=== PATIENT | male | born 1960 | race Caucasian/White ===

== ENCOUNTER 2017-11-19 19:04 | Inpatient (IN) | payer SELFPAY ==
[~2017-11-19] VITALS: Ht 175.3 cm; Wt 83.5 kg
--- NOTE | 2017-11-19 19:04 | ER Report ---
History and Physical Time Seen By MD: 19:04 HPI/ROS CHIEF COMPLAINT: Difficulty Breathing, vomiting HISTORY OF PRESENT ILLNESS: 57-year-old male brought in by EMS from home with vomiting. He's been sick for one week with flu-type symptoms. Patient denies significant past medical history he was a former smoker, quit 13 years ago. Patient states she's been very thirsty and drinking lots of water. He states he 's been vomiting up approximate 70% when he's been drinking. He denies fever, chills or productive cough. He has 3-4 word dyspnea on arrival. Patient notes that he suffers from severe GERD. He takes Prilosec occasionally REVIEW OF SYSTEMS: Respiratory: As above Cardiovascular: No chest pain, no palpitations. Gastrointestinal: As above Musculoskeletal: No back pain. 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 Former smoker, quit 13 years ago Reviewed Nurses Notes: Yes Old Medical Records Reviewed: Yes Constitutional Vital Sign - Last 24 Hours 11/19/17 11/19/17 11/19/17 11/19/17 19:05 19:19 19:22 19:22 Temp 98.5 Pulse 103 103 100 Resp 24 16 B/P (MAP) 142/88 Pulse Ox 97 97 97 O2 Delivery Room Air Room Air 11/19/17 11/19/17 11/19/17 11/19/17 19:23 19:23 19:34 20:04 Pulse 98 100 102 Pulse Ox 100 96 97 O2 Delivery Room Air 11/19/17 11/19/17 11/19/17 11/19/17 20:19 20:31 20:34 20:49 Pulse 185 93 109 Resp 17 13 18 B/P (MAP) 125/79 (94) Pulse Ox 96 96 96 11/19/17 11/19/17 21:00 21:15 Pulse 105 Resp 25 B/P (MAP) 139/79 (99) Pulse Ox 94 Physical Exam Vital signs stable, afebrile, pulse ox normal General Appearance: The patient is alert, has no immediate need for airway protection and no current signs of toxicity. 3-4word dyspnea ENT: Pupils equal and round no injection. Pharynx with mild erythema, dry mucous membranes Respiratory: Chest is non tender, lungs are clear to auscultation. No wheezing or rails Cardiac: regular rate and rhythm Gastrointestinal: Abdomen is soft and non tender, no masses, bowel sounds normal. Musculoskeletal: Neck: Neck is supple and non tender. Extremities have full range of motion and are non tender. Skin: No rashes or lesions. DIFFERENTIAL DIAGNOSIS: After history and physical exam differential diagnosis was considered for shortness of breath including but not limited to pulmonary infectious process, COPD, asthma, pulmonary embolus, diabetic ketoacidosis and congestive heart failure. Medical Decision Making Data Points Result Diagram: 11/20/17 0502 11/20/17 0502 Laboratory Hematology Test 11/19/17 00:00 11/19/17 19:12 11/19/17 19:13 Venous Blood pH 7.24 (7.31-7.41) Magnesium Level 2.3 mg/dl (1.7-2.2) Amylase Level 73 U/L (0-110) Lipase 157 U/L (23-300) Acetone, Qualitative Moderate D-Dimer Quantitative (PE/DVT) 0.37 ug/ml (0-0.50) B-Type Natriuretic Peptide 29 pg/ml (0-100) Influenza Virus Type A (PCR) Negative (NEGATIVE) Influenza Virus Type B (PCR) Negative (NEGATIVE) Chemistry Test 11/19/17 00:00 11/19/17 19:12 11/19/17 19:13 Venous Blood pH 7.24 (7.31-7.41) Magnesium Level 2.3 mg/dl (1.7-2.2) Amylase Level 73 U/L (0-110) Lipase 157 U/L (23-300) Acetone, Qualitative Moderate D-Dimer Quantitative (PE/DVT) 0.37 ug/ml (0-0.50) B-Type Natriuretic Peptide 29 pg/ml (0-100) Influenza Virus Type A (PCR) Negative (NEGATIVE) Influenza Virus Type B (PCR) Negative (NEGATIVE) Coagulation Test 11/19/17 19:12 D-Dimer Quantitative (PE/DVT) 0.37 ug/ml Toxicology Test 11/19/17 00:00 Acetone, Qualitative Moderate EKG/Imaging EKG Interpretation 12 lead EK Rhythm: normal sinus rhythm Clarita: normal QRS: normal ST segments: normal without evidence of ischemia or dysrhythmia 12 lead EK. Because SVT noted on monitor by nurse Rhythm: Supraventricular tachycardia, narrow complex 196 for the rate. Clarita: normal QRS: normal ST segments: normal Imaging X-ray: Single view chest x-ray was obtained. I viewed the images myself on the PACS system. My interpretation of the images is: No infiltrate, no effusion, normal mediastinum. The radiologist interpretation had no clinically significant variation from this interpretation. ED Course/Re-evaluation Clinical Indication for ER IV: Hydration, IV Access ED Course Patient was minute to an examination room. H&P was done. The differential diagnoses was considered. On local examination, patient appears grossly short of breath. He's having 3-4 dyspnea. His vital signs are stable. His pulse ox is normal. Diagnostic studies are ordered. He is treated with IV fluid hydration, DuoNeb. His history sounds like influenza comp acute by pneumonia. Diagnostic studies show acute DKA. Chest x-ray is negative. He is treated with IV insulin 10 units regular. He started on the insulin drip. He started on a bicarbonate drip after receiving 1 amp of bicarbonate. After returning from x-ray, he is noted to be in SVT at a rate of 200. An EKG is performed documented this. He is given diltiazem 10 mg IV 3 over the next 30 minutes. Finally is in a sinus rhythm at approximately 100 bpm. On transfer to ICU. 11/19/2017 8:25:10 pm case discussed with Dr. Eloisa Gibson hospitalist on-call , who accepts the patient permission ICU. Decision to Disposition Date: Nov 19, 2017 Decision to Disposition Time: 19:46 Critical Care Time I spent a total of 60 minutes of critical care time in obtaining history, performing a physical exam, bedside monitoring of interventions, collecting and interpreting tests and discussion with consultants but not including time spent performing procedures. Depart Departure Latest Vital Signs Vital Signs Date Time Temp Pulse Resp B/P (MAP) Pulse Ox O2 Delivery O2 Flow Rate FiO2 11/19/17 21:15 105 25 94 11/19/17 21:00 139/79 (99) 11/19/17 19:23 Room Air 11/19/17 19:05 98.5 Impression: Primary Impression: Diabetic ketoacidosis Additional Impressions: New onset type 1 diabetes mellitus, uncontrolled Hyponatremia Polycythemia Supraventricular tachycardia Condition: Improved Disposition: Admitted from ER Problem Qualifiers Primary Impression: Diabetic ketoacidosis Diabetes mellitus type: type 1 Diabetes mellitus complication detail: without coma Qualified Codes: E10.10 - Type 1 diabetes mellitus with ketoacidosis without coma KATLIN ARORA DO Nov 19, 2017 19:04
[2017-11-19] MEDS ORDERED: NS(*) 0.9% 1000 ML BAG 1,000 ML IV ONE ×2 (19:07→19:40)
[2017-11-19] MEDS ORDERED: ALBUTEROL/IPRATROPIUM 3 ML NEB NEB ONE (19:10)
[2017-11-19 19:17] LABS: PLATELET COUNT, AUTOMATED 194 K/uL (150-450)
[2017-11-19] MEDS ORDERED: ONDANSETRON 4 MG/2 ML VIAL IVP ONE ×2 (19:20→21:15)
[2017-11-19] MEDS ORDERED: EMS NS 0.9%(*) 1000 ML BAG 1,000 ML IV ONE (19:20)
--- NOTE | 2017-11-19 19:31 | EKG ---
FACILITY: [facility] - [place] PATIENT NAME: VASHTI SNELL : [id number] MR: [id number] V: [id number] EXAM DATE: ORDERING PHYSICIAN: KATLIN ARORA TECHNOLOGIST: Raimundo Guallpa Reason : Blood Pressure : / mmHG Vent. Rate : 100 BPM Atrial Rate : 100 BPM P-R Int : 168 ms QRS Dur : 100 ms QT Int : 414 ms P-R-T Axes : 048 068 024 degrees QTc Int : 534 ms Normal sinus rhythm Possible Left atrial enlargement Prolonged QT Abnormal ECG Confirmed by VITALIY VALDEZ ([id number]) on 11/19/2017 7:56:41 PM Referred By: Confirmed By:VITALIY VALDEZ
[2017-11-19] MEDS ORDERED: INSU HUM REG 100 U/ML(ER ONLY) 10 ML VIAL IVP ONE (19:40)
[2017-11-19] MEDS ORDERED: SODIUM BICAR(* 8.4% 50 ML SYR 50 ML SYR IVP ONE (19:40)
[2017-11-19] MEDS ORDERED: INSULIN HUM REG 100 UN/ML 3 ML 100 UNIT in NS(*) 0.9% 100 ML BAG 99 ML IV ONE (19:50)
[2017-11-19] MEDS ORDERED: INSULIN HUM REG 100 UN/ML 3 ML 100 UNIT in NS(*) 0.9% 100 ML BAG 100 ML IV ONE (19:50)
[2017-11-19] MEDS ORDERED: DILTIAZEM 5 MG/ML 5ML IVPUSH IVP ONE ×3 (20:15→21:20)
[2017-11-19] MEDS ORDERED: POTASSIUM CHL 20 MEQ TABCR PO ONE (20:15)
--- NOTE | 2017-11-19 20:30 | EKG ---
FACILITY: [facility] - [place], [place] PATIENT NAME: VASHTI SNELL : [id number] MR: [id number] V: [id number] EXAM DATE: ORDERING PHYSICIAN: KATLIN ARORA TECHNOLOGIST: Raimundo Guallpa Reason : Blood Pressure : / mmHG Vent. Rate : 196 BPM Atrial Rate : 196 BPM P-R Int : 114 ms QRS Dur : 096 ms QT Int : 162 ms P-R-T Axes : 038 070 259 degrees QTc Int : [address] and T wave abnormality, consider inferior ischemia ST and T wave abnormality, consider anterolateral ischemia Abnormal ECG No previous ECGs available Confirmed by VITALIY VALDEZ ([id number]) on 11/19/2017 8:44:21 PM Referred By: Confirmed By:VITALIY VALDEZ
--- NOTE | 2017-11-19 20:35 | RADIOLOGY IMAGING REPORT ---
FACILITY: [facility] PATIENT NAME: Nikhil Orozco : 1960 MR: [id number] V: [id number] EXAM DATE: ORDERING PHYSICIAN: KATLIN ARORA TECHNOLOGIST: Location: [facility] Patient: Nikhil Orozco : 1960 Visit/Account:[id number] Date of Sevice: 11/19/2017 CHEST: Indication: Respiratory distress. Technique: Frontal and lateral views were obtained. Comparison: None. Skeletal and soft tissue structures: There are mild degenerative changes in the thoracic spine. No ac porsche skeletal deformity is identified. Heart and mediastinum: Within normal limits. Lung ring: Well-expanded and clear. No focal or diffuse opacities. Pleural spaces: Unremarkable. Impression: No acute process. Report Dictated By: Mariano Wiggins MD at 11/19/2017 8:30 PM Report E-Signed By: Mariano Wiggins MD at 11/19/2017 8:32 PM WSN:[id number]
[2017-11-19] MEDS ORDERED: SODIUM BICAR 8.4%* 50 MEQ/50ML 100 MEQ in NS 0.45%(*) 1000 ML BAG 1,000 ML IV SCH (20:45)
[2017-11-19] MEDS ORDERED: PROMETHAZINE 25 MG/ML 1 ML AMP IVP ONE (21:20)
[2017-11-19 21:51] VITALS: BP 125/79
[2017-11-19] MEDS ORDERED: OMEP-218 PO (22:01)
[2017-11-19] MEDS ORDERED: KCL 2 MEQ/ML 20 MEQ/10 ML VIAL 20 MEQ in NS 0.45%(*) 1000 ML BAG 1,000 ML IV SCH (22:16)
[2017-11-19] MEDS ORDERED: INFLUENZA VIRUS VAC 0.5 ML SYR IM ONLY ONE (22:20)
[2017-11-19 22:30] VITALS: BP 107/78
[2017-11-19] MEDS ORDERED: NS 0.45%(*) 1000 ML BAG 1,000 ML ONE (22:44)
--- NOTE | 2017-11-19 22:48 | History & Physical ---
History of Present Illness Chief Complaint Nausea, vomiting and chills for one week. History of Present Illness The patient is a 57 year old male with PMH of GERD who presents with one week of N/V/D. The patient states he has felt feverish and has had chills with this. He has not seen a doctor in 23 years but does self treat GERD symptoms with omeprazole OTC. The patient states his appetite has been very poor and he has not eaten well for the past week. Prior to feeling ill one week ago, the patient denies weight loss, polydipsia, polyuria or polyphagia. He has had some pain in his neck and back due to old injuries. History Problems: (1) GERD (gastroesophageal reflux disease) Status: Chronic Home Meds Reported Medications Omeprazole Magnesium (PRILOSEC OTC) 20 Mg Tablet., 1 TAB PO QDAY, TAB 11/19/17 Allergies: Coded Allergies: No Known Drug Allergies (Unverified , 11/19/17) Patient History: FH: CAD (coronary artery disease) FATHER FH: COPD (chronic obstructive pulmonary disease) FATHER FH: HTN (hypertension) FATHER FH: dementia FATHER FH: pulmonary embolism FATHER Stroke or transient ischemic attack in father FATHER Vascular disease MOTHER Other Social/Family Hx Single. 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 Hx Smoking: Yes Smoking Status: Smoker: Status Unknown (Quit 13 years ago.) Hx Alcohol Use: Yes Alcohol Use: Occassional (Quit drinking heavily 13 years ago. Has had a couple of drinks only since then.) Hx Substance Use Disorder: Yes (Cocaine. Stopped 13 years ago.) Social Drug Use: Currently Social Drugs: Marijuana History of IV Drug Use: No Review of Systems Constitutional: Chills, No Weight Loss Neurological: Weakness Cardiovascular: No Chest Pain Respiratory: No Shortness of Breath Gastrointestinal: Nausea, Vomiting, Diarrhea Genitourinary: No Dysuria Musculoskeletal: Pain (Neck and back.) Psychiatric: No Depression Exam Vital Signs Vital Signs Date Time Temp Pulse Resp B/P (MAP) Pulse Ox O2 Delivery O2 Flow Rate FiO2 11/19/17 22:00 109 11/19/17 21:51 98.5 24 125/79 (94) 97 Room Air General Appearance: Alert, Awake, Afebrile, Other (Tremulous.) Neuro: No Gross deficits Eyes: PERRLA Neck: No Masses Cardiovascular: Other (Tachy, regular.) Respiratory: No Respiratory Distress, Clear to Auscultation (Anteriorly.) GI: Other (Abdomen soft, tender in the RUQ to palpation. No rebound. No masses. ) Extremities: Warm, Perfused Integumentary: Skin Intact without Lesion / Mass Psych: Appropriate Mood & Affect Medical Decision Making Data Points Result Diagram: 11/19/17191111/19/171911 Item Value Date Time Calcium Level 9.0 mg/dl 11/19/171911 Magnesium Level 2.3 mg/dl H 11/19/17 0000 Total Bilirubin 2.2 mg/dl H 11/19/171911 Aspartate Amino Transf (AST/SGOT) 22 U/L 11/19/171911 Alanine Aminotransferase (ALT/SGPT) 45 U/L 11/19/171911 Troponin I 0.014 ng/ml 11/19/171911 Total Protein 7.7 gm/dl 11/19/171911 Albumin 4.7 g/dl 11/19/171911 B-Type Natriuretic Peptide 29 pg/ml 11/19/171911 Lactate 2.5 mmol/L H 11/19/171911 Acetone, Qualitative Moderate 11/19/17 0000 Influenza Virus Type B (PCR) Negative 11/19/171912 Influenza Virus Type A (PCR) Negative 11/19/171912 Venous Blood pH 7.24 L 11/19/17 0000 D-Dimer Quantitative (PE/DVT) 0.37 ug/ml 11/19/171911 Blood cultures X 2 ordered. EKG / Imaging EKG Interpretation FACILITY: [facility] - [place] PATIENT NAME: NIKHIL SNELL : [id number] MR: [id number] V: [id number] EXAM DATE: ORDERING PHYSICIAN: KATLIN ARORA TECHNOLOGIST: Raimundo Guallpa Reason : Blood Pressure : / mmHG Vent. Rate : 196 BPM Atrial Rate : 196 BPM P-R Int : 114 ms QRS Dur : 096 ms QT Int : 162 ms P-R-T Axes : 038 070 259 degrees QTc Int : [address] and T wave abnormality, consider inferior ischemia ST and T wave abnormality, consider anterolateral ischemia Abnormal ECG No previous ECGs available Confirmed by VITALIY VALDEZ ([id number]) on 11/19/2017 8:44:21 PM Referred By: Confirmed By:VITALIY VALDEZ 07 T: JOSE/ FACILITY: [facility] - [place] PATIENT NAME: NIKHIL SNELL : [id number] MR: [id number] V: [id number] EXAM DATE: ORDERING PHYSICIAN: KATLIN ARORA TECHNOLOGIST: Raimundo Test Reason : Blood Pressure : / mmHG Vent. Rate : 100 BPM Atrial Rate : 100 BPM P-R Int : 168 ms QRS Dur : 100 ms QT Int : 414 ms P-R-T Axes : 048 068 024 degrees QTc Int : 534 ms Normal sinus rhythm Possible Left atrial enlargement Prolonged QT Abnormal ECG Confirmed by VITALIY VALDEZ ([id number]) on 11/19/2017 7:56:41 PM Referred By: Confirmed By:VITALIY VALDEZ 11 T: JOSE/ Monitor Interpretation: Sinus Tachycardia Imaging FACILITY: [facility] - [place] PATIENT NAME: Nikhil Snell : 1960 MR: [id number] V: [id number] EXAM DATE: ORDERING PHYSICIAN: KATLIN ARORA TECHNOLOGIST: Location: [facility] Patient: Nikhil Snell : 1960 Visit/Account:[id number] Date of Sevice: 11/19/2017 CHEST: Indication: Respiratory distress. Technique: Frontal and lateral views were obtained. Comparison: None. Skeletal and soft tissue structures: There are mild degenerative changes in the thoracic spine. No acute skeletal deformity is identified. Heart and mediastinum: Within normal limits. Lung ring: Well-expanded and clear. No focal or diffuse opacities. Pleural spaces: Unremarkable. Impression: No acute process. Report Dictated By: Mariano Wiggins MD at 11/19/2017 8:30 PM Report E-Signed By: Mariano Wiggins MD at 11/19/2017 8:32 PM WSN:[id number] Pre-Admit Course ED Medications Zofran, NS, insulin, potassium chloride, diltiazem, promethazine, sodium bicarb , Duoneb. Medical Record Review: Yes (ER notes.) Assessment and Plan Problems: (1) Diabetic ketoacidosis Status: Acute Assessment & Plan: BS was elevated at 469. Acetone was measured at moderate. His pH was 7.2. Potassium 3.8. Sodium 117. Will repeat a BMP to reassess electrolytes immediately. Continue insulin gtt. Monitor glucoses hourly. Adjust rate as needed. To keep from increasing his sodium level too quickly will place on 1/2NS with 20meq of KCl at 125ml/hr. Once his glucose is nearing 200, will switch to D51/2 NS with 20meq KCl. Magnesium level was WNL.Initial lactate high. Will repeat. (2) Nausea & vomiting Assessment & Plan: LFTs are WNL. Treat with antiemetics. Will use promethazine rather than Zofran as his QT interval is prolonged. Hydrate. Protonix bid IV. (3) New onset type 1 diabetes mellitus, uncontrolled Status: Acute Assessment & Plan: Will order a C-peptide level and HgA1c. (4) Hyponatremia Status: Acute Assessment & Plan: Severe. His sodium corrects to about 122. Will hydrate as above and monitor BMPs every 6 hours. Adjust fluids as needed. (5) Supraventricular tachycardia Status: Acute Assessment & Plan: The patient had several bouts of SVT while in the ER. He was successfully treated with Cardizem pushes. Will monitor and treat as needed. (6) GERD (gastroesophageal reflux disease) Status: Chronic Assessment & Plan: Will place on IV Protonix 40mg bid. Time Spent on Plan of Care: < 30 min Venous Thromboembolism VTE Risk Physician Assess for VTE Risk: Yes Patient's VTE Risk: Low VTE Diagnostic Test 2 Days Prior to Admit: No Antithrombotics Is Pt On Any Antithrombotics?: Yes Exam Sepsis Risk: No Definite Risk Problem Qualifiers (1) Diabetic ketoacidosis: Diabetes mellitus type: type 1 Diabetes mellitus complication detail: without coma Qualified Codes: E10.10 - Type 1 diabetes mellitus with ketoacidosis without coma (2) GERD (gastroesophageal reflux disease): Esophagitis presence: esophagitis presence not specified Qualified Codes: K21.9 - Gastro-esophageal reflux disease without esophagitis VITALIY REBOLLEDO MD Nov 19, 2017 22:48
[2017-11-19] MEDS ORDERED: KCL 2 MEQ/ML 20 MEQ/10 ML VIAL ONE ×2 (22:49)
[2017-11-19 23:00] VITALS: BP 120/77
[2017-11-19] MEDS ORDERED: INS HUM REG* 100 U/ML(ER ONLY) 100 UNIT in NS(*) 0.9% 100 ML BAG 99 ML IV SCH (23:15)
[2017-11-19] MEDS: PANTOPRAZOLE SOD 40 MG IV VIAL IVP SCH (23:28)
[2017-11-19 23:30] VITALS: BP 118/72
[2017-11-19] MEDS: KCL (*) 20 MEQ/100 ML PREMIX 100 ML IV SCH (23:37)
[2017-11-20] VITALS (28 sets, daily range): BP systolic 97–144; BP diastolic 60–80; Ht 175.3 cm; Wt 83.5 kg
[2017-11-20] MEDS ORDERED: KCL/D1/2NS 20 MEQ 1000 ML 1,000 ML IV ONE (00:35)
[2017-11-20] MEDS ORDERED: KCL 2 MEQ/ML 20 MEQ/10 ML VIAL 20 MEQ in D5 1/2 NS(*) 1000 ML BAG 1,000 ML IV SCH (00:40)
[2017-11-20] MEDS ORDERED: KCL/D1/2NS 20 MEQ 1000 ML 1,000 ML IV SCH (00:55)
[2017-11-20] MEDS: KCL (*) 20 MEQ/100 ML PREMIX 100 ML IV SCH ×3 (01:59→21:09)
[2017-11-20] MEDS ORDERED: INS HUM REG* 100 U/ML(ER ONLY) 100 UNIT in NS(*) 0.9% 100 ML BAG 99 ML IV SCH (02:28)
[2017-11-20 05:21] LABS: PLATELET COUNT, AUTOMATED 137 K/uL (150-450)
[2017-11-20] MEDS ORDERED: INSULIN GLARGINE 100 U/ML 3 ML PEN SUBQ SCH (09:00)
[2017-11-20] MEDS: PANTOPRAZOLE SOD 40 MG IV VIAL IVP SCH ×2 (09:04→21:09)
[2017-11-20] MEDS: ENOXAPARIN 40 MG/0.4ML SYR SC SCH (09:05)
[2017-11-20] MEDS: PROMETHAZINE 25 MG/ML 1 ML AMP IVP PRN ×2 (09:11→21:10)
--- NOTE | 2017-11-20 10:01 | Hospitalist Progress Note ---
Subjective Progress Notes Subjective Overall improving. He did have some nausea this morning. Physical Exam Vital Signs Date Time Temp Pulse Resp B/P (MAP) Pulse Ox O2 Delivery O2 Flow Rate FiO2 11/20/17 07:30 104 17 103/74 (84) 87 11/20/17 07:17 98.8 Room Air Intake and Output 11/21/17 07:00 Intake Total 1516.1 ml Output Total 50 ml Balance 1466.1 ml Intake Oral 1180 ml IV Total 336.1 ml Emesis 50 ml General Appearance: Alert, Awake, No Acute Distress Cardiovascular: Regular Rate and Rhythm Respiratory: Clear to Auscultation GI: Soft and Non-Tender Extremities: No Edema Result Diagram: 11/20/17 0502 11/20/17 0502 Monitor Interpretation: Sinus Tachycardia Assessment and Plan Problems: (1) Diabetic ketoacidosis Status: Acute Assessment & Plan: He presented with months of excessive thirst and polyuria and then a week of N/V/D. In the ER, glucose 469, acetone moderate, AG 34, bicarbonate 7, and venous pH was 7.2. He was aggressively hydrated and started on an insulin drip. The AG has normalized and the bicarbonate 20. His glucose is 187-203 since about midnight. He will be given 20 units of Lantus, and the insulin drip/D5 1/2 NS stopped. HgA1c and C-Peptide pending. Diabetic counselor to see tomorrow. Likely, he will go home on Lantus, but potentially could be switched to oral treatment based on his C-Peptide (it won't be back for a number of days) (2) Nausea & vomiting Assessment & Plan: LFTs are WNL. Treat with antiemetics. Will use promethazine rather than Zofran as his QT interval is prolonged. Protonix bid IV. (3) Hyponatremia Status: Acute Assessment & Plan: Likely, related to the vomiting and diarrhea. His sodium corrected to about 122 upon admission. This morning it is about 127 with correction. He was hydrated, but now saline locked. BMP later this morning. (4) Supraventricular tachycardia Status: Acute Assessment & Plan: The patient had several bouts of SVT while in the ER. He was successfully treated with Cardizem pushes. Will monitor and treat as needed. (5) GERD (gastroesophageal reflux disease) Status: Chronic Assessment & Plan: Will place on IV Protonix 40mg bid. Exam Sepsis Risk: No Definite Risk Problem Qualifiers (1) Diabetic ketoacidosis: Diabetes mellitus type: type 1 Diabetes mellitus complication detail: without coma Qualified Codes: E10.10 - Type 1 diabetes mellitus with ketoacidosis without coma (2) GERD (gastroesophageal reflux disease): Esophagitis presence: esophagitis presence not specified Qualified Codes: K21.9 - Gastro-esophageal reflux disease without esophagitis CHINA LARKIN MD Nov 20, 2017 10:01
[2017-11-20] MEDS: INSULIN HUM LISPRO 100 UN/ML 3 ML VIAL SUBQ PRN ×3 (12:34→21:21)
[2017-11-20] MEDS ORDERED: NS(*) 0.9% 1000 ML BAG 1,000 ML IV ONE (18:20)
[2017-11-21 02:32] VITALS: BP 131/75
[2017-11-21 06:25] LABS: PLATELET COUNT, AUTOMATED 110 K/uL (150-450)
[2017-11-21 07:17] VITALS: BP 126/81
[2017-11-21] MEDS: INSULIN HUM LISPRO 100 UN/ML 3 ML VIAL SUBQ PRN ×2 (07:57→12:26)
[2017-11-21 08:45] VITALS: BP 129/82
[2017-11-21] MEDS ORDERED: INSULIN GLARGINE 100 U/ML 3 ML PEN SUBQ SCH (09:00)
[2017-11-21] MEDS ORDERED: INSU100I28 SQ (09:15)
[2017-11-21] MEDS ORDERED: INSU100I30 SUBQ (09:15)
[2017-11-21] MEDS: PANTOPRAZOLE SOD 40 MG IV VIAL IVP SCH (09:20)
--- NOTE | 2017-11-21 09:20 | Hospitalist Depart ---
Discharge Summary Reason for Hosp/Final Diag: (1) Diabetic ketoacidosis Status: Acute Hospital Course & Plan: He did present with hyperglycemia and ketoacidosis, but had no prior history of diagnosed diabetes. He was started on an insulin infusion and received fluid resuscitation. He has now weaned to subcutaneous insulin. He will discharge on Lantus and mealtime Humalog. (2) Nausea & vomiting Hospital Course & Plan: Resolved with treatment of DKA. (3) Hyponatremia Status: Acute Hospital Course & Plan: Resolved with correction of his glucose. (4) Supraventricular tachycardia Status: Acute Hospital Course & Plan: He did have several bouts of SVT while in the ER. He was successfully treated with Cardizem. Departure Latest Vital Signs Vital Signs 11/21/17 11/21/17 02:32 07:17 Temp 98.4 Pulse 92 Resp 17 B/P (MAP) 126/81 (96) Pulse Ox 96 O2 Delivery Room Air Weight (Pounds): 184 Weight (Ounces): 1.0 Result Diagram: 11/21/17 0537 11/21/17 0537 Condition: Improved Discharge: Home, Self Care Follow-Up Labs: Finger Sticks Discharge Instructions Home Meds Active Scripts Insulin Lispro 3 Ml Prefilled (HUMALOG 3 ML PEN) 100 Unit/1 Ml Insuln.pen, 4 UNIT SQ TIDAC, #3 ML 1 Refill Prov:LALI PRATER DO 11/21/17 Insulin Glargine,Hum.rec.anlog (LANTUS SOLOSTAR) 100 Unit/1 Ml Insuln.pen, 30 UNIT SUBQ DAILY, #3 ML 1 Refill Prov:LALI PRATER DO 11/21/17 Discontinued Reported Medications Omeprazole Magnesium (PRILOSEC OTC) 20 Mg Tablet., 1 TAB PO QDAY, TAB 11/19/17 Activity: As Tolerated Venous Thromboembolism Antithrombotics Is Pt On Any Antithrombotics?: Yes Problem Qualifiers (1) Diabetic ketoacidosis: Diabetes mellitus type: type 1 Diabetes mellitus complication detail: without coma Qualified Codes: E10.10 - Type 1 diabetes mellitus with ketoacidosis without coma LALI PRATER DO Nov 21, 2017 09:20
[2017-11-21] MEDS: ENOXAPARIN 40 MG/0.4ML SYR SC SCH (09:21)
[2017-11-21 12:27] VITALS: BP 139/92
--- NOTE | 2017-11-21 13:39 | Medical Nutrition Therapy ---
Nutrition Anthropometrics Height (Inches): 69.00 Height (Calculated Centimeters: 175.063211 Weight (Pounds): 184 Weight (Calculated Kilograms): 83.489 BMI Calculated: 27.17 Awais Nutrition Score: Probably Inadequate Awais Nutrition Risk Score: 20 Dietary Referral Nutrition Risk Factors: Nutrition Risk Comment: Physical Findings Physical Appearance: Overweight BMI 25-29 Skin Appearance Skin Appearance: Edema Edema Location Modifier: Edema Location: Type of Edema: Degree of Edema: Gastrointestinal Symptoms GI Symtoms: Heartburn Tube Present: Bowel Sounds: Recent Bowel Pattern: Stool Characteristics: Nutrition/Food History Breakfast: eggs, sausage, 1 sl WW toast Lunch: sandwich Dinner: meat, starch Snacks: candy- large amount Nutritional Diagnosis Nutritional Risk Acuity 2: Pr Appetite > 3d, Diabetes New Dx, DKA Nutritional Acuity: 2-Moderate Adjusted Energy Requirement Re: 2500 (30 kcal/kg) Protein Requirement: 83 (1gm/kg) Fluid Requirement: 2500 (30ml/kg) Nutrition Intervention: Cont diet as ordered, Encourage intake Nutritional Education Nutrition Education Topic: Diabetic Nutrition Learning Readiness: Interested Teaching Methods: Discussion, Handout Response to Teaching: Verbalize understanding, Reinforcement needed Teaching Recipient: Patient Nutrition Counseling: Reviewed glycemic response to foods. Discussed CHO to consume for insulin rx. Discussed BG testing. Reviewed CHO content of foods and gave meal plan of 45-60gm CHO/meal. Pt states he eat "a lot" of candy before bedtime. Recommend having a protein and CHO before bedtime. If craving candy. Recommend limiting to 5gm CHO i.e 2 hersy kisses or a dove chocolate. Recommended pt go to [facility] for more education. Nutrition Monitoring & Eval Nutrition Goals: Eat 75-100% Meal RD Patient Assessment Time: [address] Assessment Type: RD Assessment Patient Nutrition Acuity: 2-Moderate Follow Up Date: Nov 25, 2017 Nutritional Comment: 3/4 Pt with new dx T1DM and DKA. Admitting BG 469, has declined to 200's. Pt is receiving insulin. Diet was just advanced to carb controlled. No intake reported at this time. Pt reporting months of excessive thirst and polyuria and then a week of N/V/D. Nursing states pt not feeling well today, will start diabetic education 11/21. 11/21 Pt cont N/V. Ate 25-50% of meals. Provided diabetic diet education and discussed glucometer testing. Pt will be given glucometer and instructed in hopsital. Recommend pt f/u with [facility]. ANA GUILLEN Nov 21, 2017 13:39
== END 2017-11-21 15:51 | disposition home or self-care (01) | DRG 638 ==
LOC: ER 19:06 → ICU 21:22 → MED 11-20 18:24
PROVIDERS: ADMIT Internal Medicine; ATTEND Internal Medicine
DX: E10.10 Type 1 diabetes mellitus with ketoacidosis without coma (principal); E87.1 Hypo-osmolality and hyponatremia; I47.1 Supraventricular tachycardia; K21.9 Gastro-esophageal reflux disease without esophagitis; D75.1 Secondary polycythemia; Z87.891 Personal history of nicotine dependence
CPT/HCPCS: 36415; 36416; 71046; 81001; 82009; 82040; 82150; 82247; 82310; 82374; 82435; 82565; 82800; 82947; 82948; 83036; 83605; 83690; 83735; 83880; 84075; 84132; 84155; 84295; 84450; 84460; 84484; 84520; 84681; 85025; 85379; 87502; 93005; 94640; 96365; 96368; 96375; 96376; 97161; 99285; 99291; C9113; J1650; J1815; J2405; J2550; J3480; J3490; J7030; J7050

== ENCOUNTER → 2017-11-19 | Outpatient (CLI) | payer SELFPAY ==
[~2017-11-19] MED LIST: INSU100I28 SQ; INSU100I30 SUBQ; OMEP-218 PO
[2017-11-20 11:03] VITALS: BMI 27.2
== END ==
LOC: AMB 18:47
PROVIDERS: ATTEND Nurse Practitioner
DX: R53.1 Weakness (principal); R11.10 Vomiting, unspecified; R68.83 Chills (without fever); R06.02 Shortness of breath
CPT/HCPCS: A0425; A0427

== ENCOUNTER 2018-02-02 21:56 | Emergency (ER) | payer SELFPAY ==
[2017-11-20 11:03] VITALS: Wt 90.7 kg
--- NOTE | 2018-02-02 22:01 | ER Report ---
History and Physical Time Seen By MD: 22:01 HPI/ROS CHIEF COMPLAINT: Vomiting, abdominal pain, fever HISTORY OF PRESENT ILLNESS: 57-year-old insulin-dependent diabetic. Patient's been sick with vomiting all day, not feeling well. He said low-grade fever. She had one episode of diarrhea. Patient was admitted approximately 2 months ago with DKA. Patient denies rhinitis, sore throat or cough. Patient notes no dysuria. REVIEW OF SYSTEMS: Respiratory: No cough, no dyspnea. Cardiovascular: No chest pain, no palpitations. Gastrointestinal: As above Musculoskeletal: No back pain. Allergies: Coded Allergies: No Known Drug Allergies (Unverified , 11/19/17) Home Meds Active Scripts Ondansetron Hcl (ZOFRAN) 4 Mg Tablet, 4 MG PO Q6H Y for NAUSEA/VOMITING, #10 Prov:KATLIN ARORA DO 02/02/18 Insulin Lispro 100 Un/Ml Pen (HUMALOG 3 ML PEN) 100 Unit/1 Ml Insuln.pen, 4 UNIT SQ TIDAC, #3 ML 1 Refill Prov:LALI PRATER DO 11/21/17 Insulin Glargine 100 Un/Ml Pen (LANTUS SOLOSTAR PEN) 100 Unit/1 Ml Insuln.pen, 30 UNIT SUBQ DAILY, #3 ML 1 Refill Prov:LALI PRATER DO 11/21/17 Reviewed Nurses Notes: Yes Old Medical Records Reviewed: Yes Hx Smoking: Yes Smoking Status: Smoker: Status Unknown Hx Alcohol Use: Yes Constitutional Vital Sign - Last 24 Hours 02/02/18 02/02/18 02/02/18 02/02/18 22:04 22:09 22:15 22:26 Temp 98.7 Pulse 83 Resp 19 B/P (MAP) 176/109 (131) 176/109 150/108 (122) Pulse Ox 98 98 O2 Delivery Room Air 02/02/18 02/02/18 02/02/18 02/02/18 22:30 22:56 23:01 23:30 Pulse 92 82 Resp 21 16 B/P (MAP) 149/89 (109) 139/90 (106) Pulse Ox 96 96 02/02/18 02/03/18 02/03/18 23:31 00:00 00:01 Pulse 94 90 Resp 30 13 B/P (MAP) 113/77 (89) Pulse Ox 93 90 Physical Exam Vital signs stable, afebrile, pulse ox normal General Appearance: The patient is alert, has no immediate need for airway protection and no current signs of toxicity. HEENT: Pupils equal and round no injection. Oropharynx without redness or exudate, mucous membranes are moist Respiratory: Chest is non tender, lungs are clear to auscultation. Cardiac: regular rate and rhythm Gastrointestinal: Abdomen is soft, epigastric tenderness, no masses, bowel sounds normal. Musculoskeletal: Neck: Neck is supple and non tender. Extremities have full range of motion and are non tender. Skin: No rashes or lesions. DIFFERENTIAL DIAGNOSIS: After history and physical exam differential diagnosis was considered for DKA, gastroneuritis, food poisoning, viral syndrome, abdominal pain including but not limited to appendicitis, cholecystitis, gastritis and urinary tract infection. Medical Decision Making Data Points Result Diagram: 02/02/184 02/02/184 Laboratory Hematology Test 02/02/18 22:24 Red Blood Count 5.98 M/uL (4.00-5.60) Mean Corpuscular Volume 91.5 fL (80.0-96.0) Mean Corpuscular Hemoglobin 32.6 pg (26.0-33.0) Mean Corpuscular Hemoglobin Concent 35.7 g/dL (32.0-36.0) Red Cell Distribution Width 14.3 % (11.5-14.5) Mean Platelet Volume 9.6 fL (7.2-11.1) Neutrophils (%) (Auto) 85.5 % (39.4-72.5) Lymphocytes (%) (Auto) 6.0 % (17.6-49.6) Monocytes (%) (Auto) 8.2 % (4.1-12.4) Eosinophils (%) (Auto) 0.0 % (0.4-6.7) Basophils (%) (Auto) 0.3 % (0.3-1.4) Nucleated RBC Relative Count (auto) 0.0 /100WBC Neutrophils # (Auto) 12.7 K/uL (2.0-7.4) Lymphocytes # (Auto) 0.9 K/uL (1.3-3.6) Monocytes # (Auto) 1.2 K/uL (0.3-1.0) Eosinophils # (Auto) 0.0 K/uL (0.0-0.5) Basophils # (Auto) 0.0 K/uL (0.0-0.1) Nucleated RBC Absolute Count (auto) 0.01 K/uL Blood Gas Patient Temperature Unknown DEGREES Venous Blood pH 7.56 (7.31-7.41) Venous Blood Partial Pressure CO2 < 25 mmHg Venous Blood Partial Pressure O2 41 mmHg Venous Blood HCO3 22 mmol/L Venous Blood Oxygen Saturation 85 % Venous Blood Base Excess 0 mmol/L Oxygen Liters/Minute Unknown Sodium Level 142 mmol/L (137-145) Potassium Level 4.3 mmol/L (3.5-5.0) Chloride Level 98 mmol/L (98-107) Carbon Dioxide Level 20 mmol/L (22-30) Blood Urea Nitrogen 33 mg/dl (9-21) Creatinine 1.90 mg/dl (0.66-1.25) Glomerular Filtration Rate Calc 37.0 Random Glucose 330 mg/dl (75-110) Osmolality 312 mOSM/K (275-295) Lactate 3.8 mmol/L (0.7-2.1) Calcium Level 11.3 mg/dl (8.4-10.2) Total Bilirubin 2.4 mg/dl (0.2-1.3) Aspartate Amino Transf (AST/SGOT) 22 U/L (0-35) Alanine Aminotransferase (ALT/SGPT) 32 U/L (0-56) Alkaline Phosphatase 103 U/L (0-126) Troponin I < 0.012 ng/ml Total Protein 8.5 gm/dl (6.3-8.2) Albumin 5.3 g/dl (3.5-5.0) Acetone, Qualitative Negative Chemistry Test 02/02/18 22:24 White Blood Count 14.8 k/uL (4.5-11.0) Red Blood Count 5.98 M/uL (4.00-5.60) Hemoglobin 19.5 g/dL (14.0-18.0) Hematocrit 54.8 % (42.0-52.0) Mean Corpuscular Volume 91.5 fL (80.0-96.0) Mean Corpuscular Hemoglobin 32.6 pg (26.0-33.0) Mean Corpuscular Hemoglobin Concent 35.7 g/dL (32.0-36.0) Red Cell Distribution Width 14.3 % (11.5-14.5) Platelet Count 256 K/uL (150-450) Mean Platelet Volume 9.6 fL (7.2-11.1) Neutrophils (%) (Auto) 85.5 % (39.4-72.5) Lymphocytes (%) (Auto) 6.0 % (17.6-49.6) Monocytes (%) (Auto) 8.2 % (4.1-12.4) Eosinophils (%) (Auto) 0.0 % (0.4-6.7) Basophils (%) (Auto) 0.3 % (0.3-1.4) Nucleated RBC Relative Count (auto) 0.0 /100WBC Neutrophils # (Auto) 12.7 K/uL (2.0-7.4) Lymphocytes # (Auto) 0.9 K/uL (1.3-3.6) Monocytes # (Auto) 1.2 K/uL (0.3-1.0) Eosinophils # (Auto) 0.0 K/uL (0.0-0.5) Basophils # (Auto) 0.0 K/uL (0.0-0.1) Nucleated RBC Absolute Count (auto) 0.01 K/uL Blood Gas Patient Temperature Unknown DEGREES Venous Blood pH 7.56 (7.31-7.41) Venous Blood Partial Pressure CO2 < 25 mmHg Venous Blood Partial Pressure O2 41 mmHg Venous Blood HCO3 22 mmol/L Venous Blood Oxygen Saturation 85 % Venous Blood Base Excess 0 mmol/L Oxygen Liters/Minute Unknown Glomerular Filtration Rate Calc 37.0 Osmolality 312 mOSM/K (275-295) Lactate 3.8 mmol/L (0.7-2.1) Calcium Level 11.3 mg/dl (8.4-10.2) Total Bilirubin 2.4 mg/dl (0.2-1.3) Aspartate Amino Transf (AST/SGOT) 22 U/L (0-35) Alanine Aminotransferase (ALT/SGPT) 32 U/L (0-56) Alkaline Phosphatase 103 U/L (0-126) Troponin I < 0.012 ng/ml Total Protein 8.5 gm/dl (6.3-8.2) Albumin 5.3 g/dl (3.5-5.0) Acetone, Qualitative Negative Toxicology Test 02/02/18 22:24 Acetone, Qualitative Negative EKG/Imaging EKG Interpretation 12 lead EK Rhythm: normal sinus rhythm with sinus arrhythmia [place]: normal QRS: normal ST segments: normal, no evidence of ischemia or dysrhythmia ED Course/Re-evaluation Clinical Indication for ER IV: Hydration, IV Access ED Course Patient was admitted to an examination room. H&P was done. The differential diagnosis was considered. On clinical examination. Patient has a benign nonsurgical abdomen. He is significant epigastric tenderness. Diagnostic studies are sent off. Patient's complaining of vomiting and diarrhea. Patient' s treated with IV fluid hydration, Zofran 4 mg IV. She needs to have severe nausea is given Phenergan 12.5 mg and Toradol 30 mg IV. He is given 2 L of crystalloid. Feels much better. Diagnostic studies show elevated white blood cell count. There is no evidence of DKA. His pH is normal. There is no acetone in his serum. Patient will be discharged home and advised to monitor sugars closely. He is given a prescription for Zofran for nausea control. Decision to Disposition Date: February 02, 2018 Decision to Disposition Time: 23:28 Depart Departure Latest Vital Signs Vital Signs Date Time Temp Pulse Resp B/P (MAP) Pulse Ox O2 Delivery O2 Flow Rate FiO2 02/03/18 00:01 90 13 90 02/03/18 00:00 113/77 (89) 02/02/18 22:09 98.7 Room Air Impression: Primary Impression: Nausea & vomiting Additional Impressions: Abdominal pain Type I diabetes mellitus Condition: Improved Disposition: HOME OR SELF-CARE New Scripts Ondansetron Hcl (ZOFRAN) 4 Mg Tablet 4 MG PO Q6H Y for NAUSEA/VOMITING, #10 Prov: KATLIN ARORA DO 02/02/18 Patient Instructions: Abdominal Pain (ED), Acute Nausea and Vomiting (ED), Diabetic Hyperglycemia (ED) Additional Instructions: Follow clear liquid diet for 12 hours, then advance to [place] diet, bananas, rice , applesauce and toast Closely monitor your glucoses. Follow-up with your primary care if unimproved in 2-3 days Return to the ER for any worsening Problem Qualifiers Primary Impression: Nausea & vomiting Vomiting type: unspecified Vomiting Intractability: unspecified Qualified Codes: R11.2 - Nausea with vomiting, unspecified Additional Impressions: Abdominal pain Abdominal location: epigastric Qualified Codes: R10.13 - Epigastric pain Type I diabetes mellitus Diabetes mellitus complication status: without complication Qualified Codes: E10.9 - Type 1 diabetes mellitus without complications KATLIN ARORA DO February 02, 2018 22:01
[2018-02-02] MEDS ORDERED: ONDANSETRON 4 MG/2 ML VIAL IVP ONE (22:05)
[2018-02-02] MEDS ORDERED: NS(*) 0.9% 1000 ML BAG 1,000 ML IV ONE (22:05)
[2018-02-02 22:35] LABS: PLATELET COUNT, AUTOMATED 256 K/uL (150-450)
[2018-02-02] MEDS ORDERED: LR(*) 1000 ML BAG 1,000 ML VA PRN (23:10)
--- NOTE | 2018-02-02 23:14 | RADIOLOGY IMAGING REPORT ---
FACILITY: [facility] PATIENT NAME: Nikhil Orozco : 1960 MR: [id number] V: [id number] EXAM DATE: ORDERING PHYSICIAN: KATLIN ARORA TECHNOLOGIST: Location: [facility] Patient: Nikhil Orozco : 1960 Visit/Account:[id number] Date of Sevice: 02/02/2018 PORTABLE CHEST: Indication: Fever and vomiting. Technique: A single frontal film was obtained. Comparison: 11/19/2017 Skeletal and soft tissue structures: Intact and unremarkable. Heart and mediastinum: Within normal limits. Lung ring: Well-expanded and clear. No focal or diffuse opacities. Pleural spaces: Unremarkable. Impression: No acute process or significant change. Report Dictated By: Mariano Wiggins MD at 02/02/2018 11:09 PM Report E-Signed By: Mariano Wiggins MD at 02/02/2018 11:10 PM [id number]
[2018-02-02] MEDS ORDERED: KETOROLAC 30 MG/ML VIAL IVP ONE (23:15)
[2018-02-02] MEDS ORDERED: PROMETHAZINE 25 MG/ML 1 ML AMP IVP ONE (23:15)
[2018-02-02] MEDS ORDERED: ONDA4TAB97 PO (23:32)
[2018-02-03] VITALS: BP 113/77
[2018-02-03] MEDS ORDERED: ONDANSETRON 4 MG ODT TH SL ONE (00:15)
--- NOTE | 2018-02-03 01:05 | EKG ---
[place] [facility] [place] NAME: VASHTI SNELL : [id number] MR: [id number] V: [id number] EXAM DATE: ORDERING PHYSICIAN: KATLIN ARORA TECHNOLOGIST: KELLI Test Reason : DIABETIC KETOACIDOSS Blood Pressure : / mmHG Vent. Rate : 079 BPM Atrial Rate : 079 BPM P-R Int : 168 ms QRS Dur : 092 ms QT Int : 372 ms P-R-T Axes : 058 069 067 degrees QTc Int : 426 ms Normal sinus rhythm with sinus arrhythmia Normal ECG When compared with ECG of 19-NOV-2017 20:08, Vent. rate has decreased BY 117 BPM Non-specific change in ST segment in Inferior leads ST no longer depressed in Anterolateral leads T wave inversion no longer evident in Inferior leads T wave inversion no longer evident in Anterolateral leads Confirmed by CHINA LARKIN ([id number]) on 02/03/2018 1:53:13 AM Referred By: Confirmed By:CHINA LARKIN
[2018-02-04] MEDS ORDERED: ONDA4TAB PO (13:35)
== END 2018-02-03 00:25 | disposition home or self-care (01) ==
LOC: ER 22:16
DX: E10.9 Type 1 diabetes mellitus without complications (principal); R10.13 Epigastric pain; R11.2 Nausea with vomiting, unspecified
CPT/HCPCS: 71045; 82009; 82803; 83605; 83930; 84484; 85025; 93005; 96361; 96374; 96375; 99284; J1885; J2405; J2550; J7030; J7120; S0119; 82040; 82247; 82310; 82374; 82435; 82565; 82947; 84075; 84132; 84155; 84295; 84450; 84460; 84520

== ENCOUNTER 2018-02-04 09:00 | Emergency (ER) | payer SELFPAY ==
[2017-11-20 11:03] VITALS: Wt 90.7 kg
[~2018-02-04 09:00] MED LIST changes: +ONDA4TAB97 PO
--- NOTE | 2018-02-04 09:21 | ER Report ---
History and Physical Time Seen By MD: 09:05 Hx. of Stated Complaint: PT REPORTS VOMTING FOR 2.5 DAYS, DIABETIC, NOT ABLE TO KEEP ANYTHING DOWN HPI/ROS This is a 57-year-old male with a past medical history significant for diabetes. He was seen 2 days ago in the emergency department for the same complaint for which she is here today which is nausea and vomiting. Also complains of very mild diffuse abdominal pain. He has had decreased by mouth for the past few days as well. The symptoms seemed to start after he had a meal from [employer] 2 days ago. He denies any chest pain or shortness of breath. Symptoms have been constant since Tuesday. No urinary symptoms. Also states that his sugars have been elevated into the 200 range as well. Remainder of the 14 system rev: Yes Allergies: Coded Allergies: No Known Drug Allergies (Unverified , 02/04/18) Home Meds Active Scripts Ondansetron (ZOFRAN ODT) 4 Mg Tab.rapdis, 4 MG PO Q6H Y for NAUSEA/VOMITING, # 20 TAB.FRANCESCA 0 Refills Prov:JAIC CORREIA MD 02/04/18 Ondansetron Hcl (ZOFRAN) 4 Mg Tablet, 4 MG PO Q6H Y for NAUSEA/VOMITING, #10 Prov:KATLIN ARORA DO 02/02/18 Insulin Lispro 100 Un/Ml Pen (HUMALOG 3 ML PEN) 100 Unit/1 Ml Insuln.pen, 4 UNIT SQ TIDAC, #3 ML 1 Refill Prov:LALI PRATER DO 11/21/17 Insulin Glargine 100 Un/Ml Pen (LANTUS SOLOSTAR PEN) 100 Unit/1 Ml Insuln.pen, 30 UNIT SUBQ DAILY, #3 ML 1 Refill Prov:LALI PRATER DO 11/21/17 Reviewed Nurses Notes: Yes Old Medical Records Reviewed: Yes Hx Smoking: Yes Smoking Status: Smoker: Status Unknown Hx Substance Use Disorder: Yes (Cocaine. Stopped 13 years ago.) Hx Alcohol Use: Yes Constitutional Vital Sign - Last 24 Hours 02/04/18 02/04/18 02/04/18 02/04/18 09:03 09:10 09:30 10:00 Temp 98.1 Pulse 79 76 76 Resp 16 B/P (MAP) 173/101 173/101 (125) 164/97 (119) 155/93 (113) Pulse Ox 92 95 97 O2 Delivery Room Air 02/04/18 02/04/18 10:05 10:30 Pulse 74 B/P (MAP) 155/93 (113) Pulse Ox 99 Intake and Output 02/04/18 02/04/18 02/05/18 15:00 23:00 07:00 Intake Total 1000 ml Balance 1000 ml Physical Exam General Appearance: The patient is alert, has no immediate need for airway protection and no current signs of toxicity. Eyes: Pupils equal and round no injection. Respiratory: Chest is non tender, lungs are clear to auscultation. Cardiac: regular rate and rhythm Gastrointestinal: Abdomen is soft and non tender, no masses, bowel sounds normal. Extremities have full range of motion and are non tender. Skin: No rashes or lesions. DIFFERENTIAL DIAGNOSIS: After history and physical exam differential diagnosis was considered for abdominal pain including but not limited to appendicitis, cholecystitis, gastritis and urinary tract infection. Medical Decision Making Data Points Result Diagram: 02/04/1815 02/04/1815 Laboratory Hematology Test 02/04/18 00:00 02/04/18 09:15 02/04/18 12:08 Urine Color Yellow Urine Clarity Slightly-cloudy Urine pH 5.0 pH (4.8-9.5) Urine Specific [place] 1.024 Urine Protein 100 mg/dL (NEGATIVE) Urine Glucose (UA) 50 mg/dL (NEGATIVE) Urine Ketones 20 mg/dL (NEGATIVE) Urine Blood Negative (NEGATIVE) Urine Nitrite Negative (NEGATIVE) Urine Bilirubin Negative (NEGATIVE) Urine Urobilinogen Negative mg/dL (0.2-1.9) Urine Leukocyte Esterase Negative (NEGATIVE) Urine RBC None /HPF (0-2/HPF) Urine WBC 2 /HPF (0-5/HPF) Urine Squamous Epithelial Cells Moderate /LPF (</=FEW) Urine Bacteria Negative /HPF (NONE-FEW) Urine Hyaline Casts Many /LPF (NONE-FEW) Urine Mucus Few /HPF (NONE-FEW) Red Blood Count 6.09 M/uL (4.00-5.60) Mean Corpuscular Volume 90.7 fL (80.0-96.0) Mean Corpuscular Hemoglobin 32.2 pg (26.0-33.0) Mean Corpuscular Hemoglobin Concent 35.5 g/dL (32.0-36.0) Red Cell Distribution Width 14.2 % (11.5-14.5) Mean Platelet Volume 9.8 fL (7.2-11.1) Neutrophils (%) (Auto) 77.7 % (39.4-72.5) Lymphocytes (%) (Auto) 11.2 % (17.6-49.6) Monocytes (%) (Auto) 10.7 % (4.1-12.4) Eosinophils (%) (Auto) 0.1 % (0.4-6.7) Basophils (%) (Auto) 0.3 % (0.3-1.4) Nucleated RBC Relative Count (auto) 0.0 /100WBC Neutrophils # (Auto) 13.6 K/uL (2.0-7.4) Lymphocytes # (Auto) 2.0 K/uL (1.3-3.6) Monocytes # (Auto) 1.9 K/uL (0.3-1.0) Eosinophils # (Auto) 0.0 K/uL (0.0-0.5) Basophils # (Auto) 0.0 K/uL (0.0-0.1) Nucleated RBC Absolute Count (auto) 0.01 K/uL Sodium Level 136 mmol/L (137-145) Potassium Level 3.6 mmol/L (3.5-5.0) Chloride Level 88 mmol/L (98-107) Carbon Dioxide Level 25 mmol/L (22-30) Blood Urea Nitrogen 44 mg/dl (9-21) Creatinine 1.70 mg/dl (0.66-1.25) Glomerular Filtration Rate Calc 42.1 Random Glucose 231 mg/dl (75-110) Calcium Level 10.6 mg/dl (8.4-10.2) Total Bilirubin 4.7 mg/dl (0.2-1.3) Aspartate Amino Transf (AST/SGOT) 26 U/L (0-35) Alanine Aminotransferase (ALT/SGPT) 28 U/L (0-56) Alkaline Phosphatase 98 U/L (0-126) Total Protein 8.9 gm/dl (6.3-8.2) Albumin 5.2 g/dl (3.5-5.0) Lipase 124 U/L (23-300) Lactate 1.4 mmol/L (0.7-2.1) Chemistry Test 02/04/18 00:00 02/04/18 09:15 02/04/18 12:08 Urine Color Yellow Urine Clarity Slightly-cloudy Urine pH 5.0 pH (4.8-9.5) Urine Specific [place] 1.024 Urine Protein 100 mg/dL (NEGATIVE) Urine Glucose (UA) 50 mg/dL (NEGATIVE) Urine Ketones 20 mg/dL (NEGATIVE) Urine Blood Negative (NEGATIVE) Urine Nitrite Negative (NEGATIVE) Urine Bilirubin Negative (NEGATIVE) Urine Urobilinogen Negative mg/dL (0.2-1.9) Urine Leukocyte Esterase Negative (NEGATIVE) Urine RBC None /HPF (0-2/HPF) Urine WBC 2 /HPF (0-5/HPF) Urine Squamous Epithelial Cells Moderate /LPF (</=FEW) Urine Bacteria Negative /HPF (NONE-FEW) Urine Hyaline Casts Many /LPF (NONE-FEW) Urine Mucus Few /HPF (NONE-FEW) White Blood Count 17.4 k/uL (4.5-11.0) Red Blood Count 6.09 M/uL (4.00-5.60) Hemoglobin 19.6 g/dL (14.0-18.0) Hematocrit 55.3 % (42.0-52.0) Mean Corpuscular Volume 90.7 fL (80.0-96.0) Mean Corpuscular Hemoglobin 32.2 pg (26.0-33.0) Mean Corpuscular Hemoglobin Concent 35.5 g/dL (32.0-36.0) Red Cell Distribution Width 14.2 % (11.5-14.5) Platelet Count 261 K/uL (150-450) Mean Platelet Volume 9.8 fL (7.2-11.1) Neutrophils (%) (Auto) 77.7 % (39.4-72.5) Lymphocytes (%) (Auto) 11.2 % (17.6-49.6) Monocytes (%) (Auto) 10.7 % (4.1-12.4) Eosinophils (%) (Auto) 0.1 % (0.4-6.7) Basophils (%) (Auto) 0.3 % (0.3-1.4) Nucleated RBC Relative Count (auto) 0.0 /100WBC Neutrophils # (Auto) 13.6 K/uL (2.0-7.4) Lymphocytes # (Auto) 2.0 K/uL (1.3-3.6) Monocytes # (Auto) 1.9 K/uL (0.3-1.0) Eosinophils # (Auto) 0.0 K/uL (0.0-0.5) Basophils # (Auto) 0.0 K/uL (0.0-0.1) Nucleated RBC Absolute Count (auto) 0.01 K/uL Glomerular Filtration Rate Calc 42.1 Calcium Level 10.6 mg/dl (8.4-10.2) Total Bilirubin 4.7 mg/dl (0.2-1.3) Aspartate Amino Transf (AST/SGOT) 26 U/L (0-35) Alanine Aminotransferase (ALT/SGPT) 28 U/L (0-56) Alkaline Phosphatase 98 U/L (0-126) Total Protein 8.9 gm/dl (6.3-8.2) Albumin 5.2 g/dl (3.5-5.0) Lipase 124 U/L (23-300) Lactate 1.4 mmol/L (0.7-2.1) Urinalysis Test 02/04/18 00:00 Urine Color Yellow Urine Clarity Slightly-cloudy Urine pH 5.0 pH (4.8-9.5) Urine Specific [place] 1.024 Urine Protein 100 mg/dL (NEGATIVE) Urine Glucose (UA) 50 mg/dL (NEGATIVE) Urine Ketones 20 mg/dL (NEGATIVE) Urine Blood Negative (NEGATIVE) Urine Nitrite Negative (NEGATIVE) Urine Bilirubin Negative (NEGATIVE) Urine Urobilinogen Negative mg/dL (0.2-1.9) Urine Leukocyte Esterase Negative (NEGATIVE) Urine RBC None /HPF (0-2/HPF) Urine WBC 2 /HPF (0-5/HPF) Urine Squamous Epithelial Cells Moderate /LPF (</=FEW) Urine Bacteria Negative /HPF (NONE-FEW) Urine Hyaline Casts Many /LPF (NONE-FEW) Urine Mucus Few /HPF (NONE-FEW) EKG/Imaging Imaging Results: CT scan of the abdomen/pelvis was obtained. The results of the study are no acute findings. The study was read by the radiologist. I viewed the images myself on the PACS system. ED Course/Re-evaluation Clinical Indication for ER IV: Hydration ED Course This is a 57-year-old male with a past medical history significant for diabetes. He presents to the emergency department for the 2nd time in 2 days complaining of nausea and vomiting. He did not have any episodes of vomiting while in the emergency department. Noted is a leukocytosis. He had very mild abdominal pain, but given his leukocytosis and 2nd visit to the ED for the same complaint a CT scan of the abdomen and pelvis was obtained. No acute findings on his CT scan. He denies any chest pain or shortness of breath. The symptoms have improved after IV fluids and Zofran. He is able to take by mouth. He does not have any abdominal pain. I think his symptoms are likely secondary to a viral gastritis. He will follow-up with his primary care doc this week. I did give him a prescription for Zofran. Decision to Disposition Date: February 04, 2018 Decision to Disposition Time: 13:32 Depart Departure Latest Vital Signs Vital Signs Date Time Temp Pulse Resp B/P (MAP) Pulse Ox O2 Delivery O2 Flow Rate FiO2 02/04/18 10:30 155/93 (113) 02/04/18 10:05 74 99 02/04/18 09:03 98.1 16 Room Air Impression: Primary Impression: Nausea & vomiting Condition: Improved Disposition: HOME OR SELF-CARE New Scripts Ondansetron (ZOFRAN ODT) 4 Mg Tab.rapdis 4 MG PO Q6H Y for NAUSEA/VOMITING, #20 TAB.FRANCESCA 0 Refills Prov: JACI CORREIA MD 02/04/18 Patient Instructions: Acute Nausea and Vomiting (ED) Problem Qualifiers Primary Impression: Nausea & vomiting Vomiting type: unspecified Vomiting Intractability: non-intractable Qualified Codes: R11.2 - Nausea with vomiting, unspecified JACI CORREIA MD February 04, 2018 09:21
[2018-02-04] MEDS ORDERED: ONDANSETRON 4 MG/2 ML VIAL IVP ONE (09:30)
[2018-02-04] MEDS ORDERED: NS(*) 0.9% 1000 ML BAG 1,000 ML IV ONE (09:30)
[2018-02-04 09:39] LABS: PLATELET COUNT, AUTOMATED 261 K/uL (150-450)
--- NOTE | 2018-02-04 13:00 | RADIOLOGY IMAGING REPORT ---
FACILITY: [facility] PATIENT NAME: Nikhil Orozco : 1960 MR: [id number] V: [id number] EXAM DATE: ORDERING PHYSICIAN: JACI CORREIA TECHNOLOGIST: Location: [facility] Patient: Nikhil Orozco : 1960 Visit/Account:[id number] Date of Sevice: 02/04/2018 CT abdomen and pelvis without contrast Indication: Left lower quadrant pain. Elevated white blood cell count. Comparison: None Available. Technique: Axial CT images are obtained through the abdomen and pelvis. Reformatted coronal and sagit thea images were reviewed. IV contrast was not administered. One of the following dose optimization techniques was utilized in the performance of this exam: Autom ated exposure control; adjustment of the mA and/or kV according to the patient's size; or use of an i terative reconstruction technique. Specific details can be referenced in the facility's radiology C T exam operational policy. Findings: Lower lung ring: Lung bases are clear. Evaluation of the solid organs of the abdomen is limited without IV contrast. Liver: No focal parenchymal abnormality of the liver. Biliary: Gallbladder appears unremarkable as well as the intra and extra hepatic biliary system. Pancreas: Normal appearance. Spleen: Normal appearance. Adrenal glands: Unremarkable. Kidneys / retroperitoneum: No evidence of nephrolithiasis or hydronephrosis Bowel / peritoneum / mesenteries: There are scattered sigmoid colon diverticula. No evidence of wall thickening or pericolonic inflammation to suggest diverticulitis. No evidence of focal colitis. There is a normal appendix. No small bowel dilatation. Subtle stranding seen within the central mesentery compatible with a nonspecific enteritis. Lymph node assessment: No pathologic adenopathy identified. Pelvic structures: Appear unremarkable. Vessels: Scattered atherosclerotic calcifications seen throughout a nonaneurysmal abdominal aorta and branches. Musculoskeletal / Body wall: Degenerative changes involve the spine at multiple levels. There is a fat-containing left inguinal hernia. There is a small hiatal hernia. IMPRESSION: 1. No acute inflammatory process within the abdomen or the pelvis. 2. Colonic diverticula without diverticulitis. 3. Fat-containing left inguinal hernia. Report Dictated By: Yuval Sylvester at 02/04/2018 12:40 PM Report E-Signed By: Yuval Sylvester at 02/04/2018 12:55 PM [id number]
[2018-02-04] MEDS ORDERED: ONDA4TAB PO (13:35)
[2018-02-04 13:37] VITALS: BP 155/85
== END 2018-02-04 13:35 | disposition home or self-care (01) ==
LOC: ER 09:23
DX: R11.2 Nausea with vomiting, unspecified (principal); E11.9 Type 2 diabetes mellitus without complications; K57.30 Diverticulosis of large intestine without perforation or abscess without bleeding; K40.90 Unilateral inguinal hernia, without obstruction or gangrene, not specified as recurrent
CPT/HCPCS: 74176; 81001; 83605; 83690; 85025; 96361; 96374; 99284; J2405; J7030; 82040; 82247; 82310; 82374; 82435; 82565; 82947; 84075; 84132; 84155; 84295; 84450; 84460; 84520

== ENCOUNTER 2018-02-08 15:53 | Observation (INO) | payer SELFPAY ==
[~2018-02-08] VITALS: Ht 175.3 cm; Wt 81.8 kg
[~2018-02-08 15:53] MED LIST changes: +LABETALOL HCL 100 MG/20ML VIAL ONE; +ONDA4TAB PO; +ROCURONIUM BROM 10 MG/ML 10 ML ONE
[2018-02-08] MEDS ORDERED: NS(*) 0.9% 1000 ML BAG 1,000 ML IV ONE (16:10)
[2018-02-08] MEDS ORDERED: ONDANSETRON 4 MG/2 ML VIAL IVP ONE (16:10)
--- NOTE | 2018-02-08 16:15 | ER Report ---
History and Physical Time Seen By MD: 16:03 Hx. of Stated Complaint: PATIENT REPORT THAT HE IS HAVING ABDOMINAL PAIN, NAUSEA, VOMITING, CHILLS AND A RUNNY NOSE HPI/ROS CHIEF COMPLAINT: Nausea, vomiting, abdominal pain HISTORY OF PRESENT ILLNESS: Patient is a 57-year-old male who presents the ED with complaint of nausea, vomiting, abdominal pain for the past 7 days. Patient has been seen twice in the emergency department in this past week due to the symptoms. He has had blood work completed at both visits which did show some cytosis. He did have an abdominal/pelvis CT completed his last visit which did not show any acute process. He states that he has been taking Zofran with some relief of his nausea. He did go to his primary care provider today to get a refill of his Zofran but she wanted him to come to the emergency department for further evaluation. She was concerned about his gallbladder or appendix. Patient states he was diagnosed with diabetes 2 months ago. He denies any fever. He has not noted any chest pain or shortness of breath. Patient denies any headache. He has not noted any hematuria, dysuria, increased urinary frequency. REVIEW OF SYSTEMS: Constitutional: No fever, no chills. Eyes: No discharge. ENT: No sore throat. Cardiovascular: No chest pain, no palpitations. Respiratory: No cough, no shortness of breath. Gastrointestinal: See history of present illness. Genitourinary: See history of present illness. Musculoskeletal: No back pain. Skin: No rashes. Neurological: No headache. Allergies: Coded Allergies: No Known Drug Allergies (Unverified , 02/04/18) Home Meds Active Scripts Ondansetron (ZOFRAN ODT) 4 Mg Tab.rapdis, 4 MG PO Q6H Y for NAUSEA/VOMITING, # 20 TAB.FRANCESCA 0 Refills Prov:JACI CORREIA MD 02/04/18 Ondansetron Hcl (ZOFRAN) 4 Mg Tablet, 4 MG PO Q6H Y for NAUSEA/VOMITING, #10 Prov:KATLIN ARORA DO 02/02/18 Insulin Lispro 100 Un/Ml Pen (HUMALOG 3 ML PEN) 100 Unit/1 Ml Insuln.pen, 4 UNIT SQ TIDAC, #3 ML 1 Refill Prov:LALI PRATER DO 11/21/17 Insulin Glargine 100 Un/Ml Pen (LANTUS SOLOSTAR PEN) 100 Unit/1 Ml Insuln.pen, 30 UNIT SUBQ DAILY, #3 ML 1 Refill Prov:LALI PRATER DO 11/21/17 Reported Medications Lisinopril (LISINOPRIL) 10 Mg Tablet, 10 MG PO QDAY, TAB 02/08/18 Reviewed Nurses Notes: Yes Old Medical Records Reviewed: Yes Hx Smoking: Yes Smoking Status: Smoker: Status Unknown Hx Substance Use Disorder: Yes (Cocaine. Stopped 13 years ago.) Hx Alcohol Use: Yes Constitutional Vital Sign - Last 24 Hours 02/08/18 02/08/18 02/08/18 02/08/18 15:56 15:59 16:23 16:54 Temp 98.2 Pulse 80 Resp 20 B/P (MAP) 151/101 151/101 (118) 144/94 (111) Pulse Ox 99 02/08/18 02/08/18 02/08/18 02/08/18 17:01 17:06 17:15 17:21 Pulse 82 83 B/P (MAP) 129/85 (100) Pulse Ox 98 94 79 02/08/18 02/08/18 02/08/18 02/08/18 17:30 17:36 17:45 17:51 Pulse 74 76 B/P (MAP) 141/81 (101) 156/90 (112) Pulse Ox 93 98 02/08/18 02/08/18 02/08/18 02/08/18 18:00 18:06 18:11 18:15 Pulse 84 75 B/P (MAP) 135/89 (104) 127/70 (89) Pulse Ox 100 98 02/08/18 02/08/18 02/08/18 02/08/18 18:26 18:45 18:56 19:00 Pulse 73 B/P (MAP) 110/97 (101) 107/64 (78) Pulse Ox 98 96 02/08/18 02/08/18 02/08/18 02/08/18 19:11 19:15 19:26 19:30 Pulse 75 74 B/P (MAP) 122/80 (94) 110/65 (80) Pulse Ox 95 94 02/08/18 02/08/18 19:41 19:42 Pulse 82 78 Pulse Ox 97 97 Intake and Output 502/08/18 02/09/18 15:00 23:00 07:00 Intake Total 850 ml Balance 850 ml Physical Exam General Appearance: The patient is alert, has no immediate need for airway protection and no signs of toxicity. Patient appears to be in no acute distress. Eyes: Pupils equal and round no pallor or injection. ENT, Mouth: Mucous membranes are moist. Respiratory: There are no retractions, lungs are clear to auscultation. Cardiovascular: Regular rate and rhythm. Gastrointestinal: There is right upper quadrant, epigastric, right lower quadrant tenderness with palpation. No rebound or guarding is present. Normal bowel sounds in all 4 quadrants. Skin: Warm and dry, no rashes. Musculoskeletal: Neck is supple non tender. Extremities are nontender, nonswollen and have full range of motion. DIFFERENTIAL DIAGNOSIS: After history and physical exam differential diagnosis was considered for abdominal pain including but not limited to appendicitis, cholecystitis, gastritis and urinary tract infection. Medical Decision Making Data Points Result Diagram: 02/08/18 1625 02/08/18 1625 Laboratory Hematology Test 02/08/18 16:00 02/08/18 16:25 02/08/18 16:31 02/08/18 17:57 Urine Color Yellow Urine Clarity Clear Urine pH 5.0 pH (4.8-9.5) Urine Specific [place] 1.018 Urine Protein Negative mg/dL (NEGATIVE) Urine Glucose (UA) Negative mg/dL (NEGATIVE) Urine Ketones Negative mg/dL (NEGATIVE) Urine Blood Negative (NEGATIVE) Urine Nitrite Negative (NEGATIVE) Urine Bilirubin Negative (NEGATIVE) Urine Urobilinogen Negative mg/dL (0.2-1.9) Urine Leukocyte Esterase Negative (NEGATIVE) Urine RBC <1 /HPF (0-2/HPF) Urine WBC 1 /HPF (0-5/HPF) Urine Squamous Epithelial Cells None /LPF (</=FEW) Urine Bacteria Negative /HPF (NONE-FEW) Urine Hyaline Casts Few /LPF (NONE-FEW) Urine Mucus None /HPF (NONE-FEW) Red Blood Count 5.95 M/uL (4.00-5.60) Mean Corpuscular Volume 87.9 fL (80.0-96.0) Mean Corpuscular Hemoglobin 32.1 pg (26.0-33.0) Mean Corpuscular Hemoglobin Concent 36.6 g/dL (32.0-36.0) Red Cell Distribution Width 13.6 % (11.5-14.5) Mean Platelet Volume 10.1 fL (7.2-11.1) Neutrophils (%) (Auto) 66.1 % (39.4-72.5) Lymphocytes (%) (Auto) 18.9 % (17.6-49.6) Monocytes (%) (Auto) 14.0 % (4.1-12.4) Eosinophils (%) (Auto) 0.6 % (0.4-6.7) Basophils (%) (Auto) 0.4 % (0.3-1.4) Nucleated RBC Relative Count (auto) 0.1 /100WBC Neutrophils # (Auto) 8.7 K/uL (2.0-7.4) Lymphocytes # (Auto) 2.5 K/uL (1.3-3.6) Monocytes # (Auto) 1.9 K/uL (0.3-1.0) Eosinophils # (Auto) 0.1 K/uL (0.0-0.5) Basophils # (Auto) 0.1 K/uL (0.0-0.1) Nucleated RBC Absolute Count (auto) 0.02 K/uL Prothrombin Time 13.8 seconds (12.0-14.4) Prothromb Time International Ratio 1.05 Activated Partial Thromboplast Time 27 seconds (23-35) Sodium Level 124 mmol/L (137-145) Potassium Level 2.6 mmol/L (3.5-5.0) Chloride Level 82 mmol/L (98-107) Carbon Dioxide Level 28 mmol/L (22-30) Blood Urea Nitrogen 43 mg/dl (9-21) Creatinine 1.40 mg/dl (0.66-1.25) Glomerular Filtration Rate Calc 52.6 Random Glucose 131 mg/dl (75-110) Calcium Level 9.6 mg/dl (8.4-10.2) Total Bilirubin 5.0 mg/dl (0.2-1.3) Aspartate Amino Transf (AST/SGOT) 26 U/L (0-35) Alanine Aminotransferase (ALT/SGPT) 25 U/L (0-56) Alkaline Phosphatase 93 U/L (0-126) Total Protein 7.6 gm/dl (6.3-8.2) Albumin 4.2 g/dl (3.5-5.0) Lipase 11 U/L (23-300) Serum Alcohol < 10 mg/dl Lactate 1.6 mmol/L (0.7-2.1) Chemistry Test 02/08/18 16:00 02/08/18 16:25 02/08/18 16:31 02/08/18 17:57 Urine Color Yellow Urine Clarity Clear Urine pH 5.0 pH (4.8-9.5) Urine Specific [place] 1.018 Urine Protein Negative mg/dL (NEGATIVE) Urine Glucose (UA) Negative mg/dL (NEGATIVE) Urine Ketones Negative mg/dL (NEGATIVE) Urine Blood Negative (NEGATIVE) Urine Nitrite Negative (NEGATIVE) Urine Bilirubin Negative (NEGATIVE) Urine Urobilinogen Negative mg/dL (0.2-1.9) Urine Leukocyte Esterase Negative (NEGATIVE) Urine RBC <1 /HPF (0-2/HPF) Urine WBC 1 /HPF (0-5/HPF) Urine Squamous Epithelial Cells None /LPF (</=FEW) Urine Bacteria Negative /HPF (NONE-FEW) Urine Hyaline Casts Few /LPF (NONE-FEW) Urine Mucus None /HPF (NONE-FEW) White Blood Count 13.2 k/uL (4.5-11.0) Red Blood Count 5.95 M/uL (4.00-5.60) Hemoglobin 19.1 g/dL (14.0-18.0) Hematocrit 52.3 % (42.0-52.0) Mean Corpuscular Volume 87.9 fL (80.0-96.0) Mean Corpuscular Hemoglobin 32.1 pg (26.0-33.0) Mean Corpuscular Hemoglobin Concent 36.6 g/dL (32.0-36.0) Red Cell Distribution Width 13.6 % (11.5-14.5) Platelet Count 230 K/uL (150-450) Mean Platelet Volume 10.1 fL (7.2-11.1) Neutrophils (%) (Auto) 66.1 % (39.4-72.5) Lymphocytes (%) (Auto) 18.9 % (17.6-49.6) Monocytes (%) (Auto) 14.0 % (4.1-12.4) Eosinophils (%) (Auto) 0.6 % (0.4-6.7) Basophils (%) (Auto) 0.4 % (0.3-1.4) Nucleated RBC Relative Count (auto) 0.1 /100WBC Neutrophils # (Auto) 8.7 K/uL (2.0-7.4) Lymphocytes # (Auto) 2.5 K/uL (1.3-3.6) Monocytes # (Auto) 1.9 K/uL (0.3-1.0) Eosinophils # (Auto) 0.1 K/uL (0.0-0.5) Basophils # (Auto) 0.1 K/uL (0.0-0.1) Nucleated RBC Absolute Count (auto) 0.02 K/uL Prothrombin Time 13.8 seconds (12.0-14.4) Prothromb Time International Ratio 1.05 Activated Partial Thromboplast Time 27 seconds (23-35) Glomerular Filtration Rate Calc 52.6 Calcium Level 9.6 mg/dl (8.4-10.2) Total Bilirubin 5.0 mg/dl (0.2-1.3) Aspartate Amino Transf (AST/SGOT) 26 U/L (0-35) Alanine Aminotransferase (ALT/SGPT) 25 U/L (0-56) Alkaline Phosphatase 93 U/L (0-126) Total Protein 7.6 gm/dl (6.3-8.2) Albumin 4.2 g/dl (3.5-5.0) Lipase 11 U/L (23-300) Serum Alcohol < 10 mg/dl Lactate 1.6 mmol/L (0.7-2.1) Coagulation Test 02/08/18 16:25 Prothrombin Time 13.8 seconds Prothromb Time International Ratio 1.05 Activated Partial Thromboplast Time 27 seconds Toxicology Test 02/08/18 16:31 Serum Alcohol < 10 mg/dl Urinalysis Test 02/08/18 16:00 Urine Color Yellow Urine Clarity Clear Urine pH 5.0 pH (4.8-9.5) Urine Specific [place] 1.018 Urine Protein Negative mg/dL (NEGATIVE) Urine Glucose (UA) Negative mg/dL (NEGATIVE) Urine Ketones Negative mg/dL (NEGATIVE) Urine Blood Negative (NEGATIVE) Urine Nitrite Negative (NEGATIVE) Urine Bilirubin Negative (NEGATIVE) Urine Urobilinogen Negative mg/dL (0.2-1.9) Urine Leukocyte Esterase Negative (NEGATIVE) Urine RBC <1 /HPF (0-2/HPF) Urine WBC 1 /HPF (0-5/HPF) Urine Squamous Epithelial Cells None /LPF (</=FEW) Urine Bacteria Negative /HPF (NONE-FEW) Urine Hyaline Casts Few /LPF (NONE-FEW) Urine Mucus None /HPF (NONE-FEW) ED Course/Re-evaluation Clinical Indication for ER IV: Hydration ED Course Will obtain labs. Patient will be given 1 L normal saline bolus and 4 mm grams IV Zofran. 02/08/2018 6:16:54 pm - discussed patient with Dr. Chauhan, hospitalist from [facility] and Dr. Frey, senior radiation therapist from [facility] [place] after consultation but the patient did not believe that the patient needs a ERCP at this time. Advised to have the patient admitted to the local facility and hydrated and observed. Discussed patient with Dr. Gibson, hospitalist, who advises to obtain another CT of the abdomen/ pelvis. 02/08/2018 8:00:35 pm - discussed results of CT the abdomen and pelvis with Dr. Gibson, hospitalist, who will accept patient under his care. Discussed the results of all labs and imaging with the patient. Decision to Disposition Date: February 08, 2018 Decision to Disposition Time: 20:24 Depart Departure Latest Vital Signs Vital Signs Date Time Temp Pulse Resp B/P (MAP) Pulse Ox O2 Delivery O2 Flow Rate FiO2 02/08/18 19:42 78 97 02/08/18 19:30 110/65 (80) 02/08/18 15:56 98.2 20 Impression: Primary Impression: Leukocytosis Additional Impressions: Hyponatremia Hypokalemia Nausea & vomiting Abdominal pain Hyperbilirubinemia Condition: Improved Disposition: Admitted from ER Problem Qualifiers Primary Impression: Leukocytosis Leukocytosis type: unspecified Qualified Codes: D72.829 - Elevated white blood cell count, unspecified Additional Impressions: Nausea & vomiting Vomiting type: unspecified Vomiting Intractability: unspecified Qualified Codes: R11.2 - Nausea with vomiting, unspecified Abdominal pain Abdominal location: unspecified location Qualified Codes: R10.9 - Unspecified abdominal pain LAURA SANDERS PA-C February 08, 2018 16:15
[2018-02-08 16:39] LABS: PLATELET COUNT, AUTOMATED 230 K/uL (150-450)
[2018-02-08] MEDS ORDERED: KCL (*) 20 MEQ/100 ML PREMIX 100 ML IV ONE (16:50)
--- NOTE | 2018-02-08 16:52 | RADIOLOGY IMAGING REPORT ---
FACILITY: [facility] PATIENT NAME: Nikhil Orozco : 1960 MR: [id number] V: [id number] EXAM DATE: ORDERING PHYSICIAN: LAURA SANDERS TECHNOLOGIST: Location: [facility] [place] Patient: Nikhil Orozco : 1960 Visit/Account:[id number] Date of Sevice: 02/08/2018 Abdominal series with single view of the chest: 02/08/2018 4:17 PM HISTORY: Abdominal pain. Vomiting. Constipation. COMPARISON: Abdomen pelvis CT on 02/04/2015. Chest x-ray on 02/02/2018. FINDINGS: Some stool seen within the colon. Bowel gas pattern is nonobstructed and nondilated. Abdom inal soft tissues are grossly normal without suspicious lucencies or abnormal calcifications. No acut e bony abnormality. Lungs show no consolidation, pleural effusion or pneumothorax. No discrete nodule. Cardiomediastinal silhouette and pulmonary vessels within normal limits. No acute bony abnormality. IMPRESSION: 1. Unremarkable exam of the abdomen. 2. No acute cardiopulmonary process. Report Dictated By: Marco A Josue at 02/08/2018 4:45 PM Report E-Signed By: Marco A Josue at 02/08/2018 4:48 PM WSN:[id number]
[2018-02-08 17:12] LABS: INR 1.05
--- NOTE | 2018-02-08 18:20 | RADIOLOGY IMAGING REPORT ---
FACILITY: [facility] [place] PATIENT NAME: Nikhil Orozco : 1960 MR: [id number] V: [id number] EXAM DATE: ORDERING PHYSICIAN: LAURA SANDERS TECHNOLOGIST: Location: [facility] [place] Patient: Nikhil Orozco : 1960 Visit/Account:[id number] Date of Sevice: 02/08/2018 INDICATION: elevated bilirubin, leukocytosis. DATE: 02/08/2018 6:12 PM. TECHNIQUE: Abdominal ultrasound was performed with attention to the right upper quadrant. COMPARISON: CT abdomen and pelvis of February 04, 2018 FINDINGS: Much of the pancreas is obscured. The right lobe of the liver measures 15 cm. No ascites. Normal echogenicity. The right kidney measures 11.7 x 5.5 x 6.2 cm. Normal cortical thickness and echogenicity. No hydrone phrosis. The left kidney was not imaged. The gallbladder wall measures 3-4 mm in thickness. There is sludge in gallbladder. Some posterior sha dowing may reflect small calculi. No pericholecystic fluid. The salesperson burial needs reports a positive sonogr aphic Kern's sign. The common bile duct measures 2 mm. The aorta and IVC are patent within the imaged region. IMPRESSION: 1. There is gallbladder sludge, small stones are suggested, and the salesperson burial needs reports a positive so nographic Kern's sign. Report Dictated By: Rina Abdi MD at 02/08/2018 6:12 PM Report E-Signed By: Rina Abdi MD at 02/08/2018 6:17 PM WSN:[id number]
[2018-02-08] MEDS ORDERED: LISI-362 PO (18:22)
[2018-02-08] MEDS ORDERED: IOPAMIDOL 76% 75 ML INFUS BTL 75 ML ONE (18:27)
--- NOTE | 2018-02-08 19:20 | RADIOLOGY IMAGING REPORT ---
FACILITY: [facility] [place] PATIENT NAME: Nikhil Orozco : 1960 MR: [id number] V: [id number] EXAM DATE: ORDERING PHYSICIAN: LAURA SANDERS TECHNOLOGIST: Location: [facility] Patient: Nikhil Orozco : 1960 Visit/Account:[id number] Date of Sevice: 02/08/2018 EXAMINATION: CT abdomen with IV contrast CT pelvis with IV contrast History: Abdominal pain, leukocytosis. TECHNIQUE: Spiral scan was through the abdomen and pelvis during injection of nonionic iodinated in travenous contrast. One of the following dose optimization techniques was utilized in the performance of this exam: Automated exposure control; adjustment of the mA and/or kV according to the patient's size; or use of an iterative reconstruction technique. Specific details can be referenced in the [facility]'s radiology CT exam operational policy. Contrast: 75 mL of IV Isovue-[id number]. COMPARISON STUDIES: none. FINDINGS: Lower chest: negative Liver / biliary: negative Pancreas: negative Spleen: negative Adrenal glands: negative Kidneys / retroperitoneum: negative Pelvic structures: negative Bowel / peritoneum / mesenteries: negative Vessels: Mild to moderate atherosclerosis. Musculoskeletal / Body wall: negative Lymph node assessment: negative IMPRESSION: No evidence of acute abdominal or pelvic pathology. Normal appendix identified. Report Dictated By: Tylor Andres MD at 02/08/2018 7:12 PM Report E-Signed By: Tylor Andres MD at 02/08/2018 7:17 PM WSN:[email or web address]
[2018-02-08 19:58] VITALS: BP 131/82
[2018-02-08 20:01] VITALS: BP 131/82
[2018-02-08] MEDS ORDERED: KCL 2 MEQ/ML 20 MEQ/10 ML VIAL 20 MEQ in NS(*) 0.9% 1000 ML BAG 1,000 ML IV PRN (20:15)
--- NOTE | 2018-02-08 20:42 | History & Physical ---
History of Present Illness Chief Complaint Nausea and vomiting History of Present Illness 57yo male with PMHx significant for recently diagnosed DM (possibly type 1). He reports onset of nausea with frequent vomiting approximately one week ago. He has had some associated right-sided abdominal pain. No radiation of the pain. The symptoms seem to worsen after eating solid foods. He has tolerate dthe liquids much better and stated he has kept "probably 80%" of the fluids down. He has had periodic feverish and chilled sensations. No blood in vomitus. He denies any diarrhea. He reports one stool more than a week ago with a small amount of blood. He has been evaluated in the ER on three occasions. Repeat CT scan today was unremarkable. His WBC count is modestly elevated. Lipase is normal. His Na+ and K+ levels are low. His UA was unremarkable. His CXR was unremarkable as well. He was recommended for admission. History Problems: (1) GERD (gastroesophageal reflux disease) Status: Chronic (2) Type I diabetes mellitus Status: Chronic (3) Hyperbilirubinemia Status: Chronic Home Meds Active Scripts Ondansetron (ZOFRAN ODT) 4 Mg Tab.rapdis, 4 MG PO Q6H Y for NAUSEA/VOMITING, # 20 TAB.FRANCESCA 0 Refills Prov:JACI CORREIA MD 02/04/18 Ondansetron Hcl (ZOFRAN) 4 Mg Tablet, 4 MG PO Q6H Y for NAUSEA/VOMITING, #10 Prov:KATLIN ARORA DO 02/02/18 Insulin Lispro 100 Un/Ml Pen (HUMALOG 3 ML PEN) 100 Unit/1 Ml Insuln.pen, 4 UNIT SQ TIDAC, #3 ML 1 Refill Prov:LALI PRATER DO 11/21/17 Insulin Glargine 100 Un/Ml Pen (LANTUS SOLOSTAR PEN) 100 Unit/1 Ml Insuln.pen, 30 UNIT SUBQ DAILY, #3 ML 1 Refill Prov:LALI PRATER DO 11/21/17 Reported Medications Lisinopril (LISINOPRIL) 10 Mg Tablet, 10 MG PO QDAY, TAB 02/08/18 Allergies: Coded Allergies: No Known Drug Allergies (Unverified , 02/04/18) Patient History: FH: CAD (coronary artery disease) FATHER FH: COPD (chronic obstructive pulmonary disease) FATHER FH: HTN (hypertension) FATHER FH: dementia FATHER FH: pulmonary embolism FATHER Stroke or transient ischemic attack in father FATHER Vascular disease MOTHER Hx Smoking: Yes Smoking Status: Smoker: Status Unknown Hx Alcohol Use: Yes Hx Substance Use Disorder: Yes (Cocaine. Stopped 13 years ago.) Social Drug Use: Currently Social Drugs: Marijuana (usually on a daily basis (none for past several days)) Review of Systems Constitutional: Fever, Chills Neurological: No Syncope, No Confusion, No Weakness Eyes: No Vision Change, No Loss of Vision ENT: No Hearing Loss Cardiovascular: No Chest Pain, No Palpitations Respiratory: No Shortness of Breath, No Cough Gastrointestinal: Nausea, Vomiting, No Diarrhea, No Dysphagia, No Hematemesis, No Melena, Abdominal Pain Genitourinary: No Dysuria, No Hematuria, No Urinary Incontinence Musculoskeletal: No Pain, No Impaired Mobility Psychiatric: No Depression Exam Vital Signs Vital Signs Date Time Temp Pulse Resp B/P (MAP) Pulse Ox O2 Delivery O2 Flow Rate FiO2 02/08/18 20:11 96 02/08/18 20:01 98.3 75 16 131/82 (98) Room Air General Appearance: Alert, Awake Neuro: No Gross deficits Eyes: PERRLA ENT: Oropharynx Clear Neck: No Masses Cardiovascular: Regular Rate and Rhythm, No Edema, No JVD Respiratory: Clear to Auscultation Chest: No Tenderness GI: Other (Soft/BS present/minimal tenderness reported over right upper and lower quadrants) : No CVA Tenderness Lymph: No Adenopathy Extremities: Warm, Perfused Integumentary: Skin Intact without Lesion / Mass Psych: Alert & Oriented X3 Medical Decision Making Data Points Result Diagram: 02/08/18 1625 02/08/18 1625 Item Value Date Time Serum Alcohol < 10 mg/dl 02/08/18 1631 Urine Color Yellow 02/08/18 1600 Urine Clarity Clear 02/08/18 1600 Urine pH 5.0 pH 02/08/18 1600 Urine Specific [place] 1.018 02/08/18 1600 Urine Protein Negative mg/dL 02/08/18 1600 Urine Glucose (UA) Negative mg/dL 02/08/18 1600 Urine Ketones Negative mg/dL 02/08/18 1600 Urine Blood Negative 02/08/18 1600 Urine Nitrite Negative 02/08/18 1600 Urine Bilirubin Negative 02/08/18 1600 Urine Urobilinogen Negative mg/dL 02/08/18 1600 Urine Leukocyte Esterase Negative 02/08/18 1600 Urine RBC <1 /HPF 02/08/18 1600 Urine WBC 1 /HPF 02/08/18 1600 Urine Squamous Epithelial Cells None /LPF 02/08/18 1600 Urine Hyaline Casts Few /LPF 02/08/18 1600 Urine Bacteria Negative /HPF 02/08/18 1600 Urine Mucus None /HPF 02/08/18 1600 Lipase 11 U/L L 02/08/18 1625 Albumin 4.2 g/dl 02/08/18 1625 Total Protein 7.6 gm/dl 02/08/18 1625 Alkaline Phosphatase 93 U/L 02/08/18 1625 Alanine Aminotransferase (ALT/SGPT) 25 U/L 02/08/18 1625 Aspartate Amino Transf (AST/SGOT) 26 U/L 02/08/18 1625 Total Bilirubin 5.0 mg/dl H 02/08/18 1625 Calcium Level 9.6 mg/dl 02/08/18 1625 Lactate 1.6 mmol/L 02/08/18 1757 Activated Partial Thromboplast Time 27 seconds 02/08/18 1625 Prothromb Time International Ratio 1.05 02/08/18 1625 Prothrombin Time 13.8 seconds 02/08/18 1625 EKG / Imaging Imaging PATIENT NAME: Nikhil Orozco : 1960 MR: [id number] V: [id number] EXAM DATE: ORDERING PHYSICIAN: LAURA SANDERS TECHNOLOGIST: Location: [facility] Patient: Nikhil Orozco : 1960 Visit/Account:[id number] Date of Sevice: 02/08/2018 EXAMINATION: CT abdomen with IV contrast CT pelvis with IV contrast History: Abdominal pain, leukocytosis. TECHNIQUE: Spiral scan was through the abdomen and pelvis during injection of nonionic iodinated intravenous contrast. One of the following dose optimization techniques was utilized in the performance of this exam: Automated exposure control; adjustment of the mA and/or kV according to the patient's size; or use of an iterative reconstruction technique. Specific details can be referenced in the facility's radiology CT exam operational policy. Contrast: 75 mL of IV [id number]. COMPARISON STUDIES: none. FINDINGS: Lower chest: negative Liver / biliary: negative Pancreas: negative Spleen: negative Adrenal glands: negative Kidneys / retroperitoneum: negative Pelvic structures: negative Bowel / peritoneum / mesenteries: negative Vessels: Mild to moderate atherosclerosis. Musculoskeletal / Body wall: negative Lymph node assessment: negative IMPRESSION: No evidence of acute abdominal or pelvic pathology. Normal appendix identified. Report Dictated By: Tylor Andres MD at 02/08/2018 7:12 PM Report E-Signed By: Tylor Andres MD at 02/08/2018 7:17 PM [id number] PATIENT NAME: Nikhil Orozco : 1960 MR: [id number] V: [id number] EXAM DATE: ORDERING PHYSICIAN: LAURA SANDERS TECHNOLOGIST: Location: [facility] Patient: Nikhil Orozco : 1960 Visit/Account:[id number] Date of Sevice: 02/08/2018 INDICATION: elevated bilirubin, leukocytosis. DATE: 02/08/2018 6:12 PM. TECHNIQUE: Abdominal ultrasound was performed with attention to the right upper quadrant. COMPARISON: CT abdomen and pelvis of February 04, 2018 FINDINGS: Much of the pancreas is obscured. The right lobe of the liver measures 15 cm. No ascites. Normal echogenicity. The right kidney measures 11.7 x 5.5 x 6.2 cm. Normal cortical thickness and echogenicity. No hydronephrosis. The left kidney was not imaged. The gallbladder wall measures 3-4 mm in thickness. There is sludge in gallbladder. Some posterior shadowing may reflect small calculi. No pericholecystic fluid. The cream cheese maker reports a positive sonographic Kern's sign. The common bile duct measures 2 mm. The aorta and IVC are patent within the imaged region. IMPRESSION: 1. There is gallbladder sludge, small stones are suggested, and the cream cheese maker reports a positive sonographic Kern's sign. Report Dictated By: Rina Abdi MD at 02/08/2018 6:12 PM Report E-Signed By: Rina Abdi MD at 02/08/2018 6:17 PM [id number] PATIENT NAME: Nikhil Orozco : 1960 MR: [id number] V: [id number] EXAM DATE: [id number] ORDERING PHYSICIAN: LAURA SANDERS TECHNOLOGIST: Location: [facility] Patient: Nikhil Orozco : 1960 Visit/Account:[id number] Date of Sevice: 02/08/2018 Abdominal series with single view of the chest: 02/08/2018 4:17 PM HISTORY: Abdominal pain. Vomiting. Constipation. COMPARISON: Abdomen pelvis CT on 02/04/2015. Chest x-ray on 02/02/2018. FINDINGS: Some stool seen within the colon. Bowel gas pattern is nonobstructed and nondilated. Abdominal soft tissues are grossly normal without suspicious lucencies or abnormal calcifications. No acute bony abnormality. Lungs show no consolidation, pleural effusion or pneumothorax. No discrete nodule. Cardiomediastinal silhouette and pulmonary vessels within normal limits. No acute bony abnormality. IMPRESSION: 1. Unremarkable exam of the abdomen. 2. No acute cardiopulmonary process. Report Dictated By: Macro A Josue at 02/08/2018 4:45 PM Report E-Signed By: Marco A Josue at 02/08/2018 4:48 PM [id number] Assessment and Plan Problems: (1) Nausea & vomiting Status: Acute Assessment & Plan: No obvious cause at this point. Question if he has an acute infectious etiology vs. possible gastroparesis vs. marijuana related cyclical vomiting vs. other cause. Will admit for further evaluation and treatment. Will give generous IV fluids. Replace electrolytes. Will try to control nausea. Watch closely. (2) Hyponatremia Status: Acute Assessment & Plan: Most likely due to vomiting. Will give IV fluids. Watch labs. (3) Hypokalemia Status: Acute Assessment & Plan: Due to vomiting. Replace with IV fluids. Watch labs. (4) Type I diabetes mellitus Status: Chronic Assessment & Plan: Will watch glucoses. Use SSI. We will resume his long acting insulin once he is eating better. Venous Thromboembolism Antithrombotics Is Pt On Any Antithrombotics?: No (ISELA hose and ambulation) Exam Sepsis Risk: No Definite Risk Problem Qualifiers (1) Nausea & vomiting: Vomiting type: unspecified Vomiting Intractability: unspecified Qualified Codes: R11.2 - Nausea with vomiting, unspecified JOHN REBOLLEDO MD February 08, 2018 20:42
[2018-02-08] MEDS: PROMETHAZINE 25 MG/ML 1 ML AMP IVP PRN (21:03)
[2018-02-08] MEDS: PANTOPRAZOLE SOD 40 MG IV VIAL IVP SCH (21:03)
[2018-02-08] MEDS: KCL/NS* 20 MEQ/1000 ML PREMIX 1,000 ML IV SCH (21:04)
[2018-02-09 03:43] VITALS: BP 116/81
[2018-02-09 06:15] LABS: PLATELET COUNT, AUTOMATED 190 K/uL (150-450)
[2018-02-09 07:38] VITALS: BP 149/97
[2018-02-09] MEDS ORDERED: ASPI81TA94 PO (07:56)
[2018-02-09] MEDS ORDERED: INSU100V24 SUBQ (07:56)
[2018-02-09] MEDS ORDERED: LANI SUBQ (07:59)
[2018-02-09] MEDS: PANTOPRAZOLE SOD 40 MG IV VIAL IVP SCH ×2 (09:52→20:08)
[2018-02-09] MEDS: KCL (*) 20 MEQ/100 ML PREMIX 100 ML IV SCH ×2 (09:55→12:10)
--- NOTE | 2018-02-09 11:21 | Hospitalist Progress Note ---
Subjective Progress Notes Subjective This patient was admitted for nausea and vomiting. He had no acute events overnight. Patient Complains of: Cardiovascular: No: Chest Pain Respiratory: No: Shortness of Breath Gastrointestinal: Nausea Physical Exam Vital Signs Date Time Temp Pulse Resp B/P (MAP) Pulse Ox O2 Delivery O2 Flow Rate FiO2 02/09/18 10:38 94 02/09/18 10:35 75 02/09/18 07:48 Room Air 02/09/18 07:38 98.6 12 149/97 (114) Cardiovascular: Regular Rate and Rhythm Respiratory: Clear to Auscultation GI: Other (Tender in right upper quadrant.) Extremities: Edema Integumentary: Jaundice Result Diagram: 02/09/18 0533 02/09/18 0533 Item Value Date Time Total Bilirubin 3.9 mg/dl H 02/09/18 0533 Total Bilirubin 5.0 mg/dl H 02/08/[address] abdomen and gall bladder ultrasound reviewed. Assessment and Plan Problems: (1) Nausea & vomiting Status: Acute Assessment & Plan: He did present with nausea and vomiting. This has improved with symptomatic treatment and he is tolerating clear liquids. (2) Cholelithiasis Assessment & Plan: He did present with right upper quadrant pain and his nausea does appear to be associated with food. His ultrasound showed stones and sludge, but no edema. I did speak with Dr. Lucero, who recommended an MRCP. Dr Lucero will evaluate him after the test. We will get him started on ceftriaxone since he does have an elevated WBC and reported chills prior to admission. (3) Hyponatremia Status: Acute Assessment & Plan: He is receiving IV fluids. A repeat chemistry is ordered for the morning. (4) Hypokalemia Status: Acute Assessment & Plan: He does have potassium in his maintenance fluids and we also administered a K-ridder to day. A repeat level is ordered for the morning. (5) Type I diabetes mellitus Status: Chronic Assessment & Plan: He is on chronic treatment with Lantus and Humalog. The Lantus is currently on hold and we do have him on sliding scale level #2. Exam Sepsis Risk: No Definite Risk Problem Qualifiers (1) Nausea & vomiting: Vomiting type: unspecified Vomiting Intractability: unspecified Qualified Codes: R11.2 - Nausea with vomiting, unspecified LALI PRATER DO February 09, 2018 11:21
[2018-02-09 11:26] VITALS: BMI 26.6
[2018-02-09 11:59] VITALS: BP 118/27
[2018-02-09] MEDS ORDERED: cefTRIAXone 2 GM VIAL IVP SCH (12:00)
[2018-02-09] MEDS: INSULIN HUM LISPRO 100 UN/ML 3 ML VIAL SUBQ PRN ×2 (12:16→17:27)
[2018-02-09] MEDS: PROMETHAZINE 25 MG/ML 1 ML AMP IVP PRN ×2 (13:28→18:22)
[2018-02-09] MEDS ORDERED: NS 0.9% 20 ML SDV 40 ML ONE (13:29)
[2018-02-09] MEDS ORDERED: GADOBENATE 529MG/1ML 15ML VIAL IVP ONE (13:29)
--- NOTE | 2018-02-09 16:57 | RADIOLOGY IMAGING REPORT ---
FACILITY: [facility] PATIENT NAME: Nikhil Orozco : 1960 MR: [id number] V: [id number] EXAM DATE: ORDERING PHYSICIAN: LALI PRATER TECHNOLOGIST: Location: Patient: Nikhil Orozco : 1960 Visit/Account:[id number] Date of Sevice: 02/09/2018 MRI CHOLANGIOPANCREAT W/WO CON HISTORY: Gallstones TECHNIQUE: Multiplanar multisequence magnetic resonance imaging of the abdomen without and with intr avenous contrast. Magnetic resonance cholangiopancreatography (MRCP) was also performed. CONTRAST: 15 mL MultiHance IV COMPARISON: CT 02/08/2018, ultrasound 02/08/2018 FINDINGS: Visualized lung bases: Negative. Liver: Within normal limits for size and morphology. No MR evident steatosis or discrete hepatic le chata. Gallbladder: Prominent but not frankly hydropic, 4.2 cm maximum diameter. Very small volume sludge b ut no MR evident discrete stone. Bile ducts: Nondistended and grossly unremarkable; common duct 3-4 mm maximum diameter. Spleen: Within normal limits for size and morphology. Adrenals: Negative. Pancreas: Mildly atrophic. Otherwise unremarkable without parenchymal edema, surrounding inflammati on or free fluid to suggest pancreatitis. Kidneys/: Negative. Visualized GI: Nondistended. Vessels/spaces/nodes: Common and aortic origin splenic and common hepatic arteries, normal variant. Aortoiliac atherosclerosis. No bulky adenopathy. No ascites. Bones/soft tissues: Disc degenerative changes right L4-L5 and superior endplate L2. IMPRESSION: Small volume gallbladder sludge without MR evident discrete stone, findings to suggest acute cholecys titis or ongoing biliary obstruction. Report Dictated By: Matt Mcmahon MD at 02/09/2018 4:43 PM Report E-Signed By: Matt Mcmahon MD at 02/09/2018 4:52 PM WSN:[id number]
[2018-02-09 17:15] VITALS: BP 116/73
--- NOTE | 2018-02-09 19:42 | General Surgery Consultation ---
History of Present Illness Requesting Physician Dr. Corona, hospitalist service Reason for Consult Gallbladder Chief Complaint Abdominal pain with nausea and vomiting History of Present Illness 57-year-old gentleman, otherwise healthy, presents with a one-week history of abdominal pain in the right upper quadrant and nausea and vomiting. He's never had these symptoms prior to a week ago. Eating makes his symptoms worse including both the right upper quadrant pain and the nausea. He was evaluated by his PCM at the [facility] and she sent him to the emergency room for further evaluation. On admission, his total bilirubin was 5 but this is come down to 3.9 this morning. He denies any history of jaundice, scleral icterus, choleuria, or stearrhea. He has not had any subjective fevers or chills. He has had constipation and his 1st bowel movement in 5 days was earlier today. He had also noticed decreased urine output but this has picked up today since admission. Right upper quadrant ultrasound revealed sludge with the possibility of small stones but no obvious gallbladder wall thickening, pericholecystic fluid, or common bile duct dilatation. In fact, his vital duct was measured at [address] scan of his abdomen and pelvis was unremarkable. An MRCP was obtained due to the elevated bilirubin other than gallbladder sludge, this was unremarkable. They did not really appreciate any inflammation in the gallbladder. They did not see any common bile duct process or obstruction on MRCP. I have been counseled didn't since he has right upper quadrant pain with gallbladder sludge and worsening of his symptoms postprandially with no other etiology to explain his symptoms. He has had no abdominal surgeries. History Problems: (1) Hyperbilirubinemia Status: Chronic (2) Type I diabetes mellitus Status: Chronic (3) GERD (gastroesophageal reflux disease) Status: Chronic (4) FH: dementia (5) FH: pulmonary embolism (6) FH: CAD (coronary artery disease) Home Meds Active Scripts Ondansetron Hcl (ZOFRAN) 4 Mg Tablet, 4 MG PO Q6H Y for NAUSEA/VOMITING, #10 Prov:KATLIN ARORA DO 02/02/18 Reported Medications Insulin Glargine (LANTUS) 100 Unit/Ml Soln, 26 UNITS SUBQ DAILY 02/09/18 Insulin Lispro 100 Un/Ml Vial (HUMALOG 100 U/ML VIAL) 100 Unit/1 Ml Vial, 4 UNITS SUBQ ACHS 02/09/18 Aspirin (ASPIRIN) 81 Mg Tab.chew, 81 MG PO QDAY, TAB.CHEW 02/09/18 Lisinopril (LISINOPRIL) 10 Mg Tablet, 10 MG PO QDAY, TAB 02/08/18 Discontinued Scripts Ondansetron (ZOFRAN ODT) 4 Mg Tab.rapdis, 4 MG PO Q6H Y for NAUSEA/VOMITING, # 20 TAB.FRANCESCA 0 Refills Prov:JACI CORREIA MD 02/04/18 Insulin Lispro 100 Un/Ml Pen (HUMALOG 3 ML PEN) 100 Unit/1 Ml Insuln.pen, 4 UNIT SQ TIDAC, #3 ML 1 Refill Prov:LALI CORONA DO 11/21/17 Insulin Glargine 100 Un/Ml Pen (LANTUS SOLOSTAR PEN) 100 Unit/1 Ml Insuln.pen, 30 UNIT SUBQ DAILY, #3 ML 1 Refill Prov:LALI CORONA DO 11/21/17 Allergies: Coded Allergies: No Known Drug Allergies (Unverified , 02/04/18) Family History: FH: CAD (coronary artery disease) FATHER FH: COPD (chronic obstructive pulmonary disease) FATHER FH: HTN (hypertension) FATHER FH: dementia FATHER FH: pulmonary embolism FATHER Stroke or transient ischemic attack in father FATHER Vascular disease MOTHER Review of Systems All Systems Reviewed/Normal: Yes, Except as Noted Gastrointestinal: Nausea, Vomiting, Constipation, Abdominal Pain Exam Vital Signs Vital Signs Date Time Temp Pulse Resp B/P (MAP) Pulse Ox O2 Delivery O2 Flow Rate FiO2 02/09/18 17:15 98.7 84 14 116/73 (87) 97 Room Air General Appearance: Alert, Awake, No Acute Distress, Afebrile Neuro: No Gross deficits Eyes: PERRLA Cardiovascular: Regular Rate and Rhythm Respiratory: Clear to Auscultation GI: Other (soft, right upper quadrant tenderness to palpation, no Kern sign.) Extremities: Warm, Perfused Medical Decision Making Data Points Result Diagram: 02/09/1853202/09/18532 Assessment and Plan Problems: (1) Symptomatic cholelithiasis Status: Acute Assessment & Plan: 02/09/18: This patient's symptoms are very consistent with a symptomatic gallbladder. I have reviewed all of his studies and no other etiology is revealed to explain his symptoms. I have discussed proceeding with cholecystectomy and he is interested in proceeding with this. I make him nothing by mouth and add him onto the schedule for tomorrow. Dr. Keenan is coming on tomorrow and I will discuss this patient with him as he will be the one performing the surgery. I will introduce Dr. Keenan to the patient as well. I have explained the surgery to him in great detail as well as the alternatives, risks, and expected recovery. He seems to understand this discussion and his questions have been answered. He would like to proceed with cholecystectomy. (2) Hyperbilirubinemia Status: Chronic Assessment & Plan: He has had an elevated total bilirubin to 1 degree or another for several months. MRCP did not reveal any biliary issues. (3) Type I diabetes mellitus Status: Chronic Assessment & Plan: He is on chronic treatment with Lantus and Humalog. The Lantus is currently on hold and we do have him on sliding scale level #2. Condition Stable Time Spent: < 30 min Venous Thromboembolism Antithrombotics Is Pt On Any Antithrombotics?: No (ISELA hose and ambulation) Problem Qualifiers (1) Type I diabetes mellitus: Diabetes mellitus complication status: with unspecified complications Qualified Codes: E10.8 - Type 1 diabetes mellitus with unspecified complications LALI SMITH MD February 09, 2018 19:42
[2018-02-09] MEDS: KCL/NS* 20 MEQ/1000 ML PREMIX 1,000 ML IV SCH (20:08)
[2018-02-09 22:39] VITALS: BP 122/62
[2018-02-10] VITALS (16 sets, daily range): BP systolic 113–142; BP diastolic 69–85; Ht 175.3 cm; Wt 81.8 kg
[2018-02-10] MEDS ORDERED: NORMOSOL R SOLN(*) 1000 ML BAG 1,000 ML IV ONE (05:27)
[2018-02-10 05:58] LABS: PLATELET COUNT, AUTOMATED 177 K/uL (150-450)
--- NOTE | 2018-02-10 08:01 | General Surgery Progress Note ---
Subjective Progress Notes Subjective Feeling a bit better, but still with RUQ pain, though nausea is improved. 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 Assessment and Plan Problems: (1) Symptomatic cholelithiasis Status: Acute Assessment & Plan: 02/09/18: This patient's symptoms are very consistent with a symptomatic gallbladder. I have reviewed all of his studies and no other etiology is revealed to explain his symptoms. I have discussed proceeding with cholecystectomy and he is interested in proceeding with this. I make him nothing by mouth and add him onto the schedule for tomorrow. Dr. Barr is coming on tomorrow and I will discuss this patient with him as he will be the one performing the surgery. I will introduce Dr. Barr to the patient as well. I have explained the surgery to him in great detail as well as the alternatives, risks, and expected recovery. He seems to understand this discussion and his questions have been answered. He would like to proceed with cholecystectomy. 02/10/18: I have met and examined the patient. I discussed the planned treatment option of laparoscopic cholecystectomy and IOC. I reviewed the risks and possible complications of surgery with him. He has had all his questions answered and wishes to proceed with surgery. Informed consent obtained. Will replace potassium for K+ of 3.1 today. (2) Hyperbilirubinemia Status: Chronic Assessment & Plan: He has had an elevated total bilirubin to 1 degree or another for several months. MRCP did not reveal any biliary issues. 02/10/2018: I will plan of performing and IOC to assure duct is clear at the time of laparoscopic cholecystectomy. (3) Type I diabetes mellitus Status: Chronic Assessment & Plan: He is on chronic treatment with Lantus and Humalog. The Lantus is currently on hold and we do have him on sliding scale level #2. 02/10/2018: RX per hospitalist service. Exam Sepsis Risk: No Definite Risk Problem Qualifiers (1) Type I diabetes mellitus: Diabetes mellitus complication status: with unspecified complications Qualified Codes: E10.8 - Type 1 diabetes mellitus with unspecified complications MARCELA BARR MD February 10, 2018 08:01
[2018-02-10] MEDS ORDERED: KCL 2 MEQ/ML 20 MEQ/10 ML VIAL 40 MEQ in NS(*) 0.9% 1000 ML BAG 1,000 ML IV SCH (09:00)
[2018-02-10] MEDS: PANTOPRAZOLE SOD 40 MG IV VIAL IVP SCH ×2 (10:03→20:51)
--- NOTE | 2018-02-10 10:51 | Hospitalist Progress Note ---
Subjective Progress Notes Subjective He denies cp/sob. Physical Exam Vital Signs Date Time Temp Pulse Resp B/P (MAP) Pulse Ox O2 Delivery O2 Flow Rate FiO2 02/10/18 08:00 96 Room Air 02/10/18 07:43 97.9 68 16 127/82 (97) Intake and Output 02/11/18 07:00 # Voids 1 General Appearance: Alert, Awake, No Acute Distress GI: Other (Soft. RUQ tenderness with palpation) Extremities: No Edema Result Diagram: 02/10/1852502/10/18525 Assessment and Plan Problems: (1) Cholelithiasis Assessment & Plan: He did present with right upper quadrant pain and his nausea does appear to be associated with food. His ultrasound showed stones and sludge, but no edema. MRCP had small volume GB sludge. He is to have a cholecystectomy today. On Rocephin. (2) Nausea & vomiting Status: Resolved Assessment & Plan: He did present with nausea and vomiting. This has improved with symptomatic treatment and he is tolerating clear liquid. (3) Hyponatremia Status: Acute Assessment & Plan: He is receiving IV fluids. A repeat chemistry is ordered for the morning. (4) Hypokalemia Status: Acute Assessment & Plan: He does have potassium in his maintenance fluids. A repeat level is ordered for the morning. (5) Type I diabetes mellitus Status: Chronic Assessment & Plan: He was diagnosed a couple months ago and does have a low C- Peptide. Will check transferrin saturation. He is on chronic treatment with Lantus and Humalog. The Lantus is currently on hold and we do have him on sliding scale level #2. Glucose 102-158. Exam Sepsis Risk: No Definite Risk Problem Qualifiers (1) Nausea & vomiting: Vomiting type: unspecified Vomiting Intractability: unspecified Qualified Codes: R11.2 - Nausea with vomiting, unspecified (2) Type I diabetes mellitus: Diabetes mellitus complication status: with unspecified complications Qualified Codes: E10.8 - Type 1 diabetes mellitus with unspecified complications CHINA LARKIN MD February 10, 2018 10:51
[2018-02-10] MEDS ORDERED: fentaNYL CITR 250 MCG/5 ML AMP ONE (11:28)
[2018-02-10] MEDS ORDERED: PROPOFOL EMUL(*) 10MG/ML 20 ML 20 ML ONE (11:37)
[2018-02-10] MEDS ORDERED: ONDANSETRON 4 MG/2 ML VIAL ONE (11:37)
[2018-02-10] MEDS ORDERED: LIDOCAINE MPF 1% 5 ML VIAL ONE (11:37)
[2018-02-10] MEDS ORDERED: ceFAZolin 1 GM VIAL ONE (11:45)
[2018-02-10] MEDS ORDERED: IOPAMIDOL 61% 75 ML INFUS BTL 75 ML ONE (12:00)
[2018-02-10] MEDS ORDERED: ROPIVACAINE 0.2% 20 ML VIAL ONE (12:00)
[2018-02-10] MEDS ORDERED: BUPIV/EPI 0.25% 1:200,000 50ML INFIL ONE (12:01)
[2018-02-10] MEDS ORDERED: MIDAZOLAM 2 MG/2 ML VIAL ONE (12:28)
[2018-02-10] MEDS ORDERED: FAMOTIDINE 20 MG TAB PO ONE (12:30)
[2018-02-10] MEDS ORDERED: HALOPERIDOL LACT 5 MG/ML VIAL IM ONE (12:45)
[2018-02-10] MEDS ORDERED: SUGAMMADEX SOD 200 MG/2 ML SDV ONE (12:51)
[2018-02-10] MEDS ORDERED: NS 0.9% IRRIGATION 1000ML PLCT IR ONE ×3 (13:12→13:43)
[2018-02-10] MEDS ORDERED: hydrALAZINE HCL 20 MG/ML VIAL ONE (13:38)
[2018-02-10] MEDS ORDERED: fentaNYL CITR 100 MCG/2 ML AMP ONE ×3 (13:38→14:14)
[2018-02-10] MEDS ORDERED: KETOROLAC 30 MG/ML VIAL ONE (13:53)
--- NOTE | 2018-02-10 14:12 | Post Operative Progress Note ---
Post Operative Progress Note Date: February 10, 2018 Surgeon: Shlomo Drier And Evaporator Operator: aircraft launch and recovery technician Anesthesia: General ET Pre-Op Diagnosis: Acute cholecystitis Post-Op Diagnosis: same Findings: Inflammed gallbladder with adherent omentum. Normal cholangiogram. Procedure(s): Laparoscopic cholecystectomy and intraoperative cholangiogram Specimen Removed:(May be N/A): Gallbladder Complications: none Estimated Blood Loss: <5 ml Date OP Note Dictated: February 10, 2018 MARCELA BARR MD February 10, 2018 14:12
[2018-02-10] MEDS ORDERED: HYDROmorphone HCL 2 MG/ML SDV ONE (14:15)
--- NOTE | 2018-02-10 14:30 | RADIOLOGY IMAGING REPORT ---
FACILITY: [facility] PATIENT NAME: Nikhil Orozco : 1960 MR: [id number] V: [id number] EXAM DATE: ORDERING PHYSICIAN: MARCELA BARR TECHNOLOGIST: Location: [facility] - [place] Patient: Nikhil Orozco : 1960 Visit/Account:[id number] Date of Sevice: 02/10/2018 Intraoperative cholangiogram: HISTORY: Cholecystitis. COMPARISON: None. FINDINGS: Fluoroscopy and imaging provided for Dr. Barr during upper scopic cholecystectomy. Contr ast has been injected via the cystic duct stump. Common bile duct is of normal caliber. There are no filling defects. 9.5 seconds of fluoroscopy time was utilized for a DAP of 0.061 mGym2 IMPRESSION: Fluoroscopy and imaging provided for Dr. Barr, please see his report for details. Report Dictated By: Miley Dodson MD at 02/10/2018 2:25 PM Report E-Signed By: Miley Dodson MD at 02/10/2018 2:26 PM WSN:[id number]
[2018-02-10] MEDS ORDERED: INSULIN HUM REG 100 UN/ML 3 ML VIAL SC ONE (14:50)
[2018-02-10] MEDS: INSULIN HUM LISPRO 100 UN/ML 3 ML VIAL SUBQ PRN ×2 (17:54→20:51)
--- NOTE | 2018-02-10 18:06 | OPERATIVE REPORT 1 ---
EVENT DATE: February 10, 2018 SURGEON: Matt Keenan MD ANESTHESIOLOGIST: Chris Graham MD ANESTHESIA: General endotracheal anesthesia. PRINTING ASSISTANT: pathology technologist administrative assistant receptionist. PREOPERATIVE DIAGNOSIS Acute cholecystitis. POSTOPERATIVE DIAGNOSIS Acute cholecystitis. PROCEDURE PERFORMED Laparoscopic cholecystectomy with intraoperative cholangiography. PROCEDURE IN DETAIL The patient was taken to the operating room and placed in the supine position. After induction of adequate general endotracheal anesthesia, the abdomen was then prepped and draped in the usual sterile fashion. A timeout was taken. The patient had received antibiotics prior to incision. Once this was completed , we then took our attention to the umbilicus where an incision was made at the infraumbilical fold. This was carried through the skin and subcutaneous tissue. The fascia was identified. The umbilicus was grasped with a penetrating towel clip and retracted superiorly. The fascia was then incised. Under direct visualization, the peritoneal cavity was entered. A figure-of- eight 0 Vicryl suture was then placed in the fascia. A 10/12 trocar was then introduced. A pneumoperitoneum was created. The laparoscope was introduced. Gentle exploration was remarkable for inflammatory mass in the right upper quadrant with the omentum adherent to the gallbladder. A 5 mm port was placed then in the upper midline half way between the xiphoid process and umbilicus. Two 5 mm ports were placed in the right upper quadrant. The patient was then put in a head-up position. The omentum was then carefully dissected free from the gallbladder with the Harmonic scalpel. Once this was done, the gallbladder was grasped and retracted anterosuperiorly. The remainder of the adherent omentum was dissected free from the infundibulum. The infundibulum was then identified and grasped. Using careful blunt dissection, the cystic duct and cystic artery were identified. The gallbladder was taken down from the liver bed in its lower portion to assure that we had a full critical view of safety. Once this was obtained, the cystic artery was doubly clipped and divided. The cystic duct was then identified. A 14-Slovak IV catheter was placed through a separate wound incision, and a Taut catheter was then inserted. A hemoclip was applied on the infundibular side of the cystic duct. The cystic duct was then opened. The catheter was inserted in the cystic duct and held in place with a hemoclip. Intraoperative cholangiography then showed free flow of dye into the duodenum. There were no filling defects or obvious strictures noted. The hemoclip and catheter were removed. The cystic duct was then doubly clipped and divided. Then using the Harmonic scalpel, the gallbladder was removed from the liver bed. Once it was detached, it was placed in an Endo Pouch and removed from the peritoneal cavity. This was submitted to Pathology for histologic evaluation. The entire right upper quadrant was irrigated with copious amounts of saline. Adequate hemostasis confirmed. The pneumoperitoneum was evacuated, and all ports were removed. The wounds were infiltrated with 0.25% Marcaine with epinephrine for postop pain control. The fascia of the umbilical port was closed with the 0 Vicryl sutures. The skin of all wounds was closed with simple running 4-0 Monocryl subcuticular suture for the umbilicus and interrupted 4-0 Monocryl subcuticular sutures for the 5 mm ports. Dermabond was applied to all incisions. The patient tolerated this well. Final sponge, instrument, and needle counts were correct times two. He was taken to the PACU in stable condition. ROBERTO
[2018-02-10] MEDS: KETOROLAC 30 MG/ML VIAL IVP SCH (19:47)
[2018-02-10] MEDS: APAP/HYDROCODONE 325/5 TAB PO PRN ×2 (19:54→23:56)
[2018-02-11] MEDS: KETOROLAC 30 MG/ML VIAL IVP SCH ×3 (01:10→13:28)
[2018-02-11] MEDS: APAP/HYDROCODONE 325/5 TAB PO PRN ×3 (04:04→13:06)
[2018-02-11 04:09] VITALS: BP 107/70
[2018-02-11 05:23] LABS: PLATELET COUNT, AUTOMATED 156 K/uL (150-450)
[2018-02-11] MEDS: PANTOPRAZOLE SOD 40 MG IV VIAL IVP SCH (08:44)
[2018-02-11] MEDS ORDERED: DOCUSATE SODIUM 100 MG CAP PO SCH (09:25)
[2018-02-11] MEDS ORDERED: POTASSIUM CHL 20 MEQ TABCR PO SCH (09:30)
--- NOTE | 2018-02-11 09:34 | General Surgery Progress Note ---
Subjective Progress Notes Subjective Feeling much better, tolerating clear liquids, denies nausea. Passing flatus. Physical Exam Vital Signs Date Time Temp Pulse Resp B/P (MAP) Pulse Ox O2 Delivery O2 Flow Rate FiO2 02/11/18 04:09 98.0 66 15 107/70 (82) 94 Room Air 02/10/18 16:00 2.0 General Appearance: Alert, Awake, No Acute Distress, Afebrile Neuro: No Gross deficits ENT: Moist Mucous Membranes Cardiovascular: Regular Rate and Rhythm Respiratory: No Respiratory Distress, Clear to Auscultation GI: Other (soft, expected incisional tenderness, BS present, incisions with Dermabond intact) Psych: Alert & Oriented X3, Appropriate Mood & Affect Result Diagram: 02/11/18 0517 02/11/18 0517 T Bili down to 2.0 Assessment and Plan Problems: (1) Symptomatic cholelithiasis Status: Acute Assessment & Plan: 02/09/18: This patient's symptoms are very consistent with a symptomatic gallbladder. I have reviewed all of his studies and no other etiology is revealed to explain his symptoms. I have discussed proceeding with cholecystectomy and he is interested in proceeding with this. I make him nothing by mouth and add him onto the schedule for tomorrow. Dr. Barr is coming on tomorrow and I will discuss this patient with him as he will be the one performing the surgery. I will introduce Dr. Barr to the patient as well. I have explained the surgery to him in great detail as well as the alternatives, risks, and expected recovery. He seems to understand this discussion and his questions have been answered. He would like to proceed with cholecystectomy. 02/10/18: I have met and examined the patient. I discussed the planned treatment option of laparoscopic cholecystectomy and IOC. I reviewed the risks and possible complications of surgery with him. He has had all his questions answered and wishes to proceed with surgery. Informed consent obtained. Will replace potassium for K+ of 3.1 today. 02/11/2018: POD #! s/p lap rosenda and IOC. Doing well. Feeling better. ADAT. Ambulate. Potassium still low, so will change to PO supplementation. Okay for DC home later today. Wound and aftercare instructions given. Patient will make an appointment to see PCP next week. He was asked to call Dr. Jake's office to make an appointment to be seen in the office the week of February 20 in follow up. (2) Hyperbilirubinemia Status: Chronic Assessment & Plan: He has had an elevated total bilirubin to 1 degree or another for several months. MRCP did not reveal any biliary issues. 02/10/2018: I will plan of performing and IOC to assure duct is clear at the time of laparoscopic cholecystectomy. 02/11/2018. T Bili down to 2.0. IOC normal. (3) Type I diabetes mellitus Status: Chronic Assessment & Plan: He is on chronic treatment with Lantus and Humalog. The Lantus is currently on hold and we do have him on sliding scale level #2. 02/10/2018: RX per hospitalist service. Exam Sepsis Risk: No Definite Risk Problem Qualifiers (1) Type I diabetes mellitus: Diabetes mellitus complication status: with unspecified complications Qualified Codes: E10.8 - Type 1 diabetes mellitus with unspecified complications MARCELA BARR MD February 11, 2018 09:33
[2018-02-11] MEDS ORDERED: LOR5/325 PO (10:02)
[2018-02-11] MEDS ORDERED: POTA20TA94 PO (10:07)
--- NOTE | 2018-02-11 10:07 | Hospitalist Depart ---
Discharge Summary Reason for Hosp/Final Diag: (1) Cholelithiasis Hospital Course & Plan: He did present with right upper quadrant pain. His ultrasound showed stones and sludge. He underwent cholecystectomy on 02/10. He will follow up with Dr. Smith in the clinic. (2) Nausea & vomiting Status: Resolved Hospital Course & Plan: Resolved. (3) Hyponatremia Status: Acute Hospital Course & Plan: Improved with IV fluids. (4) Hypokalemia Status: Acute Hospital Course & Plan: He will discharge on oral potassium. (5) Type I diabetes mellitus Status: Chronic Hospital Course & Plan: He was diagnosed a couple months ago and does have a low C-Peptide. He is on chronic treatment with Lantus and and Humalog. Departure Latest Vital Signs Vital Signs 02/10/18 02/11/18 16:00 04:09 Temp 98.0 Pulse 66 Resp 15 B/P (MAP) 107/70 (82) Pulse Ox 94 O2 Delivery Room Air O2 Flow Rate 2.0 Weight (Pounds): 180 Weight (Ounces): 6.0 Result Diagram: 02/11/18 0517 02/11/18 05 Condition: Improved Discharge: Home, Self Care Follow-Up Labs: Finger Sticks Discharge Instructions Home Meds Active Scripts Potassium Chloride (POTASSIUM CHLORIDE) 20 Meq Tab.er.prt, 20 MEQ PO BIDBS, #60 TAB Prov:LALI PRATER DO 02/11/18 Hydrocodone Bit/Acetaminophen (HYDROCODON-ACETAMINOPHEN 5-325) 1 Each Tablet, 1- 2 EACH PO Q4H Y for PAIN, #20 TAB Prov:LALI PRATER DO 02/11/18 Reported Medications Insulin Glargine (LANTUS) 100 Unit/Ml Soln, 26 UNITS SUBQ DAILY 02/09/18 Insulin Lispro 100 Un/Ml Vial (HUMALOG 100 U/ML VIAL) 100 Unit/1 Ml Vial, 4 UNITS SUBQ ACHS 02/09/18 Aspirin (ASPIRIN) 81 Mg Tab.chew, 81 MG PO QDAY, TAB.CHEW 02/09/18 Lisinopril (LISINOPRIL) 10 Mg Tablet, 10 MG PO QDAY, TAB 02/08/18 Discontinued Scripts Ondansetron Hcl (ZOFRAN) 4 Mg Tablet, 4 MG PO Q6H Y for NAUSEA/VOMITING, #10 Prov:KATLIN ARORA DO 02/02/18 Ondansetron (ZOFRAN ODT) 4 Mg Tab.rapdis, 4 MG PO Q6H Y for NAUSEA/VOMITING, # 20 TAB.FRANCESCA 0 Refills Prov:JACI CORREIA MD 02/04/18 Insulin Lispro 100 Un/Ml Pen (HUMALOG 3 ML PEN) 100 Unit/1 Ml Insuln.pen, 4 UNIT SQ TIDAC, #3 ML 1 Refill Prov:LALI PRATER DO 11/21/17 Insulin Glargine 100 Un/Ml Pen (LANTUS SOLOSTAR PEN) 100 Unit/1 Ml Insuln.pen, 30 UNIT SUBQ DAILY, #3 ML 1 Refill Prov:LALI PRATER DO 11/21/17 Diet: Diabetic Activity: As Tolerated Copies to: LALI SMITH MD Venous Thromboembolism Antithrombotics Is Pt On Any Antithrombotics?: No (ISELA hose and ambulation) Problem Qualifiers (1) Nausea & vomiting: Vomiting type: unspecified Vomiting Intractability: unspecified Qualified Codes: R11.2 - Nausea with vomiting, unspecified (2) Type I diabetes mellitus: Diabetes mellitus complication status: with unspecified complications Qualified Codes: E10.8 - Type 1 diabetes mellitus with unspecified complications LALI PRATER DO February 11, 2018 10:06
[2018-02-11 10:25] VITALS: BP 138/80
[2018-02-11] MEDS ORDERED: FAMOTIDINE 20 MG/50 ML PREMIX IVPB ONE (11:55)
[2018-02-11] MEDS: INSULIN HUM LISPRO 100 UN/ML 3 ML VIAL SUBQ PRN (12:01)
[2018-02-11] MEDS ORDERED: cefTRIAXone 2 GM VIAL IVP SCH (12:40)
== END 2018-02-11 10:02 | disposition home or self-care (01) ==
LOC: ER 15:58 → MED 19:43 → INTOOBSV 19:43
PROVIDERS: ADMIT Internal Medicine; ATTEND Internal Medicine
DX: K81.9 Cholecystitis, unspecified (principal); E80.6 Other disorders of bilirubin metabolism; D72.829 Elevated white blood cell count, unspecified; R11.2 Nausea with vomiting, unspecified; E87.1 Hypo-osmolality and hyponatremia; E87.6 Hypokalemia; E11.9 Type 2 diabetes mellitus without complications
CPT/HCPCS: 36415; 36416; 47563; 74022; 74177; 74183; 74300; 76705; 80320; 81001; 82728; 82948; 83540; 83550; 83605; 83690; 83735; 85025; 85610; 85730; 87040; 88304; 96372; 99285; A9577; C9113; G0378; J0360; J0690; J0696; J1170; J1630; J1815; J1885; J2001; J2250; J2405; J2550; J2704; J3010; J3480; J3490; J7030; J7050; Q9967; 82040; 82247; 82310; 82374; 82435; 82565; 82947; 84075; 84132; 84155; 84295; 84450; 84460; 84520; J2795

== ENCOUNTER 2018-03-23 11:29 | Emergency (ER) | payer SELFPAY ==
[2018-02-10 11:07] VITALS: Wt 81.8 kg
[~2018-03-23 11:29] MED LIST changes: +ASPI81TA94 PO; +INSU100V24 SUBQ; -LABETALOL HCL 100 MG/20ML VIAL ONE; +LANI SUBQ; +LISI-362 PO; +LOR5/325 PO; +POTA20TA94 PO; -ROCURONIUM BROM 10 MG/ML 10 ML ONE
--- NOTE | 2018-03-23 11:44 | ER Report ---
History and Physical Time Seen By MD: 11:38 Hx. of Stated Complaint: Patient with nausea and vomitting since Tuesday night HPI/ROS CHIEF COMPLAINT: Nausea and vomiting HISTORY OF PRESENT ILLNESS: This is a 57-year-old male who presents to the emergency department by himself for nausea or vomiting. Patient states that about 2-3 days ago he had some diarrhea and since then he's had no bowel movement he's also had nausea and vomiting intermittently. Patient denies blood in the stool or the emesis. Patient recently had gallbladder surgery, no complications during the surgery. Patient also states he's had intermittent urinary dribbling. Patient has no other complaints, no aches or chills, no chest pain or shortness of breath. No headaches or rashes. REVIEW OF SYSTEMS: Constitutional: No fever, no chills. Eyes: No discharge. ENT: No sore throat. Cardiovascular: No chest pain, no palpitations. Respiratory: No cough, no shortness of breath. Gastrointestinal: As above. Genitourinary: No hematuria. Musculoskeletal: No back pain. Skin: No rashes. Neurological: No headache. Allergies: Coded Allergies: No Known Drug Allergies (Unverified , 03/23/18) Home Meds Active Scripts Ondansetron (ZOFRAN ODT) 4 Mg Tab.rapdis, 4 MG PO Q6H Y for NAUSEA/VOMITING, # 20 TAB.FRANCESCA 0 Refills Prov:RAISSA CORREA PRIVATE HOUSEHOLD WORKER-BC 03/23/18 Potassium Chloride (POTASSIUM CHLORIDE) 20 Meq Tab.er.prt, 20 MEQ PO BIDBS, #60 TAB Prov:LALI PRATER DO 02/11/18 Reported Medications Insulin Glargine (LANTUS) 100 Unit/Ml Soln, 26 UNITS SUBQ DAILY 02/09/18 Insulin Lispro 100 Un/Ml Vial (HUMALOG 100 U/ML VIAL) 100 Unit/1 Ml Vial, 4 UNITS SUBQ ACHS 02/09/18 Aspirin (ASPIRIN) 81 Mg Tab.chew, 81 MG PO QDAY, TAB.CHEW 02/09/18 Lisinopril (LISINOPRIL) 10 Mg Tablet, 10 MG PO QDAY, TAB 02/08/18 Past Medical/Surgical History The patient has a past medical and surgical history of GERD, diabetes, history of cocaine use, cholecystectomy. Reviewed Nurses Notes: Yes Hx Smoking: Yes Smoking Status: Never Smoker Hx Substance Use Disorder: Yes (Cocaine. Stopped 13 years ago.) Hx Alcohol Use: Yes Constitutional Vital Sign - Last 24 Hours 03/23/18 11:34 Temp 98.1 Pulse 85 Resp 16 B/P (MAP) 161/92 Pulse Ox 100 O2 Delivery Room Air Physical Exam General Appearance: The patient is alert, has no immediate need for airway protection and no signs of toxicity. Eyes: Pupils equal and round no pallor or injection. ENT, Mouth: Mucous membranes are moist. Respiratory: There are no retractions, lungs are clear to auscultation. Cardiovascular: Regular rate and rhythm, no murmurs, clicks or rubs. Gastrointestinal: Abdomen is soft, tenderness to the right upper quadrant with palpation s/p bladder surgery, hypoactive bowel sounds, no masses or pulsations. No abdominal bruits. And non tender, no masses, bowel sounds normal. Neurological: Alert and oriented 4. Moving all extremities. Following all commands. No focal neuro deficits. Skin: Warm and dry, no rashes. Musculoskeletal: Neck is supple non tender. Extremities are nontender, nonswollen and have full range of motion. DIFFERENTIAL DIAGNOSIS: After history and physical exam differential diagnosis was considered for nausea and vomiting including but not limited to gastroenteritis, gastritis, appendicitis, and medication side effect. Medical Decision Making Data Points Result Diagram: 03/23/18 1147 03/23/18 1147 Laboratory Hematology Test 03/23/18 11:47 Red Blood Count 5.86 M/uL (4.00-5.60) Mean Corpuscular Volume 91.6 fL (80.0-96.0) Mean Corpuscular Hemoglobin 32.8 pg (26.0-33.0) Mean Corpuscular Hemoglobin Concent 35.9 g/dL (32.0-36.0) Red Cell Distribution Width 13.8 % (11.5-14.5) Mean Platelet Volume 9.5 fL (7.2-11.1) Neutrophils (%) (Auto) 83.4 % (39.4-72.5) Lymphocytes (%) (Auto) 7.6 % (17.6-49.6) Monocytes (%) (Auto) 8.5 % (4.1-12.4) Eosinophils (%) (Auto) 0.1 % (0.4-6.7) Basophils (%) (Auto) 0.4 % (0.3-1.4) Nucleated RBC Relative Count (auto) 0.1 /100WBC Neutrophils # (Auto) 12.1 K/uL (2.0-7.4) Lymphocytes # (Auto) 1.1 K/uL (1.3-3.6) Monocytes # (Auto) 1.2 K/uL (0.3-1.0) Eosinophils # (Auto) 0.0 K/uL (0.0-0.5) Basophils # (Auto) 0.1 K/uL (0.0-0.1) Nucleated RBC Absolute Count (auto) 0.01 K/uL Sodium Level 137 mmol/L (137-145) Potassium Level 3.7 mmol/L (3.5-5.0) Chloride Level 90 mmol/L (98-107) Carbon Dioxide Level 26 mmol/L (22-30) Blood Urea Nitrogen 48 mg/dl (9-21) Creatinine 1.90 mg/dl (0.66-1.25) Glomerular Filtration Rate Calc 37.0 Random Glucose 297 mg/dl (75-110) Calcium Level 10.4 mg/dl (8.4-10.2) Total Bilirubin 4.0 mg/dl (0.2-1.3) Aspartate Amino Transf (AST/SGOT) 27 U/L (0-35) Alanine Aminotransferase (ALT/SGPT) 32 U/L (0-56) Alkaline Phosphatase 111 U/L (0-126) Total Protein 8.6 g/dl (6.3-8.2) Albumin 5.0 g/dl (3.5-5.0) Lipase 57 U/L (23-300) Chemistry Test 03/23/18 11:47 White Blood Count 14.5 k/uL (4.5-11.0) Red Blood Count 5.86 M/uL (4.00-5.60) Hemoglobin 19.2 g/dL (14.0-18.0) Hematocrit 53.7 % (42.0-52.0) Mean Corpuscular Volume 91.6 fL (80.0-96.0) Mean Corpuscular Hemoglobin 32.8 pg (26.0-33.0) Mean Corpuscular Hemoglobin Concent 35.9 g/dL (32.0-36.0) Red Cell Distribution Width 13.8 % (11.5-14.5) Platelet Count 260 K/uL (150-450) Mean Platelet Volume 9.5 fL (7.2-11.1) Neutrophils (%) (Auto) 83.4 % (39.4-72.5) Lymphocytes (%) (Auto) 7.6 % (17.6-49.6) Monocytes (%) (Auto) 8.5 % (4.1-12.4) Eosinophils (%) (Auto) 0.1 % (0.4-6.7) Basophils (%) (Auto) 0.4 % (0.3-1.4) Nucleated RBC Relative Count (auto) 0.1 /100WBC Neutrophils # (Auto) 12.1 K/uL (2.0-7.4) Lymphocytes # (Auto) 1.1 K/uL (1.3-3.6) Monocytes # (Auto) 1.2 K/uL (0.3-1.0) Eosinophils # (Auto) 0.0 K/uL (0.0-0.5) Basophils # (Auto) 0.1 K/uL (0.0-0.1) Nucleated RBC Absolute Count (auto) 0.01 K/uL Glomerular Filtration Rate Calc 37.0 Calcium Level 10.4 mg/dl (8.4-10.2) Total Bilirubin 4.0 mg/dl (0.2-1.3) Aspartate Amino Transf (AST/SGOT) 27 U/L (0-35) Alanine Aminotransferase (ALT/SGPT) 32 U/L (0-56) Alkaline Phosphatase 111 U/L (0-126) Total Protein 8.6 g/dl (6.3-8.2) Albumin 5.0 g/dl (3.5-5.0) Lipase 57 U/L (23-300) EKG/Imaging Imaging Location: [facility] - [place] Patient: Nikhil Orozco : 1960 Visit/Account:[id number] Date of Sevice: 03/23/2018 ACUTE ABDOMEN SERIES 3 VIEW INDICATION: Right-sided abdomen pain COMPARISON: CT and radiographs February 08, 2018 FINDINGS: Upright chest, upright abdomen and two supine abdomen radiographs obtained. The cardiac silhouette is normal in size. No pneumothorax. Clear lungs. No acute thoracic osseous abnormality. No intra-abdominal free air. Cholecystectomy clips noted. No organomegaly or abnormal calcifications. No dilated bowel loops. No acute abdomen or pelvic region osseous abnormality. IMPRESSION: No acute finding. Report Dictated By: Franky James MD at 03/23/2018 1:01 PM Report E-Signed By: Franky James MD at 03/23/2018 1:04 PM WSN:[email or web address] ED Course/Re-evaluation Clinical Indication for ER IV: Hydration, IV Access ED Course The patient was admitted to room. A history physical were obtained. Differential diagnoses were considered. IV was started. A CBC, CMP, lipase were obtained. CBC showing WBCs 14.5, hemoglobin 19.2, hematocrit 53.7, chemistry showing BUN 48, creatinine 1.9, glucose 297. I did review these with the patient. I do feel that these are secondary to his dehydration and demargination from vomiting. Patient was given 1 L normal saline 2, 4 mg IV Zofran 2. Patient states he is feeling much better, nausea is basically resolved. Abdominal pain has improved. Three-view abdominal series with no acute findings. I did review these with the patient. Patient states he is feeling much better at this time and is ready to go home. I did instruct the patient to follow-up with his primary care provider if no improvement within the next 7 days. Patient did agree to the plan of care. Patient was also instructed to return to the ER for any other concerns or worsening symptoms. Patient was discharged home. Decision to Disposition Date: Mar 23, 2018 Decision to Disposition Time: 14:03 Depart Departure Latest Vital Signs Vital Signs Date Time Temp Pulse Resp B/P (MAP) Pulse Ox O2 Delivery O2 Flow Rate FiO2 03/23/18 11:34 98.1 85 16 161/92 100 Room Air Impression: Primary Impression: Nausea & vomiting Condition: Improved Disposition: HOME OR SELF-CARE New Scripts Ondansetron (ZOFRAN ODT) 4 Mg Tab.rapdis 4 MG PO Q6H Y for NAUSEA/VOMITING, #20 TAB.FRANCESCA 0 Refills Prov: RAISSA CORREAP-BC 03/23/18 Patient Instructions: Acute Nausea and Vomiting (ED) Additional Instructions: Clear liquid diet for the next 12-24 hours, then slowly progress into a regular diet. Try small sips of fluid, if he continued to have nausea and vomiting, head and use the Zofran as directed. Follow-up with her primary care provider within one week if no resolution of abdominal pain, nausea and vomiting. Return to the emergency department for worsening symptoms. Problem Qualifiers Primary Impression: Nausea & vomiting Vomiting type: unspecified Vomiting Intractability: non-intractable Qualified Codes: R11.2 - Nausea with vomiting, unspecified RAISSA CORREA PRIVATE HOUSEHOLD WORKER-BC Mar 23, 2018 11:44
[2018-03-23] MEDS ORDERED: NS(*) 0.9% 1000 ML BAG 1,000 ML IV ONE ×2 (11:50→12:50)
[2018-03-23] MEDS ORDERED: ONDANSETRON 4 MG/2 ML VIAL IVP ONE ×2 (11:50→12:50)
[2018-03-23 11:57] LABS: PLATELET COUNT, AUTOMATED 260 K/uL (150-450)
[2018-03-23] MEDS ORDERED: DIPHTH/TETANUS/ACEL. PERTUSSIS IM ONLY ONE (12:28)
[2018-03-23 13:00] VITALS: BP 161/91
--- NOTE | 2018-03-23 13:07 | RADIOLOGY IMAGING REPORT ---
FACILITY: [facility] - [place] PATIENT NAME: Nikhil Orozco : 1960 MR: [id number] V: [id number] EXAM DATE: ORDERING PHYSICIAN: RAISSA CORREA TECHNOLOGIST: [place] [facility] [place] Nikhil Orozco : 1960 Visit/Account:[id number] Date of Sevice: 03/23/2018 ACUTE ABDOMEN SERIES 3 VIEW INDICATION: Right-sided abdomen pain COMPARISON: CT and radiographs February 08, 2018 FINDINGS: Upright chest, upright abdomen and two supine abdomen radiographs obtained. The cardiac silhouette is normal in size. No pneumothorax. Clear lungs. No acute thoracic osseous abnormality. No intra-abdominal free air. Cholecystectomy clips noted. No organomegaly or abnormal calcification s. No dilated bowel loops. No acute abdomen or pelvic region osseous abnormality. IMPRESSION: No acute finding. Report Dictated By: Franky James MD at 03/23/2018 1:01 PM Report E-Signed By: Franky James MD at 03/23/2018 1:04 PM WSN:[email or web address]
[2018-03-23] MEDS ORDERED: ONDA4TAB PO (14:05)
[2018-03-24] MEDS ORDERED: HYDR-385 PO (20:42)
== END 2018-03-23 14:14 | disposition home or self-care (01) ==
LOC: ER 11:45
DX: E86.0 Dehydration (principal); R11.2 Nausea with vomiting, unspecified
CPT/HCPCS: 74022; 83690; 85025; 96361; 96374; 96376; 99284; J2405; J7030; 82040; 82247; 82310; 82374; 82435; 82565; 82947; 84075; 84132; 84155; 84295; 84450; 84460; 84520; 99283

== ENCOUNTER 2018-03-24 17:32 | Emergency (ER) | payer SELFPAY ==
[2018-02-10 11:07] VITALS: Wt 83.9 kg
[2018-03-24] MEDS ORDERED: NS(*) 0.9% 1000 ML BAG 1,000 ML IV ONE (17:44)
[2018-03-24] MEDS ORDERED: ONDANSETRON 4 MG/2 ML VIAL IVP ONE (17:45)
--- NOTE | 2018-03-24 17:48 | ER Report ---
History and Physical Time Seen By MD: 17:42 HPI/ROS CHIEF COMPLAINT: Abdominal pain HISTORY OF PRESENT ILLNESS: This is a 57-year-old male who presents to the emergency department for abdominal pain. Patient was here last night I did evaluate and treat the patient, states he went home felt well got some sleep and then throughout the day today developed aches and chills, nausea some vomiting unable to keep fluids down again. Patient states that since then he's had increased abdominal pain. Denies chest pain or shortness of breath. No rashes. No dysuria. No bowel movement in proximally 2 days, patient states he's not had any significant intake. REVIEW OF SYSTEMS: Constitutional: As above. Eyes: No discharge. ENT: No sore throat. Cardiovascular: No chest pain, no palpitations. Respiratory: No cough, no shortness of breath. Gastrointestinal: As above. Genitourinary: No hematuria. Musculoskeletal: No back pain. Skin: No rashes. Neurological: No headache. Allergies: Coded Allergies: No Known Drug Allergies (Unverified , 03/23/18) Home Meds Active Scripts Hydrocodone Bit/Acetaminophen (HYDROCODON-ACETAMINOPHEN 5-325) 1 Each Tablet, 1 EACH PO Q4-6H Y for PAIN, #8 TAB 0 Refills Prov:RAISSA CORREA FRINGE KNOTTER-BC 03/24/18 Ondansetron (ZOFRAN ODT) 4 Mg Tab.rapdis, 4 MG PO Q6H Y for NAUSEA/VOMITING, # 20 TAB.FRANCESCA 0 Refills Prov:RAISSA CORREA FRINGE KNOTTER-BC 03/23/18 Potassium Chloride (POTASSIUM CHLORIDE) 20 Meq Tab.er.prt, 20 MEQ PO BIDBS, #60 TAB Prov:LALI PRATER DO 02/11/18 Reported Medications Insulin Glargine (LANTUS) 100 Unit/Ml Soln, 26 UNITS SUBQ DAILY 02/09/18 Insulin Lispro 100 Un/Ml Vial (HUMALOG 100 U/ML VIAL) 100 Unit/1 Ml Vial, 4 UNITS SUBQ ACHS 02/09/18 Aspirin (ASPIRIN) 81 Mg Tab.chew, 81 MG PO QDAY, TAB.CHEW 02/09/18 Lisinopril (LISINOPRIL) 10 Mg Tablet, 10 MG PO QDAY, TAB 02/08/18 Past Medical/Surgical History The patient has a past medical and surgical history of GERD, diabetes, polysubstance abuse, cholecystectomy. Reviewed Nurses Notes: Yes Hx Smoking: Yes Smoking Status: Never Smoker Hx Substance Use Disorder: Yes (Cocaine. Stopped 13 years ago.) Hx Alcohol Use: Yes Constitutional Vital Sign - Last 24 Hours 03/24/18 03/24/18 18:26 21:23 Temp 99.3 Pulse 100 85 Resp 16 16 B/P (MAP) 160/98 135/88 (104) Pulse Ox 94 92 O2 Delivery Room Air Room Air Physical Exam General Appearance: The patient is alert, has no immediate need for airway protection and no signs of toxicity. Eyes: Pupils equal and round no pallor or injection. ENT, Mouth: Mucous membranes are moist. Respiratory: There are no retractions, lungs are clear to auscultation. Cardiovascular: Regular rate and rhythm, no murmurs, clicks or rubs. Gastrointestinal: Abdomen is soft, tenderness to the right upper and lower quadrants. More discomfort surrounding the right lower quadrant. Hypoactive bowel sounds, no masses, no abdominal bruits. Neurological: Alert and oriented 4. Moving all extremities. Following all commands. No focal neuro deficits. Skin: Warm and dry, no rashes. Musculoskeletal: Neck is supple non tender. Extremities are nontender, nonswollen and have full range of motion. DIFFERENTIAL DIAGNOSIS: After history and physical exam differential diagnosis was considered for abdominal pain including but not limited to appendicitis, cholecystitis, gastritis and urinary tract infection. Medical Decision Making Data Points Result Diagram: 03/24/18 1814 03/24/18 1814 Laboratory Hematology Test 03/24/18 18:14 03/24/18 20:55 Red Blood Count 5.81 M/uL (4.00-5.60) Mean Corpuscular Volume 90.5 fL (80.0-96.0) Mean Corpuscular Hemoglobin 32.4 pg (26.0-33.0) Mean Corpuscular Hemoglobin Concent 35.8 g/dL (32.0-36.0) Red Cell Distribution Width 13.7 % (11.5-14.5) Mean Platelet Volume 9.9 fL (7.2-11.1) Neutrophils (%) (Auto) 71.2 % (39.4-72.5) Lymphocytes (%) (Auto) 15.5 % (17.6-49.6) Monocytes (%) (Auto) 12.7 % (4.1-12.4) Eosinophils (%) (Auto) 0.2 % (0.4-6.7) Basophils (%) (Auto) 0.4 % (0.3-1.4) Nucleated RBC Relative Count (auto) 0.0 /100WBC Neutrophils # (Auto) 8.9 K/uL (2.0-7.4) Lymphocytes # (Auto) 1.9 K/uL (1.3-3.6) Monocytes # (Auto) 1.6 K/uL (0.3-1.0) Eosinophils # (Auto) 0.0 K/uL (0.0-0.5) Basophils # (Auto) 0.1 K/uL (0.0-0.1) Nucleated RBC Absolute Count (auto) 0.00 K/uL Sodium Level 132 mmol/L (137-145) Potassium Level 3.3 mmol/L (3.5-5.0) Chloride Level 86 mmol/L (98-107) Carbon Dioxide Level 29 mmol/L (22-30) Blood Urea Nitrogen 39 mg/dl (9-21) Creatinine 1.70 mg/dl (0.66-1.25) Glomerular Filtration Rate Calc 42.1 Random Glucose 175 mg/dl (75-110) Calcium Level 10.2 mg/dl (8.4-10.2) Total Bilirubin 6.6 mg/dl (0.2-1.3) Aspartate Amino Transf (AST/SGOT) 23 U/L (0-35) Alanine Aminotransferase (ALT/SGPT) 26 U/L (0-56) Alkaline Phosphatase 93 U/L (0-126) Total Protein 8.7 g/dl (6.3-8.2) Albumin 4.9 g/dl (3.5-5.0) Lipase 57 U/L (23-300) Urine Color Yellow Urine Clarity Clear Urine pH 5.0 pH (4.8-9.5) Urine Specific [employer] 1.033 Urine Protein Negative mg/dL (NEGATIVE) Urine Glucose (UA) Negative mg/dL (NEGATIVE) Urine Ketones Trace mg/dL (NEGATIVE) Urine Blood Negative (NEGATIVE) Urine Nitrite Negative (NEGATIVE) Urine Bilirubin Negative (NEGATIVE) Urine Urobilinogen Negative mg/dL (0.2-1.9) Urine Leukocyte Esterase Negative (NEGATIVE) Urine RBC <1 /HPF (0-2/HPF) Urine WBC 1 /HPF (0-5/HPF) Urine Squamous Epithelial Cells None /LPF (</=FEW) Urine Bacteria Negative /HPF (NONE-FEW) Urine Hyaline Casts Few /LPF (NONE-FEW) Urine Mucus None /HPF (NONE-FEW) Chemistry Test 03/24/18 18:14 03/24/18 20:55 White Blood Count 12.5 k/uL (4.5-11.0) Red Blood Count 5.81 M/uL (4.00-5.60) Hemoglobin 18.8 g/dL (14.0-18.0) Hematocrit 52.6 % (42.0-52.0) Mean Corpuscular Volume 90.5 fL (80.0-96.0) Mean Corpuscular Hemoglobin 32.4 pg (26.0-33.0) Mean Corpuscular Hemoglobin Concent 35.8 g/dL (32.0-36.0) Red Cell Distribution Width 13.7 % (11.5-14.5) Platelet Count 261 K/uL (150-450) Mean Platelet Volume 9.9 fL (7.2-11.1) Neutrophils (%) (Auto) 71.2 % (39.4-72.5) Lymphocytes (%) (Auto) 15.5 % (17.6-49.6) Monocytes (%) (Auto) 12.7 % (4.1-12.4) Eosinophils (%) (Auto) 0.2 % (0.4-6.7) Basophils (%) (Auto) 0.4 % (0.3-1.4) Nucleated RBC Relative Count (auto) 0.0 /100WBC Neutrophils # (Auto) 8.9 K/uL (2.0-7.4) Lymphocytes # (Auto) 1.9 K/uL (1.3-3.6) Monocytes # (Auto) 1.6 K/uL (0.3-1.0) Eosinophils # (Auto) 0.0 K/uL (0.0-0.5) Basophils # (Auto) 0.1 K/uL (0.0-0.1) Nucleated RBC Absolute Count (auto) 0.00 K/uL Glomerular Filtration Rate Calc 42.1 Calcium Level 10.2 mg/dl (8.4-10.2) Total Bilirubin 6.6 mg/dl (0.2-1.3) Aspartate Amino Transf (AST/SGOT) 23 U/L (0-35) Alanine Aminotransferase (ALT/SGPT) 26 U/L (0-56) Alkaline Phosphatase 93 U/L (0-126) Total Protein 8.7 g/dl (6.3-8.2) Albumin 4.9 g/dl (3.5-5.0) Lipase 57 U/L (23-300) Urine Color Yellow Urine Clarity Clear Urine pH 5.0 pH (4.8-9.5) Urine Specific Delphi 1.033 Urine Protein Negative mg/dL (NEGATIVE) Urine Glucose (UA) Negative mg/dL (NEGATIVE) Urine Ketones Trace mg/dL (NEGATIVE) Urine Blood Negative (NEGATIVE) Urine Nitrite Negative (NEGATIVE) Urine Bilirubin Negative (NEGATIVE) Urine Urobilinogen Negative mg/dL (0.2-1.9) Urine Leukocyte Esterase Negative (NEGATIVE) Urine RBC <1 /HPF (0-2/HPF) Urine WBC 1 /HPF (0-5/HPF) Urine Squamous Epithelial Cells None /LPF (</=FEW) Urine Bacteria Negative /HPF (NONE-FEW) Urine Hyaline Casts Few /LPF (NONE-FEW) Urine Mucus None /HPF (NONE-FEW) Urinalysis Test 03/24/18 20:55 Urine Color Yellow Urine Clarity Clear Urine pH 5.0 pH (4.8-9.5) Urine Specific Delphi 1.033 Urine Protein Negative mg/dL (NEGATIVE) Urine Glucose (UA) Negative mg/dL (NEGATIVE) Urine Ketones Trace mg/dL (NEGATIVE) Urine Blood Negative (NEGATIVE) Urine Nitrite Negative (NEGATIVE) Urine Bilirubin Negative (NEGATIVE) Urine Urobilinogen Negative mg/dL (0.2-1.9) Urine Leukocyte Esterase Negative (NEGATIVE) Urine RBC <1 /HPF (0-2/HPF) Urine WBC 1 /HPF (0-5/HPF) Urine Squamous Epithelial Cells None /LPF (</=FEW) Urine Bacteria Negative /HPF (NONE-FEW) Urine Hyaline Casts Few /LPF (NONE-FEW) Urine Mucus None /HPF (NONE-FEW) EKG/Imaging Imaging Technique: Axial CT images were obtained through the abdomen and pelvis during injection of nonionic iodinated intravenous contrast. Reformatted coronal and sagittal images were also obtained. One of the following dose optimization techniques was utilized in the performance of this exam: Automated exposure control; adjustment of the mA and/ or kV according to the patient's size; or use of an iterative reconstruction technique. Specific details can be referenced in the facility's radiology CT exam operational policy. Contrast: 75 ml of Isovue-370 IV contrast. Findings: Lower lung ring: Limited views lower lung field are unremarkable. Liver: No focal parenchymal abnormality of the liver. Biliary: Status post cholecystectomy. The biliary system is unremarkable. Pancreas: Normal appearance. Spleen: Normal appearance. Adrenal glands: Unremarkable. Kidneys / retroperitoneum: No evidence of nephrolithiasis or hydronephrosis. No focal abnormality. Bowel / peritoneum / mesenteries: Diverticula seen along the descending sigmoid colon without pericolonic inflammation. The colon shows no other focal abnormality. The appendix is normal. The small bowel shows no focal abnormality or obstruction. Stomach shows no focal normality mild decompression and some debris in the lumen. No appreciable change from the previous exam. No free air, free fluid, fluid collections or areas of inflammation. Small left inguinal hernia containing fat which is stable. Lymph node assessment: No pathologic adenopathy identified. Pelvic structures: Appear unremarkable. Vessels: No significant atherosclerotic calcifications seen throughout a nonaneurysmal abdominal aorta and branches. Musculoskeletal / Body wall: No acute or aggressive osseous abnormality. Mild degenerative changes of spine. IMPRESSION: 1. No acute intra-abdominal abnormality 2. Diverticulosis without radiographic indication diverticulitis. 3. Other chronic stable findings as above. Report Dictated By: Marco A Josue at 03/24/2018 7:54 PM Report E-Signed By: Marco A Josue at 03/24/2018 8:00 PM WSN:[id number] ED Course/Re-evaluation Clinical Indication for ER IV: Hydration, IV Access ED Course The patient was admitted to room. A history and physical were obtained. Differential diagnoses were considered. An IV was started. A CBC, CMP A 1 L normal saline bolus was given. Lipase and UA were obtained. Patient was given 4 mg IV Zofran, 4 mg IV morphine, 0.5 mg IV Dilaudid. Patient states the pain as improved. Abdomen pelvis CT showing no acute intra-abdominal processes. Lab studies showing WBCs 12.5, hemoglobin 18.8, hematocrit 52.6, chemistry showing sodium 132, potassium 3.3, BUN 39, creatinine 1.7 glucose 175, total bilirubin 6.6 urine unremarkable. Most of the lab studies improved from yesterday however the total bilirubin has gone up. I did review the lab studies and the CT results with the patient, I did explain to him I do not have a clear explanation as to why he is having the abdominal pain. I did tell him it could be gastroenteritis, could be secondary to his surgery. Patient was instructed to follow-up with his primary care provider and Dr. Joseph for reevaluation. I did send the patient home with hydrocodone, patient was also given a prescription for hydrocodone. Patient does have Zofran at home. I also instructed the patient to follow-up with his primary care provider regarding the total bilirubin. Patient expressed understanding, states he is feeling better at this time and was discharged home. Decision to Disposition Date: Mar 24, 2018 Decision to Disposition Time: 21:16 Depart Departure Latest Vital Signs Vital Signs Date Time Temp Pulse Resp B/P (MAP) Pulse Ox O2 Delivery O2 Flow Rate FiO2 03/24/18 21:23 85 16 135/88 (104) 92 Room Air 03/24/18 18:26 99.3 Impression: Primary Impression: Abdominal pain of unknown etiology Additional Impression: Nausea and vomiting Condition: Improved Disposition: HOME OR SELF-CARE Referrals: [facility] (PCP) 5 Days New Scripts Hydrocodone Bit/Acetaminophen (HYDROCODON-ACETAMINOPHEN 5-325) 1 Each Tablet 1 EACH PO Q4-6H Y for PAIN, #8 TAB 0 Refills Prov: RAISSA CORREA FRINGE KNOTTER-BC 03/24/18 Patient Instructions: Abdominal Pain (ED), Acute Nausea and Vomiting (ED) Additional Instructions: Take small frequent sips of fluid. Continue with a clear liquid diet for the next 12-24 hours. Take the nausea medication as prescribed. Follow-up with your primary care provider within 5 days for reevaluation. Take the medications as prescribed. Return to the emergency department for any other concerns or worsening symptoms. Your bilirubin is slightly elevated, I would encourage you to follow-up with your primary care provider and have this reevaluated. Problem Qualifiers Additional Impression: Nausea and vomiting Vomiting type: unspecified Vomiting Intractability: non-intractable Qualified Codes: R11.2 - Nausea with vomiting, unspecified RAISSA CORREA [facility]- Mar 24, 2018 17:47
[2018-03-24] MEDS ORDERED: IOPAMIDOL 76% 100 ML INFUS BTL 100 ML ONE (17:57)
[2018-03-24] MEDS ORDERED: MORPHINE 4 MG/ML SDV IVP ONE (18:15)
[2018-03-24 18:33] LABS: PLATELET COUNT, AUTOMATED 261 K/uL (150-450)
[2018-03-24] MEDS ORDERED: HYDROmorphone* 1 MG/ML 1 MG/ML ML IVP ONE (19:50)
--- NOTE | 2018-03-24 20:04 | RADIOLOGY IMAGING REPORT ---
FACILITY: [facility] PATIENT NAME: Nikhil Orozco : 1960 MR: [id number] V: [id number] EXAM DATE: ORDERING PHYSICIAN: RAISSA CORREA TECHNOLOGIST: Location: [facility] [place] Patient: Nikhil Orozco : 1960 Visit/Account:[id number] Date of Sevice: 03/24/2018 CT abdomen and pelvis with IV contrast Indication: Abdominal pain. Comparison: 02/08/2018.. Technique: Axial CT images were obtained through the abdomen and pelvis during injection of nonioni c iodinated intravenous contrast. Reformatted coronal and sagittal images were also obtained. One of the following dose optimization techniques was utilized in the performance of this exam: Autom ated exposure control; adjustment of the mA and/or kV according to the patient's size; or use of an i terative reconstruction technique. Specific details can be referenced in the facility's radiology C T exam operational policy. Contrast: 75 ml of Isovue-370 IV contrast. Findings: Lower lung ring: Limited views lower lung field are unremarkable. Liver: No focal parenchymal abnormality of the liver. Biliary: Status post cholecystectomy. The biliary system is unremarkable. Pancreas: Normal appearance. Spleen: Normal appearance. Adrenal glands: Unremarkable. Kidneys / retroperitoneum: No evidence of nephrolithiasis or hydronephrosis. No focal abnormality. Bowel / peritoneum / mesenteries: Diverticula seen along the descending sigmoid colon without pericol onic inflammation. The colon shows no other focal abnormality. The appendix is normal. The small jaylan l shows no focal abnormality or obstruction. Stomach shows no focal normality mild decompression and some debris in the lumen. No appreciable change from the previous exam. No free air, free fluid, fluid collections or areas of inflammation. Small left inguinal hernia conta ining fat which is stable. Lymph node assessment: No pathologic adenopathy identified. Pelvic structures: Appear unremarkable. Vessels: No significant atherosclerotic calcifications seen throughout a nonaneurysmal abdominal aort a and branches. Musculoskeletal / Body wall: No acute or aggressive osseous abnormality. Mild degenerative changes of spine. IMPRESSION: 1. No acute intra-abdominal abnormality 2. Diverticulosis without radiographic indication diverticulitis. 3. Other chronic stable findings as above. Report Dictated By: Marco A Josue at 03/24/2018 7:54 PM Report E-Signed By: Marco A Josue at 03/24/2018 8:00 PM WSN:[id number]
[2018-03-24] MEDS ORDERED: HYDR-385 PO (20:42)
[2018-03-24] MEDS ORDERED: ACET/HYDROC 5/325MG TH ER ONLY 2 TAB/BOTTLE PO ONE (20:45)
[2018-03-24 21:23] VITALS: BP 135/88
== END 2018-03-24 21:24 | disposition home or self-care (01) ==
LOC: ER 17:34
DX: R10.31 Right lower quadrant pain (principal); R10.11 Right upper quadrant pain; R11.2 Nausea with vomiting, unspecified
CPT/HCPCS: 74177; 81001; 83690; 85025; 96361; 96374; 96375; 99284; J1170; J2270; J2405; J7030; Q9967; 82040; 82247; 82310; 82374; 82435; 82565; 82947; 84075; 84132; 84155; 84295; 84450; 84460; 84520

== ENCOUNTER → 2018-05-01 | Outpatient (CLI) | payer SELFPAY ==
[2018-02-10 11:07] VITALS: BMI 26.6
[~2018-05-01] MED LIST changes: +HYDR-385 PO
== END ==
LOC: LAB 11:49
PROVIDERS: ATTEND Surgery
DX: Z02.9 Encounter for administrative examinations, unspecified (principal)

== ENCOUNTER 2018-05-06 01:42 | Inpatient (IN) | payer SELFPAY ==
[2018-02-10 11:07] VITALS: Ht 175.3 cm; Wt 86.4 kg
[~2018-05-06] VITALS: Ht 175.3 cm; Wt 86.4 kg
--- NOTE | 2018-05-06 02:17 | ER Report ---
History and Physical Time Seen By MD: 02:16 Hx. of Stated Complaint: patient having nausea and vomiting x2days. HPI/ROS CHIEF COMPLAINT: vomiting HISTORY OF PRESENT ILLNESS: This is a 57 year old male. He has been vomiting for the last 48 hours. Cannot keep anything down. Trying fluids, but not working. He has diabetes as well, on Lantus insulin. He has not been urinating much, but it is darker, but denies dysuria. He has not had diarrhea. No fevers noted. No shortness of breath. Allergies: Coded Allergies: No Known Drug Allergies (Unverified , 03/23/18) Home Meds Reported Medications Insulin Glargine (LANTUS) 100 Unit/Ml Soln, 26 UNITS SUBQ DAILY 02/09/18 Aspirin (ASPIRIN) 81 Mg Tab.chew, 81 MG PO QDAY, TAB.CHEW 02/09/18 Lisinopril (LISINOPRIL) 10 Mg Tablet, 10 MG PO QDAY, TAB 02/08/18 Discontinued Reported Medications Insulin Lispro 100 Un/Ml Vial (HUMALOG 100 U/ML VIAL) 100 Unit/1 Ml Vial, 4 UNITS SUBQ ACHS 02/09/18 Discontinued Scripts Hydrocodone Bit/Acetaminophen (HYDROCODON-ACETAMINOPHEN 5-325) 1 Each Tablet, 1 EACH PO Q4-6H Y for PAIN, #8 TAB 0 Refills Prov:RAISSA CORREA [facility]- 03/24/18 Ondansetron (ZOFRAN ODT) 4 Mg Tab.rapdis, 4 MG PO Q6H Y for NAUSEA/VOMITING, # 20 TAB.FRANCESCA 0 Refills Prov:RAISSA CORREA [facility]-BC 03/23/18 Potassium Chloride (POTASSIUM CHLORIDE) 20 Meq Tab.er.prt, 20 MEQ PO BIDBS, #60 TAB Prov:LALI PRATER DO 02/11/18 Reviewed Nurses Notes: Yes Hx Smoking: Yes Smoking Status: Never Smoker Hx Substance Use Disorder: Yes (Cocaine. Stopped 13 years ago.) Hx Alcohol Use: Yes Constitutional Vital Sign - Last 24 Hours 05/06/18 05/06/18 05/06/18 05/06/18 01:57 02:05 02:12 02:22 Temp 98.3 Pulse 97 90 88 Resp 24 B/P (MAP) 159/128 162/106 (124) Pulse Ox 96 96 95 O2 Delivery Room Air 05/06/18 05/06/18 05/06/18 05/06/18 02:27 02:30 03:00 03:12 Pulse 78 88 B/P (MAP) 156/86 (109) 122/78 (93) Pulse Ox 97 89 05/06/18 05/06/18 05/06/18 05/06/18 03:27 03:47 04:00 04:02 Pulse ??? 82 84 B/P (MAP) 120/78 (92) Pulse Ox 92 96 05/06/18 05/06/18 05/06/18 05/06/18 04:17 04:22 04:30 04:37 Pulse 92 ??? 70 B/P (MAP) 125/87 (100) Pulse Ox 96 96 94 05/06/18 05/06/18 05/06/18 05/06/18 04:42 04:57 05:00 05:12 Pulse 72 91 ??? B/P (MAP) 156/108 (124) Pulse Ox 97 93 98 05/06/18 05/06/18 05/06/18 05/06/18 05:17 05:30 05:32 05:47 Pulse 89 79 76 B/P (MAP) 152/81 (104) Pulse Ox 94 96 Physical Exam General Appearance: The patient is alert. Acute distress due to vomiting and pain. Eyes: Pupils are equal, round. No pallor, injection or icterus. ENT: Mucous membranes are dry. Respiratory: Lungs are clear to auscultation. Cardiovascular: Regular rate and rhythm. No murmurs, gallops or rubs. Normal capillary refill. Gastrointestinal: Abdomen is soft, diffuse pain. Nondistended. Hyperactive bowel sounds. Neurological: Alert and oriented x3. Skin: Warm and dry. No rashes. DIFFERENTIAL DIAGNOSIS: After history and physical exam, differential diagnosis was considered for abdominal pain and vomiting including but not limited to gastroenteritis, colitis, diverticulitis, diabetic ketoacidosis dehydration and urinary tract infection. Medical Decision Making Data Points Result Diagram: 05/06/18 1409 05/06/18 1409 Laboratory Hematology Test 05/06/18 01:55 05/06/18 04:47 Amylase Level 83 U/L (0-110) Lipase 86 U/L (23-300) Acetone, Qualitative Negative Urine Color Yellow Urine Clarity Cloudy Urine pH 5.0 pH (4.8-9.5) Urine Specific Dewitt 1.020 Urine Protein 100 mg/dL (NEGATIVE) Urine Glucose (UA) 50 mg/dL (NEGATIVE) Urine Ketones Negative mg/dL (NEGATIVE) Urine Blood Negative (NEGATIVE) Urine Nitrite Negative (NEGATIVE) Urine Bilirubin Negative (NEGATIVE) Urine Urobilinogen Negative mg/dL (0.2-1.9) Urine Leukocyte Esterase Negative (NEGATIVE) Urine RBC 1 /HPF (0-2/HPF) Urine WBC 5 /HPF (0-5/HPF) Urine Squamous Epithelial Cells Few /LPF (</=FEW) Urine Calcium Oxalate Crystals Few /HPF (NONE) Urine Bacteria Few /HPF (NONE-FEW) Urine Hyaline Casts Many /LPF (NONE-FEW) Urine Mucus Few /HPF (NONE-FEW) Chemistry Test 05/06/18 01:55 05/06/18 04:47 Amylase Level 83 U/L (0-110) Lipase 86 U/L (23-300) Acetone, Qualitative Negative Urine Color Yellow Urine Clarity Cloudy Urine pH 5.0 pH (4.8-9.5) Urine Specific Dewitt 1.020 Urine Protein 100 mg/dL (NEGATIVE) Urine Glucose (UA) 50 mg/dL (NEGATIVE) Urine Ketones Negative mg/dL (NEGATIVE) Urine Blood Negative (NEGATIVE) Urine Nitrite Negative (NEGATIVE) Urine Bilirubin Negative (NEGATIVE) Urine Urobilinogen Negative mg/dL (0.2-1.9) Urine Leukocyte Esterase Negative (NEGATIVE) Urine RBC 1 /HPF (0-2/HPF) Urine WBC 5 /HPF (0-5/HPF) Urine Squamous Epithelial Cells Few /LPF (</=FEW) Urine Calcium Oxalate Crystals Few /HPF (NONE) Urine Bacteria Few /HPF (NONE-FEW) Urine Hyaline Casts Many /LPF (NONE-FEW) Urine Mucus Few /HPF (NONE-FEW) Toxicology Test 05/06/18 01:55 Acetone, Qualitative Negative Urinalysis Test 05/06/18 04:47 Urine Color Yellow Urine Clarity Cloudy Urine pH 5.0 pH (4.8-9.5) Urine Specific Dewitt 1.020 Urine Protein 100 mg/dL (NEGATIVE) Urine Glucose (UA) 50 mg/dL (NEGATIVE) Urine Ketones Negative mg/dL (NEGATIVE) Urine Blood Negative (NEGATIVE) Urine Nitrite Negative (NEGATIVE) Urine Bilirubin Negative (NEGATIVE) Urine Urobilinogen Negative mg/dL (0.2-1.9) Urine Leukocyte Esterase Negative (NEGATIVE) Urine RBC 1 /HPF (0-2/HPF) Urine WBC 5 /HPF (0-5/HPF) Urine Squamous Epithelial Cells Few /LPF (</=FEW) Urine Calcium Oxalate Crystals Few /HPF (NONE) Urine Bacteria Few /HPF (NONE-FEW) Urine Hyaline Casts Many /LPF (NONE-FEW) Urine Mucus Few /HPF (NONE-FEW) EKG/Imaging Imaging ACUTE ABDOMEN SERIES 3 VIEW HISTORY: Vomiting. Abdominal pain. COMPARISON: CT abdomen pelvis 03/24/2018. Most recent abdominal series 03/23/2018 and studies dating to 02/04/2018. TECHNIQUE: PA upright view of the chest, AP supine and AP upright views of the abdomen. Chest: The lungs are clear. The cardiac and mediastinal silhouettes are within normal limits. There is mild degenerative change of the spine. There is a slight rightward curvature of the upper thoracic spine, and there is a slight leftward curvature of the lower thoracic spine. Abdomen: The distribution of bowel gas is normal, with bowel in all four quadrants as well as centrally. No free air. No dilated loops of bowel. There are surgical clips in the right upper quadrant from cholecystectomy. There are pelvic phleboliths. There is mild degenerative change of the spine. IMPRESSION: 1. No acute cardiopulmonary process. 2. Unremarkable bowel gas pattern without obstruction. Report Dictated By: Nancy Tenorio at 05/06/2018 3:07 AM ABDOMEN/PELVIS W/O CONTRAST HISTORY: Abdominal pain, nausea, and vomiting. COMPARISON: Abdominal series same day. Prior CTs 03/24/2018 and studies dating to 02/04/2018. TECHNIQUE: Axial images were obtained from the lung bases through the symphysis pubis without intravenous contrast. Sagittal and coronal reformats were performed. One of the following dose optimization techniques was utilized in the performance of this exam: Automated exposure control; adjustment of the mA and/ or kV according to the patient's size; or use of an iterative reconstruction technique. Specific details can be referenced in the facility's radiology CT exam operational policy. CONTRAST: None. FINDINGS: Lower chest: Normal. Liver: Normal. Gallbladder/biliary: Status post cholecystectomy. Pancreas: Normal. Spleen: Normal. Adrenals: Normal. Kidneys/ureters/bladder: Normal. GI/mesentery/peritoneal cavity: There is no bowel obstruction. There is no wall thickening or pericolonic stranding. The appendix is normal. There is sigmoid and descending colon diverticulosis without diverticulitis. No free air or free fluid. Vessels: There is mild atherosclerotic disease without aneurysm. The hepatic artery originates directly from the aorta, a developmental variant. Nodes: Normal. Pelvis: There is a small to moderate fat-containing left inguinal hernia, unchanged. There are phleboliths. There are punctate calcifications within the normal sized prostate. Bones/vertebra/soft tissues: There is mild degenerative change of the spine. There is severe degenerative facet disease at L5-S1 on the left. Vertebral body heights are maintained, with the exception of stable wedging of T11 and T12, likely physiologic. IMPRESSION: 1. No findings in the abdomen or pelvis to account for the patient's symptoms. 2. Normal appendix. 3. Descending and sigmoid diverticulosis without diverticulitis. 4. Stable small to moderate fat-containing left inguinal hernia. Report Dictated By: Nancy Tenorio at 05/06/2018 3:51 AM ED Course/Re-evaluation Clinical Indication for ER IV: Hydration, IV Access ED Course Improved with IV fluids (2 liters of NS) and some Zofran. Discussed labs with the patient. He wanted to try to go home with medicines and oral rehydration, but on trial of oral liquids, began vomiting again. Discussed the case with Dr. Sow, admitted for nausea/vomiting with acute renal failure. Decision to Disposition Date: May 06, 2018 Decision to Disposition Time: 06:01 Depart Departure Latest Vital Signs Vital Signs Date Time Temp Pulse Resp B/P (MAP) Pulse Ox O2 Delivery O2 Flow Rate FiO2 05/06/18 05:47 76 05/06/18 05:32 96 05/06/18 05:30 152/81 (104) 05/06/18 02:05 98.3 24 Room Air Impression: Primary Impression: ARF (acute renal failure) Additional Impression: Nausea & vomiting Condition: Condition Unchanged Disposition: Admitted from ER Referrals: ALAN DUMONT [employer] (PCP) Problem Qualifiers Primary Impression: ARF (acute renal failure) Acute renal failure type: unspecified Qualified Codes: N17.9 - Acute kidney failure, unspecified Additional Impression: Nausea & vomiting Vomiting type: unspecified Vomiting Intractability: unspecified Qualified Codes: R11.2 - Nausea with vomiting, unspecified SOURAV WERNER MD May 06, 2018 02:17
[2018-05-06] MEDS ORDERED: ONDANSETRON 4 MG/2 ML VIAL IVP ONE ×2 (02:20→05:05)
[2018-05-06] MEDS ORDERED: NS(*) 0.9% 1000 ML BAG 1,000 ML IV ONE ×2 (02:25→03:15)
[2018-05-06 02:33] LABS: PLATELET COUNT, AUTOMATED 303 K/uL (150-450)
--- NOTE | 2018-05-06 03:21 | RADIOLOGY IMAGING REPORT ---
FACILITY: [facility] PATIENT NAME: Nikhil Orozco : 1960 MR: [id number] V: [id number] EXAM DATE: ORDERING PHYSICIAN: SOURAV WERNER TECHNOLOGIST: Location: [facility] Patient: Nikhil Orozco : 1960 Visit/Account:[id number] Date of Sevice: 05/06/2018 ACUTE ABDOMEN SERIES 3 VIEW HISTORY: Vomiting. Abdominal pain. COMPARISON: CT abdomen pelvis 03/24/2018. Most recent abdominal series 03/23/2018 and studies dating to . TECHNIQUE: PA upright view of the chest, AP supine and AP upright views of the abdomen. Chest: The lungs are clear. The cardiac and mediastinal silhouettes are within normal limits. There i s mild degenerative change of the spine. There is a slight rightward curvature of the upper thoracic spine, and there is a slight leftward curvature of the lower thoracic spine. Abdomen: The distribution of bowel gas is normal, with bowel in all four quadrants as well as central ly. No free air. No dilated loops of bowel. There are surgical clips in the right upper quadrant from cholecystectomy. There are pelvic phlebolit hs. There is mild degenerative change of the spine. IMPRESSION: 1. No acute cardiopulmonary process. 2. Unremarkable bowel gas pattern without obstruction. Report Dictated By: Nancy Tenorio at 05/06/2018 3:07 AM Report E-Signed By: Nancy Tenorio at 05/06/2018 3:09 AM WSN:[id number]
--- NOTE | 2018-05-06 04:01 | RADIOLOGY IMAGING REPORT ---
FACILITY: [facility] PATIENT NAME: Nikhil Orozco : 1960 MR: [id number] V: [id number] EXAM DATE: ORDERING PHYSICIAN: SOURAV WERNER TECHNOLOGIST: Location: [facility] Patient: Nikhil Orozco : 1960 Visit/Account:[id number] Date of Sevice: 05/06/2018 ABDOMEN/PELVIS W/O CONTRAST HISTORY: Abdominal pain, nausea, and vomiting. COMPARISON: Abdominal series same day. Prior CTs 03/24/2018 and studies dating to 02/04/2018. TECHNIQUE: Axial images were obtained from the lung bases through the symphysis pubis without intrave nous contrast. Sagittal and coronal reformats were performed. One of the following dose optimization techniques was utilized in the performance of this exam: Autom ated exposure control; adjustment of the mA and/or kV according to the patient's size; or use of an i terative reconstruction technique. Specific details can be referenced in the facility's radiology CT exam operational policy. CONTRAST: None. FINDINGS: Lower chest: Normal. Liver: Normal. Gallbladder/biliary: Status post cholecystectomy. Pancreas: Normal. Spleen: Normal. Adrenals: Normal. Kidneys/ureters/bladder: Normal. GI/mesentery/peritoneal cavity: There is no bowel obstruction. There is no wall thickening or pericol onic stranding. The appendix is normal. There is sigmoid and descending colon diverticulosis without diverticulitis. No free air or free fluid. Vessels: There is mild atherosclerotic disease without aneurysm. The hepatic artery originates direct ly from the aorta, a developmental variant. Nodes: Normal. Pelvis: There is a small to moderate fat-containing left inguinal hernia, unchanged. There are phlebo liths. There are punctate calcifications within the normal sized prostate. Bones/vertebra/soft tissues: There is mild degenerative change of the spine. There is severe degenera tive facet disease at L5-S1 on the left. Vertebral body heights are maintained, with the exception of stable wedging of T11 and T12, likely physiologic. IMPRESSION: 1. No findings in the abdomen or pelvis to account for the patient's symptoms. 2. Normal appendix. 3. Descending and sigmoid diverticulosis without diverticulitis. 4. Stable small to moderate fat-containing left inguinal hernia. Report Dictated By: Nancy Tenorio at 05/06/2018 3:51 AM Report E-Signed By: Nancy Tenorio at 05/06/2018 3:57 AM WSN:[id number]
[2018-05-06] MEDS ORDERED: INSULIN HUM LISPRO 100 UN/ML 3 ML VIAL SUBQ PRN (05:55)
[2018-05-06 06:12] VITALS: BP 153/76
[2018-05-06] MEDS: NS(*) 0.9% 1000 ML BAG 1,000 ML IV PRN ×2 (06:24→18:30)
--- NOTE | 2018-05-06 06:27 | History & Physical ---
History of Present Illness History of Present Illness 57yo male with insulin dependant diabetes who came to the ER for 2 days of n/v. He was in his normal state of health until 2 mornings ago. He vomits multiple times a day and has difficulty keeping down even liquids. Because it wasn't improving he came to the ER. He denies sick contacts/suspicious food/ dysuria/diarrhea/hematemesis/coffee ground substance in vomitus. He has a cough /coryza for a few days. He had some chills yesterday to today. He denies any new medications. He does have RUQ pain that is worse, but he has had this pain since his cholecystectomy in January and is followed by Dr. Smith for this. The patient reports having 4.5 days of n/v/diarrhea in early March. He was seen through the ER and it resolved. He then had a one day episode in late March. In the ER, he received 2 liters of NS and Zofran x2. History Problems: (1) Type I diabetes mellitus Status: Chronic Home Meds Reported Medications Insulin Glargine (LANTUS) 100 Unit/Ml Soln, 26 UNITS SUBQ DAILY 02/09/18 Aspirin (ASPIRIN) 81 Mg Tab.chew, 81 MG PO QDAY, TAB.CHEW 02/09/18 Lisinopril (LISINOPRIL) 10 Mg Tablet, 10 MG PO QDAY, TAB 02/08/18 Discontinued Reported Medications Insulin Lispro 100 Un/Ml Vial (HUMALOG 100 U/ML VIAL) 100 Unit/1 Ml Vial, 4 UNITS SUBQ ACHS 02/09/18 Discontinued Scripts Hydrocodone Bit/Acetaminophen (HYDROCODON-ACETAMINOPHEN 5-325) 1 Each Tablet, 1 EACH PO Q4-6H Y for PAIN, #8 TAB 0 Refills Prov:RAISSA CORREA [employer]-[facility] 03/24/18 Ondansetron (ZOFRAN ODT) 4 Mg Tab.rapdis, 4 MG PO Q6H Y for NAUSEA/VOMITING, # 20 TAB.FRANCESCA 0 Refills Prov:RAISSA CORREA [employer]-[facility] 03/23/18 Potassium Chloride (POTASSIUM CHLORIDE) 20 Meq Tab.er.prt, 20 MEQ PO BIDBS, #60 TAB Prov:LALI PRATER DO 02/11/18 Allergies: Coded Allergies: No Known Drug Allergies (Unverified , 03/23/18) Patient History: FH: CAD (coronary artery disease) FATHER, , Age:85 FH: COPD (chronic obstructive pulmonary disease) FATHER, , Age:85 FH: HTN (hypertension) FATHER, , Age:85 FH: breast cancer MOTHER, , Age:74 FH: dementia FATHER, , Age:85 FH: pulmonary embolism FATHER, , Age:85 Stroke or transient ischemic attack in father FATHER, , Age:85 Vascular disease MOTHER, , Age:74 Other Social/Family Hx He denies any tobacco, drug or alcohol use. However, there is a previous social history that reports daily marijuana use. Hx Smoking: Yes Smoking Status: Never Smoker Hx Alcohol Use: Yes Hx Substance Use Disorder: Yes (Cocaine. Stopped 13 years ago.) Social Drug Use: Currently Social Drugs: Marijuana Review of Systems All Systems Reviewed/Normal: Yes, Except as Noted Exam Vital Signs Vital Signs Date Time Temp Pulse Resp B/P (MAP) Pulse Ox O2 Delivery O2 Flow Rate FiO2 05/06/18 05:12 ??? 98 05/06/18 05:00 156/108 (124) 05/06/18 02:05 98.3 24 Room Air General Appearance: Alert, Awake, Other (Pale and looks mildly uncomfortable. Breathing normally.) Neuro: No Gross deficits Cardiovascular: Regular Rate and Rhythm Respiratory: Clear to Auscultation GI: Other (Soft, non-distended. Pain with palpation in the RUQ. No peritoneal signs) Extremities: No Edema Integumentary: No Jaundice, No Cyanosis Medical Decision Making Data Points Result Diagram: 05/06/18 0155 05/06/18 015 Item Value Date Time Amylase Level 83 U/L 05/06/18 0155 Lipase 86 U/L 05/06/18 0155 Total Bilirubin 3.7 mg/dl H 05/06/18 0155 Aspartate Amino Transf (AST/SGOT) 22 U/L 05/06/18 0155 Alanine Aminotransferase (ALT/SGPT) 25 U/L 05/06/18 0155 Alkaline Phosphatase 103 U/L 05/06/18 0155 Total Bilirubin 6.6 mg/dl H 03/24/18 1814 Total Bilirubin 4.0 mg/dl H 03/23/18 1147 Urine RBC 1 /HPF 05/06/18 0447 Urine WBC 5 /HPF 05/06/18 044 Urine Squamous Epithelial Cells Few /LPF 05/06/18 044 Urine Calcium Oxalate Crystals Few /HPF H 05/06/18 044 Urine Hyaline Casts Many /LPF H 05/06/18 044 Urine Glucose (UA) 50 mg/dL H 05/06/18 044 Urine Leukocyte Esterase Negative 05/06/18446 Urine Nitrite Negative 05/06/18 044 Acetone, Qualitative Negative 05/06/18 0155 EKG / Imaging Imaging Abd/Pelvis CT - 1. No findings in the abdomen or pelvis to account for the patient's symptoms. 2. Normal appendix. 3. Descending and sigmoid diverticulosis without diverticulitis. 4. Stable small to moderate fat-containing left inguinal hernia. Assessment and Plan Problems: (1) Nausea and vomiting Status: Acute Assessment & Plan: He presented with 2 days of nausea and vomiting. He was admitted in November for n/v related to DKA and started on treatment for diabetes. He was admitted in January for n/v and also had RUQ pain. He ended up have cholecystitis and had a cholecystectomy. He has continued to have RUQ pain and is followed by Dr. Smith. He had a 4.5 day episode of n/v and was treated through the ER in early March. He then had a 1 day event of n/v in late March. He has a leukocytosis and some pyuria, but CT of the abd/pelvis without any obvious source. Will hydrate, give Zofran and Phenergan as needed and recheck labs at 1400. (2) ARF (acute renal failure) Status: Acute Assessment & Plan: Secondary to dehydration and exacerbated by lisinopril use. Hydrate and follow labs. (3) Type I diabetes mellitus Status: Chronic Assessment & Plan: Diagnosed in November. He had a low C-Peptid. He is on Lantus 26 units a day. Will decrease to 18 units and cover with SSI level 1. Copies to: ALAN DUMONT NP; LALI SMITH MD Venous Thromboembolism Antithrombotics Is Pt On Any Antithrombotics?: No Exam Sepsis Risk: No Definite Risk CHINA LARKIN MD May 06, 2018 06:26
[2018-05-06] MEDS: PROMETHAZINE 25 MG/ML 1 ML AMP IVP PRN ×3 (07:35→21:35)
[2018-05-06 07:49] VITALS: BP 154/85
[2018-05-06] MEDS: INSULIN GLARGINE 100 U/ML 3 ML PEN SUBQ SCH (09:44)
[2018-05-06] MEDS: ONDANSETRON 4 MG/2 ML VIAL IVP PRN ×4 (09:56→22:34)
[2018-05-06 11:40] VITALS: BP 149/71
[2018-05-06 14:16] LABS: PLATELET COUNT, AUTOMATED 223 K/uL (150-450)
--- NOTE | 2018-05-06 14:31 | Medical Nutrition Therapy ---
Nutrition Anthropometrics Height (Inches): 69 (from last admit) Weight (Pounds): 190 Weight (Calculated Kilograms): 86.353 BMI: 28.1 Awais Nutrition Score: Adequate Awais Nutrition Risk Score: 20 Dietary Referral Nutrition Risk Factors: Nutrition Risk Comment: Physical Findings Physical Appearance: Overweight BMI 25-29 Skin Appearance Skin Appearance: Edema Edema Location Modifier: Edema Location: Type of Edema: Degree of Edema: Gastrointestinal Symptoms GI Symtoms: Nausea, Vomiting, Appetite Changes, Heartburn Tube Present: Bowel Sounds: Recent Bowel Pattern: Stool Characteristics: Nutritional Diagnosis Nutritional Risk Acuity 1: Acute/ES Renal Nutritional Risk Acuity 3: Nausea (N/V 2 days) Past Medical History: T1DM, GERD, hyponatremia, hyperbilirubinemia, nausea and vomiting Nutritional Acuity: 1-High Nutrition Diagnosis: Inadequate Food Intake Nutrition Etiology: Physiological Causes Nutrition Problem/Etiology/Sym: AEB N/V and clear liquid diet Energy Requirement: 2200 (M- StJ) Protein Requirement: 69 (.8gm/kg) Fluid Requirement: 2200 (1ml/kg) Diet Type: Clear Liquids Nutrition Intervention: Incr diet as tolerated Nutrition Monitoring & Eval Nutrition Goals: Eat 75-100% Meal RD Patient Assessment Time: [address] Assessment Type: RD Assessment Patient Nutrition Acuity: 1-High Follow Up Date: May 09, 2018 Nutritional Comment: 05/06 Pt admitted with 2 day hx N/V with ARF d/t dehydration. BUN 42, Creatinine 2.6. Pt on clear liquid diet and eating 25-90% os small portions. Pt has dx T1DM. pt did recieve diabetic diet education on last admit. Will f/u with pt on diet when diet advances and is more appropriate. ANA GUILLEN May 06, 2018 14:31
[2018-05-06 15:12] VITALS: BP 149/82
[2018-05-06] MEDS ORDERED: LIDOCAINE 5% PATCH TP PRN ×2 (18:45→19:10)
[2018-05-06] MEDS ORDERED: PATCH REMOVAL 1 EA TP PRN (18:50)
[2018-05-06 19:25] VITALS: BP 159/90
[2018-05-06] MEDS ORDERED: MAGNESIUM HYDROXIDE* 30ML UDCP PO PRN (19:40)
[2018-05-06] MEDS ORDERED: BISACODYL 10 MG SUPP PR PRN (19:40)
[2018-05-06] MEDS: DOCUSATE SODIUM 100 MG CAP PO SCH (20:52)
[2018-05-06 23:10] VITALS: BP 145/87
[2018-05-07] MEDS: ONDANSETRON 4 MG/2 ML VIAL IVP PRN ×4 (02:40→19:50)
[2018-05-07 02:42] VITALS: BP 157/90
[2018-05-07] MEDS: PROMETHAZINE 25 MG/ML 1 ML AMP IVP PRN ×3 (02:58→21:14)
[2018-05-07 06:20] LABS: PLATELET COUNT, AUTOMATED 194 K/uL (150-450)
[2018-05-07 09:22] VITALS: BP 120/69
[2018-05-07] MEDS: INSULIN GLARGINE 100 U/ML 3 ML PEN SUBQ SCH (09:31)
[2018-05-07] MEDS: DOCUSATE SODIUM 100 MG CAP PO SCH (09:33)
[2018-05-07] MEDS: POLYETHYLENE GLYCOL 17 GM PKT PO SCH (09:33)
[2018-05-07 11:54] VITALS: BP 134/69
--- NOTE | 2018-05-07 12:23 | Hospitalist Progress Note ---
Subjective Progress Notes Subjective His abdominal symptoms (pain/N/V) almost completely resolved. Physical Exam Vital Signs Date Time Temp Pulse Resp B/P (MAP) Pulse Ox O2 Delivery O2 Flow Rate FiO2 05/07/18 11:54 96 05/07/18 11:54 98.3 57 20 134/69 (90) Room Air 05/06/18 23:10 2.0 Intake and Output 05/08/18 07:00 # Voids 2 General Appearance: Alert, Awake Cardiovascular: Regular Rate and Rhythm Respiratory: Clear to Auscultation GI: Soft and Non-Tender (BS present) Psych: Alert & Oriented X3 Result Diagram: 05/07/18 0533 05/07/18532 Assessment and Plan Problems: (1) Nausea and vomiting Status: Acute Assessment & Plan: He presented with 2 days of nausea and vomiting. He was admitted in November for n/v related to DKA and started on treatment for diabetes. He was admitted in January for n/v and also had RUQ pain. He ended up have cholecystitis and had a cholecystectomy. He has continued to have RUQ pain and is followed by Dr. Lucero. He had a 4.5 day episode of n/v and was treated through the ER in early March. He then had a 1 day event of n/v in late March. He has a leukocytosis and some pyuria, but CT of the abdomen/pelvis without any obvious source. Labs have improved/normalized, as have his symptoms. He does use marijuana on a daily basis. He now believes this may be a potential cause. Will advance his diet. Will continue to watch labs. Discussed possible options to marijuana as he uses it for pain control. (2) ARF (acute renal failure) Status: Acute Assessment & Plan: Secondary to dehydration and exacerbated by lisinopril use. Improved/resolved. Follow labs. (3) Type I diabetes mellitus Status: Chronic Assessment & Plan: Diagnosed in November. He had a low C-Peptid. He is on Lantus 26 units a day - currently on 18 units daily and cover with SSI level 1. Exam Sepsis Risk: No Definite Risk Problem Qualifiers (1) ARF (acute renal failure): Acute renal failure type: unspecified Qualified Codes: N17.9 - Acute kidney failure, unspecified JOHN REBOLLEDO MD May 07, 2018 12:23
[2018-05-07 14:47] VITALS: BP 127/77
[2018-05-07 21:13] VITALS: BP 109/78
[2018-05-08 00:03] VITALS: BP 155/89
[2018-05-08] MEDS: ONDANSETRON 4 MG/2 ML VIAL IVP PRN (00:06)
[2018-05-08 03:01] VITALS: BP 113/72
[2018-05-08 05:36] LABS: PLATELET COUNT, AUTOMATED 223 K/uL (150-450)
[2018-05-08 07:43] VITALS: BP 151/90
[2018-05-08] MEDS ORDERED: ONDANSETRON 4 MG ODT TABDP SL PRN (08:20)
[2018-05-08] MEDS ORDERED: ONDA4TAB9 SL (08:40)
[2018-05-08] MEDS ORDERED: LIDO700A19 TP (08:40)
[2018-05-08] MEDS ORDERED: LISINOPRIL 10 MG TAB PO SCH (09:00)
[2018-05-08] MEDS: POLYETHYLENE GLYCOL 17 GM PKT PO SCH (09:14)
[2018-05-08] MEDS: INSULIN GLARGINE 100 U/ML 3 ML PEN SUBQ SCH (09:15)
[2018-05-08] MEDS: DOCUSATE SODIUM 100 MG CAP PO SCH (09:15)
--- NOTE | 2018-05-08 09:45 | Hospitalist Depart ---
Discharge Summary Reason for Hosp/Final Diag: (1) Nausea and vomiting Status: Acute Hospital Course & Plan: He presented with 2 days of nausea and vomiting. He was admitted in November for n/v related to DKA and started on treatment for diabetes. He was admitted in January for n/v and also had RUQ pain. He ended up have cholecystitis and had a cholecystectomy. He has continued to have RUQ pain and is followed by Dr. Lucero. He had a 4.5 day episode of n/v and was treated through the ER in early March. He then had a 1 day event of n/v in late March. He has a leukocytosis and some pyuria, but CT of the abdomen/pelvis without any obvious source. Labs have improved/normalized, as have his symptoms. He does use marijuana on a daily basis. He now believes this may be a potential cause. His diet was advanced and tolerated well. Discussed possible options to marijuana as he uses it for pain control. Gave prescription for Lidocaine patches for pain, as well as Zofran for nausea. (2) ARF (acute renal failure) Status: Acute Hospital Course & Plan: Secondary to dehydration and exacerbated by lisinopril use. Improved/resolved. (3) Type I diabetes mellitus Status: Chronic Hospital Course & Plan: Diagnosed in November. He had a low C-Peptid. He is on Lantus 26 units a day. Departure Latest Vital Signs Vital Signs 05/08/18 05/08/18 03:01 07:43 Temp 98.3 Pulse 59 Resp 16 B/P (MAP) 151/90 (110) Pulse Ox 99 O2 Delivery Room Air O2 Flow Rate 2.0 Weight (Pounds): 190 Weight (Ounces): 6.0 Result Diagram: 05/08/1851705/08/18517 Condition: Improved Discharge: Home, Self Care Discharge Instructions Home Meds Active Scripts Ondansetron (ONDANSETRON ODT) 4 Mg Tab.rapdis, 4 MG SL Q6H Y for NAUSEA/VOMITING , #30 TAB Prov:MATRA SONG 05/08/18 Lidocaine (Lidocaine) 5 % Adh..patch, 1 EACH TP QDAY Y for pain, #15 PATCH Prov:MARTA SONG 05/08/18 Reported Medications Insulin Glargine (LANTUS) 100 Unit/Ml Soln, 26 UNITS SUBQ DAILY 02/09/18 Aspirin (ASPIRIN) 81 Mg Tab.chew, 81 MG PO QDAY, TAB.CHEW 02/09/18 Lisinopril (LISINOPRIL) 10 Mg Tablet, 10 MG PO QDAY, TAB 02/08/18 Discontinued Reported Medications Insulin Lispro 100 Un/Ml Vial (HUMALOG 100 U/ML VIAL) 100 Unit/1 Ml Vial, 4 UNITS SUBQ ACHS 02/09/18 Discontinued Scripts Hydrocodone Bit/Acetaminophen (HYDROCODON-ACETAMINOPHEN 5-325) 1 Each Tablet, 1 EACH PO Q4-6H Y for PAIN, #8 TAB 0 Refills Prov:RAISSA CORREA [facility] 03/24/18 Ondansetron (ZOFRAN ODT) 4 Mg Tab.rapdis, 4 MG PO Q6H Y for NAUSEA/VOMITING, # 20 TAB.FRANCESCA 0 Refills Prov:RAISSA OCRREA [facility] 03/23/18 Potassium Chloride (POTASSIUM CHLORIDE) 20 Meq Tab.er.prt, 20 MEQ PO BIDBS, #60 TAB Prov:LALI PRATER DO 02/11/18 Diet: Regular Special Instructions: FOLLOW UP WITH YOUR PRIMARY CARE PHYSICIAN. Copies to: ALAN DUMONT NP Venous Thromboembolism Antithrombotics Is Pt On Any Antithrombotics?: No Problem Qualifiers (1) ARF (acute renal failure): Acute renal failure type: unspecified Qualified Codes: N17.9 - Acute kidney failure, unspecified MARTA SONG [facility] May 08, 2018 09:45
== END 2018-05-08 09:32 | disposition home or self-care (01) | DRG 684 ==
LOC: ER 01:53 → MED 05:49
PROVIDERS: ADMIT Internal Medicine; ATTEND Internal Medicine
DX: N17.9 Acute kidney failure, unspecified (principal); E86.0 Dehydration; E10.9 Type 1 diabetes mellitus without complications; G89.29 Other chronic pain; R11.2 Nausea with vomiting, unspecified; D72.829 Elevated white blood cell count, unspecified; F12.288 Cannabis dependence with other cannabis-induced disorder; Z79.4 Long term (current) use of insulin; Z90.49 Acquired absence of other specified parts of digestive tract
CPT/HCPCS: 36415; 36416; 74022; 74176; 81001; 82009; 82040; 82150; 82247; 82310; 82374; 82435; 82565; 82947; 82948; 83605; 83690; 83735; 84075; 84132; 84155; 84295; 84450; 84460; 84520; 85025; 96361; 96374; 96376; 99284; J1815; J2405; J2550; J7030; S0119

== ENCOUNTER 2018-05-23 00:30 | Day surgery (SDC) | payer SELFPAY ==
[2018-02-10 11:07] VITALS: Ht 175.3 cm; Wt 78.0 kg
[~2018-05-23] VITALS: Ht 175.3 cm; Wt 78.0 kg
[~2018-05-23 00:30] MED LIST changes: +DOCU100C49 PO; +LIDO700A19 TP; +ONDA4TAB9 SL
[2018-05-23] MEDS ORDERED: NORMOSOL R SOLN(*) 1000 ML BAG 1,000 ML IV PRN (06:30)
[2018-05-23] MEDS ORDERED: LIDOCAINE/SOD BICARB 8.4% SYR ID ONE (06:30)
[2018-05-23] MEDS ORDERED: PROPOFOL EMUL(*) 10MG/ML 20 ML 40 ML ONE (07:11)
[2018-05-23] MEDS ORDERED: METOCLOPRAMIDE 10 MG TAB PO ONE (07:40)
[2018-05-23 08:07] VITALS: BP 172/91
[2018-05-23] MEDS ORDERED: PROPOFOL EMUL(*) 10MG/ML 20 ML 20 ML ONE (09:12)
[2018-05-23 09:33] VITALS: BP 82/55
--- NOTE | 2018-05-23 09:39 | Short(Outpt) Discharge Summary ---
Discharge Summary Reason for Hosp/Final Diag: (1) Colon cancer screening Status: Chronic Hospital Course & Plan: Colonoscopy with polypectomy x4 completed without problems. Departure Discharge to: Home, Self Care Discharge Instructions Home Meds Active Scripts Lidocaine (Lidocaine) 5 % Adh..patch, 1 EACH TP QDAY PRN for pain, #15 PATCH Prov:MARTA SONG FIRE DISPATCHER 05/08/18 Reported Medications Docusate Sodium (STOOL SOFTENER) 100 Mg Capsule, 100 MG PO DAILY, CAPSULE 05/11/18 Insulin Glargine (LANTUS) 100 Unit/Ml Soln, 26 UNITS SUBQ DAILY 02/09/18 Aspirin (ASPIRIN) 81 Mg Tab.chew, 81 MG PO QDAY, TAB.CHEW 02/09/18 Lisinopril (LISINOPRIL) 10 Mg Tablet, 10 MG PO QDAY, TAB 02/08/18 Diet: Regular Activity: As Tolerated Special Instructions: Your colonoscopy was completed without any problems and your prep was excellent (Good Job!!). I removed 4 polyps from your colon and they were sent to pathology. I didn't find anything wrong with your colon to explain your abdominal pain, the polyps are not the cause of your pain. I suspect your abdominal pain may be related to your back. My office will call you in the next week or so and let you know what the polyps are and when your next colonoscopy should be (either 3, 5, or 10 years) depending on pathology results. LALI SMITH MD May 23, 2018 09:39
[2018-05-23 09:45] VITALS: BP 149/85
[2018-05-23 10:00] VITALS: BP 165/84
[2018-05-23 10:14] VITALS: BP 155/95
[2018-05-23 10:16] VITALS: BP 170/92
== END 2018-05-23 10:27 | disposition home or self-care (01) ==
LOC: OR 00:30
PROVIDERS: ATTEND Surgery
DX: Z12.11 Encounter for screening for malignant neoplasm of colon (principal); D12.5 Benign neoplasm of sigmoid colon; D12.3 Benign neoplasm of transverse colon; E11.9 Type 2 diabetes mellitus without complications
CPT/HCPCS: 00811; 36416; 45380; 45385; 82948; 88305; J2704; J8597

== ENCOUNTER 2018-08-16 09:26 | Inpatient (IN) | payer SELFPAY ==
[2018-02-10 11:07] VITALS: Ht 175.3 cm; Wt 83.0 kg
[~2018-08-16] VITALS: Ht 175.3 cm; Wt 83.0 kg
--- NOTE | 2018-08-16 09:33 | ER Report ---
History and Physical Time Seen By MD: 09:34 HPI/ROS CHIEF COMPLAINT: Nausea and vomiting, weakness HISTORY OF PRESENT ILLNESS: This is a 58 year old male. He has had nausea and vomiting for several days now. Unable to keep much down. Mild diffuse abdominal discomfort. Diabetes with good blood sugar control prior to getting sick. He has had several episodes of vomiting in the past, has been admitted for acute renal failure recently during one episode. Multiple GI/surgical evaluations as well including cholecystectomy with intraoperative pancreatocholangiogram and recent colonoscopy. Has had chronic elevated bilirubin levels of uncertain etiology. Has been urinating small amounts infrequently the last few days. No fevers or chills with this. No urination today. No diarrhea or changes in bowels. No chest pain or shortness of breath. Allergies: Coded Allergies: No Known Drug Allergies (Unverified , 03/23/18) Home Meds Reported Medications Insulin Glargine (LANTUS) 100 Unit/Ml Soln, 26 UNITS SUBQ DAILY 02/09/18 Aspirin (ASPIRIN) 81 Mg Tab.chew, 81 MG PO QDAY, TAB.CHEW 02/09/18 Lisinopril (LISINOPRIL) 10 Mg Tablet, 10 MG PO QDAY, TAB 02/08/18 Discontinued Reported Medications Docusate Sodium (STOOL SOFTENER) 100 Mg Capsule, 100 MG PO DAILY, CAPSULE 05/11/18 Discontinued Scripts Lidocaine (Lidocaine) 5 % Adh..patch, 1 EACH TP QDAY PRN for pain, #15 PATCH Prov:MARTA SONG [employer] 05/08/18 Reviewed Nurses Notes: Yes Hx Smoking: Yes Smoking Status: Former Smoker Exposure to Second Hand Smoke?: No Hx Substance Use Disorder: Yes (Cocaine. Stopped 13 years ago.) Hx Alcohol Use: No Constitutional Vital Sign - Last 24 Hours 08/16/18 08/16/18 08/16/18 08/16/18 09:37 10:31 12:00 12:30 Temp 97.8 Pulse 99 67 83 Resp 20 B/P (MAP) 160/99 157/87 (110) 153/88 (109) Pulse Ox 95 97 99 O2 Delivery Room Air O2 Flow Rate 2.0 08/16/18 13:00 Pulse 79 B/P (MAP) 152/86 (108) Pulse Ox 97 Intake and Output 08/16/18 08/16/18 08/17/18 14:58 22:58 06:58 Intake Total 2300 ml Balance 2300 ml Physical Exam General Appearance: The patient is alert. Having some distress when vomiting. Ill appearing. Eyes: Pupils are equal, round. No pallor, injection or icterus. ENT: Mucous membranes are dry. Otherwise normal oral mucosa. Posterior oropharynx is normal. Neck: Supple and non tender. Respiratory: Lungs are clear to auscultation. Cardiovascular: Regular rate and rhythm. No murmurs, gallops or rubs. Normal capillary refill. No edema. Gastrointestinal: Abdomen is soft, diffuse discomfort, but no focal tenderness. Nondistended. Normal active bowel sounds. No costovertebral angle tenderness wit h percussion. Neurological: Alert and oriented x3. No focal neurologic deficits Skin: Warm and dry. DIFFERENTIAL DIAGNOSIS: After history and physical exam, differential diagnosis was considered for nausea and vomiting with signs of dehydration. Will look for causes of this including gastrointestinal causes such as obstruction, gastroenteritis, colitis, and metabolic problems such as dehydration, diabetes with ketoacidosis, other metabolic or renal problems given his past history. Medical Decision Making Data Points Result Diagram: 08/17/18 0529 08/17/18 0529 Laboratory Hematology Test 08/16/18 00:00 08/16/18 09:45 08/16/18 12:50 Urine Random Creatinine 205.3 mg/dl Urine Random Sodium 8 MEQ/L Total Bilirubin 3.9 mg/dl (0.2-1.3) Aspartate Amino Transf (AST/SGOT) 42 U/L (0-35) Alanine Aminotransferase (ALT/SGPT) 35 U/L (0-56) Alkaline Phosphatase 96 U/L (0-126) Troponin I 0.034 ng/ml Total Protein 9.7 g/dl (6.3-8.2) Albumin 5.5 g/dl (3.5-5.0) Amylase Level 65 U/L (0-110) Lipase 27 U/L (23-300) Acetone, Qualitative Negative Urine Color Yellow Urine Clarity Slightly-cloudy Urine pH 5.0 pH (4.8-9.5) Urine Specific [place] 1.017 Urine Protein 30 mg/dL (NEGATIVE) Urine Glucose (UA) 50 mg/dL (NEGATIVE) Urine Ketones Negative mg/dL (NEGATIVE) Urine Blood Small (NEGATIVE) Urine Nitrite Negative (NEGATIVE) Urine Bilirubin Negative (NEGATIVE) Urine Urobilinogen Negative mg/dL (0.2-1.9) Urine Leukocyte Esterase Negative (NEGATIVE) Urine RBC 1 /HPF (0-2/HPF) Urine WBC 2 /HPF (0-5/HPF) Urine Squamous Epithelial Cells Many /LPF (</=FEW) Urine Bacteria Negative /HPF (NONE-FEW) Urine Hyaline Casts Many /LPF (NONE-FEW) Urine Mucus Few /HPF (NONE-FEW) Chemistry Test 08/16/18 00:00 08/16/18 09:45 08/16/18 12:50 Urine Random Creatinine 205.3 mg/dl Urine Random Sodium 8 MEQ/L Total Bilirubin 3.9 mg/dl (0.2-1.3) Aspartate Amino Transf (AST/SGOT) 42 U/L (0-35) Alanine Aminotransferase (ALT/SGPT) 35 U/L (0-56) Alkaline Phosphatase 96 U/L (0-126) Troponin I 0.034 ng/ml Total Protein 9.7 g/dl (6.3-8.2) Albumin 5.5 g/dl (3.5-5.0) Amylase Level 65 U/L (0-110) Lipase 27 U/L (23-300) Acetone, Qualitative Negative Urine Color Yellow Urine Clarity Slightly-cloudy Urine pH 5.0 pH (4.8-9.5) Urine Specific [place] 1.017 Urine Protein 30 mg/dL (NEGATIVE) Urine Glucose (UA) 50 mg/dL (NEGATIVE) Urine Ketones Negative mg/dL (NEGATIVE) Urine Blood Small (NEGATIVE) Urine Nitrite Negative (NEGATIVE) Urine Bilirubin Negative (NEGATIVE) Urine Urobilinogen Negative mg/dL (0.2-1.9) Urine Leukocyte Esterase Negative (NEGATIVE) Urine RBC 1 /HPF (0-2/HPF) Urine WBC 2 /HPF (0-5/HPF) Urine Squamous Epithelial Cells Many /LPF (</=FEW) Urine Bacteria Negative /HPF (NONE-FEW) Urine Hyaline Casts Many /LPF (NONE-FEW) Urine Mucus Few /HPF (NONE-FEW) Toxicology Test 08/16/18 09:45 Acetone, Qualitative Negative Urinalysis Test 08/16/18 00:00 08/16/18 12:50 Urine Random Creatinine 205.3 mg/dl Urine Random Sodium 8 MEQ/L Urine Color Yellow Urine Clarity Slightly-cloudy Urine pH 5.0 pH (4.8-9.5) Urine Specific [place] 1.017 Urine Protein 30 mg/dL (NEGATIVE) Urine Glucose (UA) 50 mg/dL (NEGATIVE) Urine Ketones Negative mg/dL (NEGATIVE) Urine Blood Small (NEGATIVE) Urine Nitrite Negative (NEGATIVE) Urine Bilirubin Negative (NEGATIVE) Urine Urobilinogen Negative mg/dL (0.2-1.9) Urine Leukocyte Esterase Negative (NEGATIVE) Urine RBC 1 /HPF (0-2/HPF) Urine WBC 2 /HPF (0-5/HPF) Urine Squamous Epithelial Cells Many /LPF (</=FEW) Urine Bacteria Negative /HPF (NONE-FEW) Urine Hyaline Casts Many /LPF (NONE-FEW) Urine Mucus Few /HPF (NONE-FEW) EKG/Imaging EKG Interpretation 12 lead EKG: Rhythm: normal sinus rhythm, rate 85 [place]: normal QRS: normal ST segments: normal Imaging Exam type: ACUTE ABDOMEN SERIES 3 VIEW History: Abdomen pain starting Tuesday, has been vomiting since Comparison: May 06, 2018. Findings: Bowel gas pattern is nonspecific. Surgical clips are present right upper quadrant of abdomen. There is no evidence of organomegaly. Surgical clips are present right upper quadrant abdomen. PA of the chest reveals no evidence of pulmonary consolidation or pleural effusions. The cardiac silhouette is normal in size. There are spondylotic changes of the thoracolumbar spine IMPRESSION: 1. Nonspecific bowel gas pattern Lungs free of consolidation Report Dictated By: Makenna Key MD at 08/16/2018 10:39 AM KIDNEYS EXAMINATION: Renal ultrasound. History: Exam type: KIDNEYS History: n/v, acute renal failure COMPARISON STUDIES: CT on pelvis May 06, 2018 FINDINGS: Kidneys: Right kidney- 12.2 x 7.2 x 5.9 cm Left kidney- 12.1 x 5.6 x 5.8 cm Uniform and symmetric blood flow in each kidney by Doppler ultrasound. Hydronephrosis: none Resistive index on the right 0.74 and on the left 0.72 Bladder: Prevoid volume 334 mL. Post void residual 126 mL. Bilateral ureteral jets are present Abdominal aorta and IVC: Aorta and IVC are patent by Doppler ultrasound. IMPRESSION: Kidneys appear unremarkable sonographically Post void bladder residual 126 mL Report Dictated By: Makenna Key MD at 08/16/2018 1:04 PM ED Course/Re-evaluation Clinical Indication for ER IV: Hydration, IV Access ED Course Initial evaluation shows dehydration with acute renal failure. Still with elevated bilirubin, but no change from previous. Renal function worse than previously. Given a liter of normal saline. Still unable to urinate. Gave a second liter. Discussed with Dr. Dugan. Renal ultrasound obtained and bladder scan. He was finally able to urinate approx 200cc or urine, concentrated. About 100cc postvoid residual. Admitted for dehydration and acute renal failure due to nausea and vomiting of uncertain cause. Decision to Disposition Date: Aug 16, 2018 Decision to Disposition Time: 13:18 Depart Departure Latest Vital Signs Vital Signs Date Time Temp Pulse Resp B/P (MAP) Pulse Ox O2 Delivery O2 Flow Rate FiO2 08/16/18 13:00 79 152/86 (108) 97 08/16/18 10:31 2.0 08/16/18 09:37 97.8 20 Room Air Impression: Primary Impression: ARF (acute renal failure) Additional Impression: Nausea & vomiting Condition: Condition Unchanged Disposition: Admitted from ER Referrals: ALAN DUMONT PHYSICIAN INTERNIST (PCP) Problem Qualifiers Primary Impression: ARF (acute renal failure) Acute renal failure type: unspecified Qualified Codes: N17.9 - Acute kidney failure, unspecified Additional Impression: Nausea & vomiting Vomiting type: unspecified Vomiting Intractability: non-intractable Qualified Codes: R11.2 - Nausea with vomiting, unspecified SOURAV WERNER MD Aug 16, 2018 09:33
[2018-08-16] MEDS ORDERED: NS(*) 0.9% 1000 ML BAG 1,000 ML IV ONE ×2 (09:38→11:25)
[2018-08-16] MEDS ORDERED: ONDANSETRON 4 MG/2 ML VIAL IVP ONE ×2 (09:40→11:45)
[2018-08-16] MEDS ORDERED: MORPHINE 2 MG/ML SYR IVP ONE (09:40)
[2018-08-16] MEDS ORDERED: PANTOPRAZOLE SOD 40 MG IV VIAL IVP ONE (09:40)
[2018-08-16 10:00] LABS: PLATELET COUNT, AUTOMATED 293 K/uL (150-450)
--- NOTE | 2018-08-16 10:16 | EKG ---
[place] [facility] [place] NAME: VASHTI SNELL : [id number] MR: [id number] V: [id number] EXAM DATE: ORDERING PHYSICIAN: SOURAV WERNER TECHNOLOGIST: Test Reason : Blood Pressure : / mmHG Vent. Rate : 085 BPM Atrial Rate : 085 BPM P-R Int : 158 ms QRS Dur : 092 ms QT Int : 362 ms P-R-T Axes : 057 066 055 degrees QTc Int : 430 ms Normal sinus rhythm Normal ECG When compared with ECG of 02-FEB-2018 22:10, No significant change was found Confirmed by Ragnel Branch ([id number]) on 08/16/2018 6:51:56 PM Referred By: DEBBI Confirmed By:Rangel Glass
--- NOTE | 2018-08-16 10:45 | RADIOLOGY IMAGING REPORT ---
[place] [facility] [place] Nikhil Oroczo : 1960 MR: [id number] V: [id number] EXAM DATE: ORDERING PHYSICIAN: SOURAV WERNER TECHNOLOGIST: Location: [facility] - [place] Patient: Nikhil Orozco : 1960 Visit/Account:[id number] Date of Sevice: 08/16/2018 Exam type: ACUTE ABDOMEN SERIES 3 VIEW History: Abdomen pain starting Tuesday, has been vomiting since Comparison: May 06, 2018. Findings: Bowel gas pattern is nonspecific. Surgical clips are present right upper quadrant of abdomen. There is no evidence of organomegaly. Surgical clips are present right upper quadrant abdomen. PA of the chest reveals no evidence of pulmonary consolidation or pleural effusions. The cardiac mark [place] is normal in size. There are spondylotic changes of the thoracolumbar spine IMPRESSION: 1. Nonspecific bowel gas pattern Lungs free of consolidation Report Dictated By: Makenna Key MD at 08/16/2018 10:39 AM Report E-Signed By: Makenna Key MD at 08/16/2018 10:40 AM WSN:[email or web address]
--- NOTE | 2018-08-16 13:12 | RADIOLOGY IMAGING REPORT ---
FACILITY: [facility] - [place] PATIENT NAME: Nikhil Orozco : 1960 MR: [id number] V: [id number] EXAM DATE: ORDERING PHYSICIAN: SOURAV WERNER TECHNOLOGIST: Location: [facility] - [place] Patient: Nikhil Orozco : 1960 Visit/Account:[id number] Date of Sevice: 08/16/2018 KIDNEYS EXAMINATION: Renal ultrasound. History: Exam type: KIDNEYS History: n/v, acute renal failure COMPARISON STUDIES: CT on pelvis May 06, 2018 FINDINGS: Kidneys: Right kidney- 12.2 x 7.2 x 5.9 cm Left kidney- 12.1 x 5.6 x 5.8 cm Uniform and symmetric blood flow in each kidney by Doppler ultrasound. Hydronephrosis: none Resistive index on the right 0.74 and on the left 0.72 Bladder: Prevoid volume 334 mL. Post void residual 126 mL. Bilateral ureteral jets are present Abdominal aorta and IVC: Aorta and IVC are patent by Doppler ultrasound. IMPRESSION: Kidneys appear unremarkable sonographically Post void bladder residual 126 mL Report Dictated By: Makenna Key MD at 08/16/2018 1:04 PM Report E-Signed By: Makenna Key MD at 08/16/2018 1:07 PM WSN:[email or web address]
[2018-08-16 13:46] VITALS: BP 146/75
[2018-08-16] MEDS ORDERED: FLUSH 10 ML SYR IVP PRN (14:20)
[2018-08-16] MEDS ORDERED: ACETAMINOPHEN 325 MG TAB PO PRN (14:20)
[2018-08-16 14:52] VITALS: BP 144/80
[2018-08-16] MEDS: ONDANSETRON 4 MG/2 ML VIAL IVP PRN ×2 (15:11→19:28)
[2018-08-16] MEDS ORDERED: INSULIN HUM LISPRO 100 UN/ML 3 ML VIAL SUBQ PRN (16:05)
--- NOTE | 2018-08-16 16:25 | History & Physical ---
History of Present Illness Chief Complaint nausea/vomiting History of Present Illness 58M with PMHx chronic n/v admitted for ERENDIRA, hypovolemia. Reports 2 days unable to take PO. 2 episodes of loose stool once Tuesday and once Tuesday, denies blood, fever. In ER noted anuric and Cr 4.6, BP 160 systolic. After IV NS able to urinate and admitted for further monitoring and hydration. Has had episodes of vomiting in past necessitating IV fluids for ERENDIRA, last . History Problems: (1) Diabetes mellitus Status: Chronic (2) Nausea & vomiting Status: Chronic (3) Abdominal pain Status: Chronic Home Meds Reported Medications Insulin Glargine (LANTUS) 100 Unit/Ml Soln, 26 UNITS SUBQ DAILY 02/09/18 Aspirin (ASPIRIN) 81 Mg Tab.chew, 81 MG PO QDAY, TAB.CHEW 02/09/18 Lisinopril (LISINOPRIL) 10 Mg Tablet, 10 MG PO QDAY, TAB 02/08/18 Discontinued Reported Medications Docusate Sodium (STOOL SOFTENER) 100 Mg Capsule, 100 MG PO DAILY, CAPSULE 05/11/18 Discontinued Scripts Lidocaine (Lidocaine) 5 % Adh..patch, 1 EACH TP QDAY PRN for pain, #15 PATCH Prov:SONGMARTA SOFA INSPECTOR 05/08/18 Allergies: Coded Allergies: No Known Drug Allergies (Unverified , 03/23/18) Patient History: FH: CAD (coronary artery disease) FATHER, , Age:85 FH: COPD (chronic obstructive pulmonary disease) FATHER, , Age:85 FH: HTN (hypertension) FATHER, , Age:85 FH: breast cancer MOTHER, , Age:74 FH: dementia FATHER, , Age:85 FH: pulmonary embolism FATHER, , Age:85 Stroke or transient ischemic attack in father FATHER, , Age:85 Vascular disease MOTHER, , Age:74 Hx Smoking: Yes Smoking Status: Former Smoker Exposure to Second Hand Smoke?: No When Quit Tobacco?: 14 yrs Caffeine/Cups Per Day: 1 cup per day Hx Alcohol Use: No Hx Substance Use Disorder: Yes (Marijuana) Social Drug Use: Currently Social Drugs: Marijuana, Meth, Amphetamines, Mushrooms, Cocaine, LSD History of IV Drug Use: Yes Review of Systems All Systems Reviewed/Normal: Yes, Except as Noted Constitutional: No Fever Gastrointestinal: Nausea, Vomiting Musculoskeletal: Pain Exam Vital Signs Vital Signs Date Time Temp Pulse Resp B/P (MAP) Pulse Ox O2 Delivery O2 Flow Rate FiO2 08/16/18 15:25 97 08/16/18 14:52 97.9 70 14 144/80 (101) Nasal Cannula 2.5 General Appearance: Alert, Awake, No Acute Distress, Afebrile Neuro: No Gross deficits Eyes: PERRLA ENT: Normal Neck: No Masses Cardiovascular: Normal Rhythm & Peripheral Pulses Respiratory: No Respiratory Distress GI: Abd Soft and Non-Tender Musculoskeletal: No Weakness/Pain Extremities: Soft and Non Tender, Warm, Pulses, Perfused; No Edema Integumentary: Skin Intact without Lesion / Mass Psych: Alert & Oriented X3 Medical Decision Making Data Points Result Diagram: 08/16/1894408/16/18 09 EKG / Imaging Imaging Renal US- IMPRESSION: Kidneys appear unremarkable sonographically Assessment and Plan Problems: (1) ARF (acute renal failure) Status: Acute Assessment & Plan: Baseline Cr 1.0-1.2, Cr on admission 4.6. Some urine output after IV fluid in ER, signs hemoconcentration. Suspect due to hypovolemia also on AMARILYS which may exacerbate. Monitor UOP, IV NS at 150cc/hr, recheck CBC and CMP in evening. FENa 0.14% correlates with prerenal picture. (2) Hypovolemia Assessment & Plan: Hyponatremia and hypochloremia due to hypovolemia. BP was elevated on presentation likely due to catecholamines, decreased with IV fluids. (3) Diabetes mellitus Status: Chronic Assessment & Plan: Poorly controlled, on Lantus 26U daily. Last A1c >14.0. Recheck A1c, begin SSI and Lantus 20U daily. Accucheck q6h until taking better PO then ACHS. (4) Abdominal pain Status: Chronic Assessment & Plan: Chronic, unclear etiology. (5) Nausea & vomiting Status: Chronic Assessment & Plan: Chronic bouts, has been doing well until recently. Possible viral gastroenteritis, no ketones or anion gap despite elevated glucose. Venous Thromboembolism Antithrombotics Is Pt On Any Antithrombotics?: No (SCD only due to Cr) Exam Sepsis Risk: No Definite Risk Problem Qualifiers (1) ARF (acute renal failure): Acute renal failure type: unspecified Qualified Codes: N17.9 - Acute kidney failure, unspecified (2) Nausea & vomiting: Vomiting type: unspecified Vomiting Intractability: non-intractable Qualified Codes: R11.2 - Nausea with vomiting, unspecified CLINTON SPAULDING DO Aug 16, 2018 16:25
[2018-08-16 19:38] VITALS: BP 153/78
[2018-08-16 20:27] LABS: PLATELET COUNT, AUTOMATED 241 K/uL (150-450)
[2018-08-16] MEDS ORDERED: INSULIN GLARGINE 100 U/ML 3 ML PEN SUBQ SCH (21:00)
[2018-08-16] MEDS: METOCLOPRAMIDE 10 MG/2 ML SDV IVP PRN (22:04)
[2018-08-17] VITALS (7 sets, daily range): BP systolic 120–145; BP diastolic 62–86
[2018-08-17] MEDS: NS(*) 0.9% 1000 ML BAG 1,000 ML IV PRN ×2 (00:47→20:47)
[2018-08-17] MEDS: ONDANSETRON 4 MG/2 ML VIAL IVP PRN ×4 (00:54→20:02)
[2018-08-17 05:47] LABS: PLATELET COUNT, AUTOMATED 247 K/uL (150-450)
[2018-08-17] MEDS: METOCLOPRAMIDE 10 MG/2 ML SDV IVP PRN ×3 (05:52→18:05)
[2018-08-17] MEDS: INSULIN GLARGINE 100 U/ML 3 ML PEN SUBQ SCH (10:20)
[2018-08-17] MEDS: ASPIRIN 81 MG ENTERIC COATED PO SCH (10:20)
[2018-08-17] MEDS ORDERED: INFLUENZA VIRUS VAC 0.5ML SYR IM ONLY ONE (14:20)
--- NOTE | 2018-08-17 14:35 | Hospitalist Progress Note ---
Subjective Progress Notes Subjective He has complaints of nausea. He has not had much appetite also. Patient Complains of: Cardiovascular: No: Chest Pain Respiratory: No: Shortness of Breath Physical Exam Vital Signs Date Time Temp Pulse Resp B/P (MAP) Pulse Ox O2 Delivery O2 Flow Rate FiO2 08/17/18 12:22 98.2 58 16 145/85 (105) 99 Nasal Cannula 1.5 Intake and Output 08/16/18 23:58 Intake Total 2300 ml Output Total 1025 ml Balance 1275 ml Intake Oral 300 ml IV Total 2000 ml Output Urine Total 1025 ml # Voids 2 # [place] 2 General Appearance: Alert, Awake, No Acute Distress, Afebrile Neuro: No Gross deficits Cardiovascular: Regular Rate and Rhythm Respiratory: No Respiratory Distress, Clear to Auscultation GI: Soft and Non-Tender Psych: Alert & Oriented X3, Appropriate Mood & Affect Result Diagram: 08/17/1852808/17/18528 Assessment and Plan Problems: (1) ARF (acute renal failure) Status: Acute Assessment & Plan: Baseline Cr 1.0-1.2, Cr on admission 4.6. Some urine output after IV fluid in ER, signs hemoconcentration. Suspect due to hypovolemia also on AMARILYS which may exacerbate. Monitor UOP, continue IV hydration. FENa 0.14% correlates with prerenal picture. Will recheck labs in the morning. (2) Nausea & vomiting Status: Chronic Assessment & Plan: Chronic bouts, has been doing well until recently. Possible viral gastroenteritis, no ketones or anion gap despite elevated glucose. (3) Hypovolemia Status: Acute Assessment & Plan: Hyponatremia and hypochloremia due to hypovolemia. BP was elevated on presentation likely due to catecholamines, decreased with IV fluids. (4) Diabetes mellitus Status: Chronic Assessment & Plan: Poorly controlled, on Lantus 26U daily. Last A1c >14.0. A1c now 6.0, begin SSI and Lantus 20U daily. Accucheck q6h until taking better PO then ACHS. (5) Abdominal pain Status: Chronic Assessment & Plan: Chronic, unclear etiology. Exam Sepsis Risk: No Definite Risk Problem Qualifiers (1) ARF (acute renal failure): Acute renal failure type: unspecified Qualified Codes: N17.9 - Acute kidney failure, unspecified (2) Nausea & vomiting: Vomiting type: unspecified Vomiting Intractability: non-intractable Qualified Codes: R11.2 - Nausea with vomiting, unspecified MARTA SONG MAIL PROCESSING CLERK Aug 17, 2018 14:35
[2018-08-17] MEDS: CALCIUM CARBONATE 500 MG CHEW PO PRN (20:02)
[2018-08-18] MEDS: METOCLOPRAMIDE 10 MG/2 ML SDV IVP PRN ×2 (00:16→08:29)
[2018-08-18] MEDS: ONDANSETRON 4 MG/2 ML VIAL IVP PRN ×2 (01:45→10:24)
[2018-08-18 02:26] VITALS: BP 122/78
[2018-08-18] MEDS: CALCIUM CARBONATE 500 MG CHEW PO PRN (05:07)
[2018-08-18 06:40] LABS: PLATELET COUNT, AUTOMATED 217 K/uL (150-450)
[2018-08-18 08:00] VITALS: BP 133/76
[2018-08-18] MEDS: ASPIRIN 81 MG ENTERIC COATED PO SCH (08:22)
[2018-08-18] MEDS: INSULIN GLARGINE 100 U/ML 3 ML PEN SUBQ SCH (08:23)
--- NOTE | 2018-08-18 09:58 | Medical Nutrition Therapy ---
Nutrition Anthropometrics Height (Inches): 69.00 Height (Calculated Centimeters: [phone] Weight (Pounds): 183 Weight (Calculated Kilograms): 83.007 BMI: 27 Awais Nutrition Score: Adequate Awais Nutrition Risk Score: 20 Dietary Referral Nutrition Risk Factors: Nutrition Risk Comment: Physical Findings Physical Appearance: Overweight BMI 25-29 Skin Appearance Skin Appearance: Edema Edema Location Modifier: Edema Location: Type of Edema: Degree of Edema: Gastrointestinal Symptoms GI Symtoms: Nausea, Appetite Changes Tube Present: Bowel Sounds: Recent Bowel Pattern: Diarrhea Stool Characteristics: Nutritional Diagnosis Nutritional Risk Acuity 1: Acute/ES Renal Nutritional Risk Acuity 3: Nausea Past Medical History: T2DM, back pain, marijuana use, HTN Nutritional Acuity: 1-High Nutrition Diagnosis: Decreased Nutrient Needs Nutrition Etiology: Physiological Causes Nutrition Problem/Etiology/Sym: Decreased protein needs r/t physiological causes AEB ARF - BUN 72, Creatinine 4.6 (at admission) Energy Requirement: 2150 (M-SJ * 1.3) Protein Requirement: 65 (.8g/kg) Fluid Requirement: 2150 (1ml/kcal) Diet Type: Diabetic Nutrition Intervention: Cont diet as ordered, Encourage intake Nutrition Monitoring & Eval Nutrition Goals: Eat 75-100% Meal, Drink > 1500 cc/day RD Patient Assessment Time: [address] Assessment Type: RD Assessment Patient Nutrition Acuity: 1-High Follow Up Date: Aug 19, 2018 Nutritional Comment: 08/17 Pt admitted for Acute Renal Failure. Hx of T2DM, back pain, HTN. Pt experiencing n/v, very poor appetite, and abd pain. Pt on diabetic diet, consumed 50% of dinner on 08/16, only a few crackers today for breakfast, no lunch. Pt WBC are decreasing, down to 14.4. Creatinine down from 4.6 to 1.4. BUN down from 72 to 37. Pt A1c a little high at 6.1 with BG ranging from 140-160s today. Na low at 131, Carbon dioxide increasing to 92. Will follow labs and intake. CAITIE VASQUEZ Aug 17, 2018 17:14
[2018-08-18] MEDS ORDERED: ONDA4TAB97 PO (10:51)
--- NOTE | 2018-08-18 10:55 | Hospitalist Depart ---
Discharge Summary Reason for Hosp/Final Diag: (1) ARF (acute renal failure) Status: Acute Hospital Course & Plan: Baseline Cr 1.0-1.2, Cr on admission 4.6. Some urine output after IV fluid in ER, signs hemoconcentration. Suspect due to hypovolemia also on AMARILYS which may exacerbate. Monitor UOP, continue IV hydration. FENa 0.14% correlates with prerenal picture. Creatinine improved to 0.9. (2) Nausea & vomiting Status: Chronic Hospital Course & Plan: Chronic bouts, has been doing well until recently. Possible viral gastroenteritis, no ketones or anion gap despite elevated glucose. (3) Hypovolemia Status: Acute Hospital Course & Plan: Hyponatremia and hypochloremia due to hypovolemia. BP was elevated on presentation likely due to catecholamines, decreased with IV fluids. (4) Diabetes mellitus Status: Chronic Hospital Course & Plan: Poorly controlled, on Lantus 26U daily. Last A1c >14.0. A1c now 6.0, he has been on SSI and Lantus 20U daily. (5) Abdominal pain Status: Chronic Hospital Course & Plan: Chronic, unclear etiology. Departure Latest Vital Signs Vital Signs 08/17/18 08/18/18 22:46 09:30 Pulse Ox 96 O2 Delivery Room Air O2 Flow Rate 1.0 Weight (Pounds): 183 Weight (Ounces): 6.0 Result Diagram: 08/18/1861608/[id number]/18616 Condition: Improved Discharge: Home, Self Care Discharge Instructions Home Meds Active Scripts Ondansetron Hcl (ZOFRAN) 4 Mg Tablet, 4 MG PO Q12H PRN for NAUSEA, #20 TAB Prov:MARTA SONG SPEECH TEACHER 08/18/18 Reported Medications Insulin Glargine (LANTUS) 100 Unit/Ml Soln, 26 UNITS SUBQ DAILY 02/09/18 Aspirin (ASPIRIN) 81 Mg Tab.chew, 81 MG PO QDAY, TAB.CHEW 02/09/18 Lisinopril (LISINOPRIL) 10 Mg Tablet, 10 MG PO QDAY, TAB 02/08/18 Discontinued Reported Medications Docusate Sodium (STOOL SOFTENER) 100 Mg Capsule, 100 MG PO DAILY, CAPSULE 05/11/18 Discontinued Scripts Lidocaine (Lidocaine) 5 % Adh..patch, 1 EACH TP QDAY PRN for pain, #15 PATCH Prov:MARTA SONG SPEECH TEACHER 05/08/18 Diet: Regular, Diabetic Activity: As Tolerated Copies to: ALAN DUMONT HIST[employer]IC SITE ADMINISTRATOR ; Venous Thromboembolism Antithrombotics Is Pt On Any Antithrombotics?: No (SCD only due to Cr) Problem Qualifiers (1) ARF (acute renal failure): Acute renal failure type: unspecified Qualified Codes: N17.9 - Acute kidney failure, unspecified (2) Nausea & vomiting: Vomiting type: unspecified Vomiting Intractability: non-intractable Qualified Codes: R11.2 - Nausea with vomiting, unspecified MARTA SONG SPEECH TEACHER Aug 18, 2018 10:55
== END 2018-08-18 11:45 | disposition home or self-care (01) | DRG 683 ==
LOC: ER 09:34 → MED 13:28
PROVIDERS: ADMIT Internal Medicine; ATTEND Internal Medicine
DX: N17.9 Acute kidney failure, unspecified (principal); E87.1 Hypo-osmolality and hyponatremia; E86.1 Hypovolemia; E86.0 Dehydration; E11.65 Type 2 diabetes mellitus with hyperglycemia; G89.29 Other chronic pain; T44.5X5A Adverse effect of predominantly beta-adrenoreceptor agonists, initial encounter; E87.8 Other disorders of electrolyte and fluid balance, not elsewhere classified; K52.9 Noninfective gastroenteritis and colitis, unspecified; Z23 Encounter for immunization; Z79.4 Long term (current) use of insulin; Z87.891 Personal history of nicotine dependence; Z90.49 Acquired absence of other specified parts of digestive tract
CPT/HCPCS: 36415; 36416; 74022; 76705; 81001; 82009; 82040; 82150; 82247; 82310; 82374; 82435; 82565; 82570; 82947; 82948; 83036; 83690; 84075; 84132; 84155; 84295; 84300; 84450; 84460; 84484; 84520; 85025; 90674; 93005; 96361; 96374; 96375; 96376; 99285; C9113; J1815; J2270; J2405; J2765; J7030